=== PATIENT | female | born 1935 | race Caucasian/White ===

== ENCOUNTER 2019-01-11 16:30 | Emergency (ER) | payer MEDICARE, BC ==
[~2019-01-11] VITALS: Ht 162.6 cm; Wt 70.9 kg
[2019-01-11 16:35] VITALS: Ht 162.6 cm; Wt 70.9 kg
[2019-01-11] MEDS ORDERED: LEXAPRO10 MG (16:48)
[2019-01-11] MEDS ORDERED: FLUTICASONE PRO16 GM NASAL (16:49)
[2019-01-11] MEDS ORDERED: LYRICA50 MG (16:49)
[2019-01-11] MEDS ORDERED: MELATONIN10 M1 (16:49)
[2019-01-11] MEDS ORDERED: RISPERDAL1 MG PO (16:50)
[2019-01-11] MEDS ORDERED: TOPROL XL50 MG (16:50)
[2019-01-11] MEDS ORDERED: VITAMIN D3400 UNI1 PO (16:51)
[2019-01-11] MEDS ORDERED: ZOCOR20 MG PO (16:51)
[2019-01-11] MEDS ORDERED: TRAZODONE HCL150 MG PO (16:51)
[2019-01-11] MEDS ORDERED: TYLENOL650 MG (16:52)
[2019-01-11] MEDS ORDERED: ARTIFICIAL TEAR15 ML (16:52)
[2019-01-11 19:01] VITALS: BP 157/67
== END 2019-01-11 18:53 | disposition home or self-care (01) ==
LOC: D.ER 16:30
DX: M25.552 Pain in left hip (principal); M54.2 Cervicalgia; W07.XXXA Fall from chair, initial encounter; Y93.89 Activity, other specified; Y92.099 Unspecified place in other non-institutional residence as the place of occurrence of the external cause

== ENCOUNTER 2019-03-23 13:21 | Inpatient (IN) | payer MEDICARE, BC ==
[~2019-03-23 13:21] MED LIST: ARTIFICIAL TEAR15 ML; FLUTICASONE PRO16 GM NASAL; LEXAPRO10 MG; LYRICA50 MG; MELATONIN10 M1; RISPERDAL1 MG PO; TOPROL XL50 MG; TRAZODONE HCL150 MG PO; TYLENOL650 MG; VITAMIN D3400 UNI1 PO; ZOCOR20 MG PO
[2019-03-23] MEDS ORDERED: COLACE100 MG PO (13:31)
[2019-03-23] MEDS ORDERED: METOPROLOL TART50 MG PO (13:32)
[2019-03-23] MEDS ORDERED: RISPERDAL1 MG PO (13:33)
[2019-03-23] MEDS ORDERED: MUPIROCIN22 GM TOPICAL (13:33)
[2019-03-23] MEDS ORDERED: TRAZODONE HCL150 MG PO ×2 (13:35→23:16)
[2019-03-23 14:00] VITALS: BP 129/52
[2019-03-23 14:16] LABS: BASOPHILS 0.3 % (0-2); EOSINOPHILS 5.9 % (0-7); HEMATOCRIT 39.1 % (36.0-48.0); HEMOGLOBIN 13.1 g/dL (12-16); IMMATURE GRANULOCYTES 0.4 % (0-5); LYMPHOCYTES 23.9 % (15-50); MCHC 33.5 g/dL (31.0-37.0); MCV 89.7 fL (80.0-100.0); MEAN PLATELET VOLUME 11.6 fL (7.4-10.4); NEUTROPHILS 60.5 % (40-80); PLATELET COUNT 156 10x3/uL (130-400); RBC 4.36 10x6/uL (4.00-5.40); RDW 13.6 % (11.5-14.5); WBC 7.1 10x3/uL (4.8-10.8)
[2019-03-23 14:18] LABS: APTT 27.8 SECONDS (22.8-39.4); INR 1.07 (0.85-1.17); PROTIME 13.4 SECONDS (11.6-15.0)
[2019-03-23 14:28] LABS: ALBUMIN 3.6 g/dL (3.4-5.0); ALKALINE PHOSPHATASE 53 U/L (46-116); ALT (SGPT) 21 U/L (10-68); CALC OSMOLALITY 281 mosm/kg (275-300); CALCIUM 9.3 mg/dL (8.5-10.1); CHLORIDE - SERUM 101 mmol/L (98-107); CREATININE - SERUM 1.1 mg/dL (0.6-1.3); GLUCOSE 111 mg/dL (74-106); POTASSIUM - SERUM 4.3 mmol/L (3.5-5.1); PROTEIN - SERUM 7.8 g/dL (6.4-8.2); SODIUM 140 mmol/L (136-145); UREA NITROGEN 19 mg/dL (7-18); eGFR NON AFRICAN AMERICAN 50 mL/min (90-120)
[2019-03-23 14:40] LABS: CKMB 2.5 U/L (0.0-3.6); CREATINE KINASE 93 UL (21-215); PRO BNP 402 pg/mL (0-450)
[2019-03-23 14:41] LABS: TROPONIN-I < 0.017 ng/mL (0.000-0.060)
[2019-03-23 15:05] VITALS: BP 123/46
[2019-03-23 16:05] VITALS: BP 136/59
--- NOTE | 2019-03-23 16:20 | NUR ---
RECEIVED CALL FROM [place]. SPOKE WITH HER NURSE MYKE BAUTISTA. REPORT OF CONDITION GIVEN. INFORMED HER OF THE ADMISSION. MYKE BAUTISTA STATES THAT SHE WILL BE CALLING PT DAUGHTER TO UPDATE ON CONDITION AND WILL INFORM HER OF THE ADMISSION.
[2019-03-23 17:05] VITALS: BP 134/56
--- NOTE | 2019-03-23 17:50 | MORECARE ---
CASE MANAGEMENT DISCHARGE SUMMARY PATIENT: ANDI BRODY UNIT: [id number] ADM DATE: 03/23/19 AGE: 84 : 33 SEX: F ROOM/BED: D.2234 AUTHOR: HANSA GUAMAN PHYSICIAN: REFERRING PHYSICIAN: KAROLYN BANERJEE MD DATE OF SERVICE: 03/23/19 Discharge Plan Patient Name: ANDI BRODY [facility] [facility] 1935 Planned Disposition: Anticipated Discharge Date: Discharge Date: Expected LOS: Initial Reviewer: [email or web address] Initial Review Date: 03/23/2019 Generated: 03/23/19 6:50 pm Patient Name: ANDI BRODY Page [id number] at 1750 All edits/amendments must be made on the electronic document DICTATION DATE: 03/23/191748 AERONAUTICAL DESIGN ENGINEER: JERROD 03/23/191748 RPT#: [id number] DC DATE: STATUS: ADM IN [facility] [address] [place] [address] END OF REPORT
--- NOTE | 2019-03-23 19:15 | NUR ---
RECEIVED CARE FROM DAY NURSE. ASSISTED TO BATHROOM AND BACK TO BED. IV TO RIGHT AC AT O.
[2019-03-23 20:00] VITALS: BP 124/54
[2019-03-23] MEDS ORDERED: ZOCOR20 MG PO (23:01)
[2019-03-24] VITALS (7 sets, daily range): BP systolic 102–130; BP diastolic 41–63; BMI 27.5
[2019-03-24] MEDS ORDERED: ACETAMINOPHEN325 MG PO (00:19)
[2019-03-24] MEDS ORDERED: ARTIFICIAL TEAR15 ML EACH EYE (00:21)
[2019-03-24] MEDS ORDERED: KENALOG 0.1 % 115 GM TOPICAL (00:22)
[2019-03-24] MEDS ORDERED: LOPERAMIDE HCL2 MG PO (00:22)
--- NOTE | 2019-03-24 04:29 | NUR ---
I have reviewed this patient and I concur with the Shift Assessment completed by the Licensed Practical Nurse today this shift.
[2019-03-24 06:28] LABS: BASOPHILS 0 % (0-2); EOSINOPHILS 0 % (0-7); HEMATOCRIT 36.3 % (36.0-48.0); HEMOGLOBIN 11.8 g/dL (12-16); IMMATURE GRANULOCYTES 0.2 % (0-5); LYMPHOCYTES 11.3 % (15-50); MCH 29.1 pg (26.0-34.0); MCHC 32.5 g/dL (31.0-37.0); MCV 89.4 fL (80.0-100.0); MEAN PLATELET VOLUME 11.4 fL (7.4-10.4); MONOCYTES 3.6 % (2-11); NEUTROPHILS 84.9 % (40-80); RBC 4.06 10x6/uL (4.00-5.40); RDW 13.7 % (11.5-14.5); WBC 6.6 10x3/uL (4.8-10.8)
[2019-03-24 06:34] LABS: PLATELET COUNT 191 10x3/uL (130-400)
[2019-03-24 07:14] LABS: ALBUMIN 3.3 g/dL (3.4-5.0); ANION GAP 17.2 mmol/L (8-16); BILIRUBIN - TOTAL 0.36 mg/dL (0.2-1.3); CALCIUM 9.3 mg/dL (8.5-10.1); CARBON DIOXIDE 27.4 mmol/L (21.0-32.0); CREATININE - SERUM 1.1 mg/dL (0.6-1.3); POTASSIUM - SERUM 4.6 mmol/L (3.5-5.1); PROTEIN - SERUM 7.2 g/dL (6.4-8.2)
--- NOTE | 2019-03-24 09:00 | NUR ---
ALERT WITH WITH INTERMITTANT CONFUSION. COUGHING NOTED WITH SWALLOWING. ORDER FOR NPO AT THIS TIME UNTIL SPEECH CAN EVAL. LUNGS CTA. ABDOMEN SOFT WITH BS NTOED. MICHAEL MAT IN PLACE AT THIS TIME. O2 2L N/C. ENCOURAGED TO USE CALL LIGHT FOR ASSIST.
[2019-03-24 13:16] LABS: CKMB 11.5 U/L (0.0-3.6)
[2019-03-24 13:17] LABS: CREATINE KINASE 714 UL (21-215); TROPONIN-I < 0.017 ng/mL (0.000-0.060)
--- NOTE | 2019-03-24 19:15 | NUR ---
RECEIVED CARE FROM DAY NURSE. LYING IN BED ON BACK. COUGHING. CONTINUOUS PULSE OX INITIATED DUE TO FEAR OF FOOD ASPIRATION TODAY. PT REQUEST BED CARLISLE. CARLISLE PLACED AT THIS TIME BUT BED ALREADY SOILED. PT UNALBE TO GO ANYMORE. COMPLETE LINEN CHANGE DONE AT THIS TIME.
[2019-03-24 20:10] LABS: CKMB 9.1 U/L (0.0-3.6); CREATINE KINASE 741 UL (21-215); TROPONIN-I 0.036 ng/mL (0.000-0.060)
--- NOTE | 2019-03-24 23:40 | NUR ---
RECEIVED ORDER FOR TESSALON 200 MG TID FOR C/O COUGH.
[2019-03-25] VITALS: BP 123/57
[2019-03-25 01:27] LABS: CKMB 7.2 U/L (0.0-3.6); CREATINE KINASE 743 UL (21-215); TROPONIN-I 0.038 ng/mL (0.000-0.060)
--- NOTE | 2019-03-25 02:51 | NUR ---
PRODUCT DESIGN ENGINEER SHOWERING PT NOW
--- NOTE | 2019-03-25 03:25 | NUR ---
I have reviewed this patient and I concur with the Shift Assessment completed by the Licensed Practical Nurse today this shift.
[2019-03-25 04:00] VITALS: BP 131/61
[2019-03-25 05:33] LABS: BASOPHILS 0.2 % (0-2); HEMATOCRIT 33.8 % (36.0-48.0); HEMOGLOBIN 10.8 g/dL (12-16); IMMATURE GRANULOCYTES 0.3 % (0-5); MCH 29.3 pg (26.0-34.0); MEAN PLATELET VOLUME 11.6 fL (7.4-10.4); MONOCYTES 11.1 % (2-11); NEUTROPHILS 70.4 % (40-80); PLATELET COUNT 173 10x3/uL (130-400); RBC 3.69 10x6/uL (4.00-5.40); RDW 14.2 % (11.5-14.5)
[2019-03-25 06:05] LABS: BILIRUBIN - TOTAL 0.28 mg/dL (0.2-1.3); CALCIUM 8.7 mg/dL (8.5-10.1); CARBON DIOXIDE 30.1 mmol/L (21.0-32.0); CREATININE - SERUM 1.1 mg/dL (0.6-1.3); PROTEIN - SERUM 6.5 g/dL (6.4-8.2)
[2019-03-25 06:09] LABS: MCV 91.6 fL (80.0-100.0); WBC 8.6 10x3/uL (4.8-10.8)
[2019-03-25 06:13] LABS: ANION GAP 11.7 mmol/L (8-16); POTASSIUM - SERUM 3.8 mmol/L (3.5-5.1)
--- NOTE | 2019-03-25 07:15 | NUR ---
REC'D IN BED AWAKE AND ALERT. RESP EVEN AND UNLABORED WITH NO DISTRESS NOTED. CAN EXPRESS SOME NEEDS AND WANTS. NOC /O NOTED OR VOICED. ASSESSMENT COMPLETED. C/L IN REACH AT BEDSIDE.
[2019-03-25 08:16] VITALS: BP 145/61
--- NOTE | 2019-03-25 14:33 | NUR ---
OT NOTE: PT COMPLETED BED MOB WITH MIN A. PT COMPLETED EOB SITTING BALANCE WITH MIN A. PT COMPLETED HYGIENE TASKS WITH MIN A. THANK YOU, MALKA BARBOSA
[2019-03-25 14:37] VITALS: BMI 27.4
[2019-03-25 15:53] VITALS: BP 128/65
--- NOTE | 2019-03-25 16:19 | MORECARE ---
CASE MANAGEMENT DISCHARGE SUMMARY PATIENT: ANDI BRODY UNIT: [id number] ADM DATE: 03/23/19 AGE: 84 : 33 SEX: F ROOM/BED: D.2234 AUTHOR: HANSA GUAMAN PHYSICIAN: REFERRING PHYSICIAN: KAROLYN BANERJEE MD DATE OF SERVICE: 03/25/19 Discharge Plan Patient Name: ANDI BRODY [facility] [facility] 1935 Planned Disposition: Anticipated Discharge Date: Discharge Date: Expected LOS: Initial Reviewer: [email or web address] Initial Review Date: 03/23/2019 Generated: 03/25/19 5:19 pm Comments DCP- Discharge Planning Updated by [email or web address]: Magda Houston on 03/25/19 3:[address] Patient Name: ANDI BRODY Admission Status: ER Accout number: [id number] Admission Date: 03-23-2019 : 1935 Admission Diagnosis:ACUTE BRONCHITIS, UNSPECIFIED Attending: CHRISS, Current LOS: 2 Anticipated DC Date: Planned Disposition: Primary Insurance: MEDICARE A & B Discharge Planning Comments: PATIENT VERY CONFUSED AND UNABLE TO ANSWER QUESTIONS. PATIENT CHART STATES SHE IS FROM THE [facility]. CM TO FOLLOW AND ASSIST NEEDED. Extension Agent: Magda Houston Last DP export: 03/23/19 4:50 p Patient Name: ANDI BRODY Page 11786 at 1619 All edits/amendments must be made on the electronic document DICTATION DATE: 03/25/191618 KENNEL ATTENDANT: JERROD 03/25/191618 RPT#: [id number] DC DATE: STATUS: ADM IN [facility] [address] [place] [address] END OF REPORT
--- NOTE | 2019-03-25 17:07 | NUR ---
I have reviewed this patient and I concur with the Shift Assessment completed by the Licensed Practical Nurse today this shift.
[2019-03-25 20:00] VITALS: BP 143/72
[2019-03-26 06:33] VITALS: BP 121/67
[2019-03-26 06:46] LABS: BASOPHILS 0.4 % (0-2); EOSINOPHILS 2.9 % (0-7); HEMATOCRIT 33.9 % (36.0-48.0); IMMATURE GRANULOCYTES 0.3 % (0-5); LYMPHOCYTES 15.8 % (15-50); MCH 29.3 pg (26.0-34.0); MCHC 32.4 g/dL (31.0-37.0); MCV 90.4 fL (80.0-100.0); MEAN PLATELET VOLUME 11.5 fL (7.4-10.4); MONOCYTES 12.8 % (2-11); NEUTROPHILS 67.8 % (40-80); PLATELET COUNT 173 10x3/uL (130-400); RBC 3.75 10x6/uL (4.00-5.40); RDW 14.2 % (11.5-14.5); WBC 7.3 10x3/uL (4.8-10.8)
[2019-03-26 07:11] LABS: ALBUMIN 3.1 g/dL (3.4-5.0); ANION GAP 11.3 mmol/L (8-16); BILIRUBIN - TOTAL 0.95 mg/dL (0.2-1.3); CALCIUM 9.1 mg/dL (8.5-10.1); CARBON DIOXIDE 30.3 mmol/L (21.0-32.0); POTASSIUM - SERUM 3.6 mmol/L (3.5-5.1); PROTEIN - SERUM 6.9 g/dL (6.4-8.2)
--- NOTE | 2019-03-26 07:30 | NUR ---
PT RESTING IN BED. ALERT AND ORIENTED TO PERSON ONLY. NO ACUTE DISTRESS NOTED. O2 @ 3L NC IN PLACE. DENIES PAIN AT THIS TIME. SALINE LOC TO LEFT FOREARM INTACT. SITE WITHOUT REDNESS OR EDEMA. CL WITHIN REACH. MICHAEL MOLINA IN PLACE. CONTINUE POC
[2019-03-26 08:14] VITALS: BP 149/62
[2019-03-26 11:14] LABS: APPEARANCE CLEAR (CLEAR); BILIRUBIN NEGATIVE (NEGATIVE); COLOR YELLOW (YELLOW); GLUCOSE NEGATIVE (NEGATIVE); KETONE NEGATIVE (NEGATIVE); NITRITE NEGATIVE (NEGATIVE); PROTEIN NEGATIVE (NEGATIVE); UROBILINOGEN NORMAL (NORMAL)
[2019-03-26 11:46] VITALS: BP 148/82
--- NOTE | 2019-03-26 13:00 | MORECARE ---
CASE MANAGEMENT DISCHARGE SUMMARY PATIENT: ANDI BRODY UNIT: [id number] ADM DATE: 03/23/19 AGE: 84 : 33 SEX: F ROOM/BED: D.2234 AUTHOR: HANSA GUAMAN PHYSICIAN: REFERRING PHYSICIAN: KAROLYN BANERJEE MD DATE OF SERVICE: 03/26/19 Discharge Plan Patient Name: ANDI BRODY Facility: [facility]:[place] : 1935 Planned Disposition: Anticipated Discharge Date: Discharge Date: Expected LOS: Initial Reviewer: [email or web address] Initial Review Date: 03/23/2019 Generated: 03/26/19 2:00 pm Comments DCP- Discharge Planning Updated by [email or web address]: Sarah Hall on 03/26/19 11:[address] ISAIAH JACOBO, DIRECTOR OF HEALTH AND WELLNESS, AT [facility]. SHE WILL NEED TO BE NOTIFIED PRIOR TO DISCHARGE TO REASSESS THE PATIENT PRIOR TO RETURN. CALL [phone] MOBILE OR [phone] OFFICE. DCP- Discharge Planning Updated by [email or web address]: Magda Houston on 03/25/19 3:[address] Patient Name: ANDI BROYD Admission Status: ER Accout number: [id number] Admission Date: 03-23-2019 : 1935 Admission Diagnosis:ACUTE BRONCHITIS, UNSPECIFIED Attending: CHRISS, Current LOS: 2 Anticipated DC Date: Planned Disposition: Primary Insurance: MEDICARE A & B Discharge Planning Comments: PATIENT VERY CONFUSED AND UNABLE TO ANSWER QUESTIONS. PATIENT CHART [facility]. CM TO FOLLOW AND ASSIST NEEDED. Barrel Polisher Inside: Magda Houston Last DP export: 03/25/19 3:19 p Patient Name: ANDI BRODY Page [phone] at 1300 All edits/amendments must be made on the electronic document DICTATION DATE: 03/26/191258 CERNER ANALYST: JERROD 03/26/19 125 RPT#: [id number] DC DATE: STATUS: ADM IN [facility] [address] [place] [address] END OF REPORT
--- NOTE | 2019-03-26 13:44 | NUR ---
OT NOTE: PT UP IN BED WITH BREAKFAST TRAY IN FRONT OF HER BUT NOT EATING. SET UP TRAY AND OPENED PKGS..PROVIDED WITH THICKENED COFFEE. PT ABLE TO EAT WITH SET UP, HOWEVER, REQUIRED MOD CUEING TO STAY ON TASK. PROVIDED PT WITH WASH CLOTH AND SHE WAS ABLE TO WASH FACE AND HANDS WITH SET UP; COMBING HAIR WITH MIN ASSIST; COGNITIVE SKILLS DEV AND ORIENTATION TASKS. ROWAN LUNA, OTR/L
--- NOTE | 2019-03-26 13:51 | NUR ---
pt is from a facility
[2019-03-26 17:00] VITALS: BP 155/69
[2019-03-26 20:00] VITALS: BP 141/66
[2019-03-27 04:00] VITALS: BP 137/74
[2019-03-27 05:42] LABS: BASOPHILS 0.3 % (0-2); EOSINOPHILS 9.9 % (0-7); HEMATOCRIT 35.6 % (36.0-48.0); HEMOGLOBIN 11.4 g/dL (12-16); IMMATURE GRANULOCYTES 0.3 % (0-5); LYMPHOCYTES 18.9 % (15-50); MCH 29.6 pg (26.0-34.0); MEAN PLATELET VOLUME 11.4 fL (7.4-10.4); MONOCYTES 12.8 % (2-11); NEUTROPHILS 57.8 % (40-80); PLATELET COUNT 160 10x3/uL (130-400); RBC 3.85 10x6/uL (4.00-5.40); RDW 14.1 % (11.5-14.5); WBC 6.4 10x3/uL (4.8-10.8)
[2019-03-27 05:53] LABS: MCV 92.5 fL (80.0-100.0)
[2019-03-27 06:09] LABS: ALBUMIN 2.9 g/dL (3.4-5.0); ANION GAP 8.5 mmol/L (8-16); BILIRUBIN - TOTAL 0.58 mg/dL (0.2-1.3); CALCIUM 8.8 mg/dL (8.5-10.1); CREATININE - SERUM 1.1 mg/dL (0.6-1.3); POTASSIUM - SERUM 3.5 mmol/L (3.5-5.1); PROTEIN - SERUM 6.8 g/dL (6.4-8.2)
--- NOTE | 2019-03-27 08:22 | NUR ---
PT RESTING IN BED. CHEST RISING AND FALLING. NO S/S OF ACUTE DISTRESS. CL IN PLACE.
[2019-03-27 09:12] VITALS: BP 134/59
--- NOTE | 2019-03-27 11:19 | EC ---
PATIENT:ANDI BRODY DATE OF SERVICE: 03/23/19 SEX: F MEDICAL RECORD: [id number] DATE OF : [birth year] LOCATION:D.MS Du223 AGE OF PATIENT: 84 ADMISSION DATE: 03/23/19 REFERRING PHYSICIAN: INTERPRETING PHYSICIAN: HARIS JASSO MD ECHOCARDIOGRAM REPORT ECHO CHARGES 4 ECHO COMPLETE Date: 03/25/19 CLINICAL DIAGNOSIS: SOB ECHOCARDIOGRAPHIC MEASUREMENTS (adult normal given) AC root (d.<3.7cm) 2.8 cm LV Septum d (<1.2 cm> 1.0 cm Valve Excursion 1.0 cm LV Septum (systole) 1.7 cm Left Atria (s.<4.0cm> 3.9 cm LVPW d(<1.2cm) 1.0 cm RV (d.<2.3cm) 2.3 cm LVPW (sytole) 1.6 cm LV diastole(<5.6CM) 6.0 cm MV E-F(>70mm/sec) cm LV systole 4.3 cm LVOT Diameter 1.7 cm MV exc.(>10mm) cm Est.ejection fraction (50-75%) % DOPPLER: LVIT cm/sec A 213 cm/sec E 151 cm/sec LA cm/sec RVSP 27.2 mmHg LVOT 127 cm/sec AOP1/2T m/s Asc. Ao 366 cm/sec RVOT 95.0 cm/sec RA cm/sec PA 92.0 cm/sec AV Gradient Peak 54.0 mmHg AV Mean 30.0 mmHg AV Area 0.7 cm MV Gradient Peak 23.0 mmHg MV Mean 9.9 mmHg MV Area cm COMMENTS: Thread Cutter Tender: 1 [facility] Truck Driver: 1 Dr. Jasso TAPE# PACS Pericardial Effusion Y DATE OF SERVICE: 03/25/2019 PROCEDURE: Echocardiogram. FINDINGS: 1. Left ventricular chamber size is mildly dilated. Left ventricular systolic function is preserved at 55%. 2. Left atrium, right atrium, and right ventricular chamber sizes are within normal limits. 3. 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 There is a gradient of 54-mm across the valve. The remaining valvular structures have normal structure and motion. 4. Doppler interrogation elsewise reveals no significant valvular insufficiency or stenosis and pulmonary systolic pressure is normal estimated at 27 mmHg. 5. No evidence of pericardial effusion or left ventricular thrombus. TRANSINT:[id number] Voice Confirmation ID: [id number] DOCUMENT ID: [id number] HARIS JASSO MD at 1119 CC: [id number] DICTATION DATE: 03/25/191201 TEAM PSYCHOLOGIST: 03/25/19 120 ADM IN [place] [id number] [place] [id number]
--- NOTE | 2019-03-27 11:19 | CN ---
PATIENT NAME:ANDI BRODY MEDICAL RECORD: [id number] : 31 LOCATION:D.MS Du2234 ADMIT DATE: 03/23/19 ACCOUNT: [id number] CONSULTING PHYSICIAN: HARIS MONTEMAYOR MD REFERRING PHYSICIAN: KAROLYN BANERJEE MD DATE OF CONSULTATION: 03/25/2019 DIAGNOSES: 1. Shortness of breath, dyspnea on exertion. 2. Chest pain. 3. Pneumonia. 4. Chronic obstructive pulmonary disease. HISTORY OF PRESENT ILLNESS: Mrs. Brody has a history of dementia. She lives at the [facility] in the memory care section. She became more short of breath, came to the hospital with bronchitis/pneumonia and COPD exacerbation. She has been treated for this. She complained of chest pain yesterday. She denies any chest pain today. Her cardiac enzymes are normal. EKG, serial EKGs with no ST-T changes. She has no history of coronary artery disease that we know. She is on metoprolol for supposed hypertension and palpitations. She has had heart rates in the 120s associated with her updraft treatments and coughing since she has been in the hospital. Her systolic blood pressures in the 100 range now with heart rates in the 90s at this point. PHYSICAL EXAMINATION: GENERAL APPEARANCE: Well-nourished, well-developed, appears stated age. Level of distress, comfortable. PSYCHIATRIC: Mental status, alert, normal affect. Orientation, oriented to time, place and person. EYES: Lids and conjunctiva, noninjected. No discharge, no pallor. ENT: Lips, teeth, gums, normal dentition. Oropharynx, no cyanosis, no pallor. NECK: Carotid arteries, bilateral normal upstroke, no bruits, no thrills. JUGULAR VEINS: No jugular venous pressure or distention. CERVICAL LYMPH NODES: Nontender, nonenlarged. THYROID: Not enlarged. Nontender. No nodules. LUNGS: Respiratory effort, unlabored. CHEST: Normal curvature. No thoracic deformity. No chest wall tenderness. Percussion, resonant. Auscultation, clear. No wheezes, no rales, no rhonchi. CARDIOVASCULAR: Precordial exam, nondisplaced. No heaves or pericardial thrills. Rate and rhythm, regular. Heart sounds, normal S1, normal S2. No S3, no gallop, no rub. Systolic murmur, not heard. Diastolic murmur, not heard. EXTREMITIES: No cyanosis, no edema. Peripheral pulses, full and equal in all extremities, except as noted. No bruits appreciated. ABDOMEN: Soft, nondistended. Normal aorta. No bruit. Nontender. No masses. Liver, nontender, no hepatomegaly. Spleen, nontender, no splenomegaly. MUSCULOSKELETAL: No joint tenderness. No joint swelling. No erythema. NEUROLOGICAL: Normal gait, normal strength, normal tone. SKIN: Warm and dry. OVERALL IMPRESSION: Chest pain. No EKG changes, normal troponins in this patient with advanced memory issues, would only treat medically. Currently, her heart rates in the 90s. She is on metoprolol 50 mg b.i.d. Her systolic blood pressure has been running anywhere from 102-145. Would not up the metoprolol at this time due to her blood pressure. We will get an echocardiogram to assess her overall LV function. Otherwise, no other cardiac workup or treatment is CONSULT REPORT [id number] ANDI BRODY necessary. TRANSINT:[id number] Voice Confirmation ID: [id number] DOCUMENT ID: [id number] HARIS MONTEMAYOR MD at 1119 CC: [id number] DICTATION DATE: 03/25/19 0956 WIRE GALVANIZER: 03/25/19 1018 [place] [address]
[2019-03-27 12:09] VITALS: BP 148/59
--- NOTE | 2019-03-27 12:20 | NUR ---
Rehab Note- Acute Inpatient Rehab prescreen order received. Spoke with BHANU Monsivais. Will accept the patient to [facility] Acute Inpatient Rehab when medically stable and ready for discharge from the acute hospital. Will continue to follow at this time. THank you for this referral! Tiffani Rain RN CLinical Liaison, [facility] Rehab
--- NOTE | 2019-03-27 12:52 | MORECARE ---
CASE MANAGEMENT DISCHARGE SUMMARY PATIENT: ANDI BRODY UNIT: [id number] ADM DATE: 03/23/19 AGE: 84 : 33 SEX: F ROOM/BED: D.2234 AUTHOR: HANSA GUAMAN PHYSICIAN: REFERRING PHYSICIAN: KAROLYN BANERJEE MD DATE OF SERVICE: 03/27/19 Discharge Plan Patient Name: ANDI BRODY Facility: [facility]:[place] : 1935 Planned Disposition: Anticipated Discharge Date: Discharge Date: Expected LOS: Initial Reviewer: [email or web address] Initial Review Date: 03/23/2019 Generated: 03/27/19 1:52 pm Comments DCP- Discharge Planning Updated by [email or web address]: Yodit Rico on 03/27/19 11:[address] I spoke with PT today concerning discharge, they are recommending inpatient rehab. I called patient's daughter (Esteban) at [phone] to discuss inpatient rehab and left a message on her voicemail with my call back number. CM will continue to follow and assist with discharge planning/needs. DCP- Discharge Planning Updated by [email or web address]: Sarah Hall on 03/26/19 11:[address] ISAIAH JACOBO, DIRECTOR OF HEALTH AND WELLNESS, AT [facility]. SHE WILL NEED TO BE NOTIFIED PRIOR TO DISCHARGE TO REASSESS THE PATIENT PRIOR TO RETURN. CALL [phone] MOBILE OR [phone] OFFICE. DCP- Discharge Planning Updated by [email or web address]: Magda Houston on 03/25/19 3:[address] Patient Name: ANDI BRDOY Admission Status: ER Accout number: [id number] Admission Date: 03-23-2019 : 1935 Admission Diagnosis:ACUTE BRONCHITIS, UNSPECIFIED Attending: CHRISS, Current LOS: 2 Anticipated DC Date: Planned Disposition: Primary Insurance: MEDICARE A & B Discharge Planning Comments: PATIENT VERY CONFUSED AND UNABLE TO ANSWER QUESTIONS. PATIENT CHART STATES SHE IS FROM THE [facility]. CM TO FOLLOW AND ASSIST NEEDED. Assayer: Magda Houston Last DP export: 03/26/19 12:00 p Patient Name: ANDI BRODY Page 85229 at 1252 All edits/amendments must be made on the electronic document DICTATION DATE: 03/27/191250 BODY LINE FINISHER: JERROD 03/27/191250 RPT#: [id number] DC DATE: STATUS: ADM IN [facility] [address] [place] [address] END OF REPORT
--- NOTE | 2019-03-27 12:57 | NUR ---
OT NOTE: PT WITH DECREASED ALERTNESS TODAY. DIFFICULT TO AROUSE PT AND INCREASED DIFFICULTY TO STAY AWAKE. REQUIRED MOD ASSIST WITH BED MOB; AMB TO BATHROOM WITH WALKER AND MIN ASSIST; TOILETING WITH MOD ASSIST; ABLE TO JERMAINE GOWN WITH MOD ASSIST; ABLE TO JERMAINE PULL UP WITH MAX ASSIST; UNABLE TO GET PT TO EAT TODAY, HOWEVER, ABLE TO HOLD DRINK AND BRING TO MOUTH WITH SPV. REQ EXT TIME WITH PT DUE TO INCREASED CONFUSION AND DECREASED ALERTNESS. ORWAN LUNA, OTR/L
--- NOTE | 2019-03-27 14:22 | NUR ---
NUTRITION F/U CHART REVIEWED, PT VISIT. TOLERATING PUREED DIET WITH NECTAR LIQUIDS. > 50% INTAKE LUNCH TODAY. WILL CONTINUE TO PROVIDE DIET, MONITOR PO INTAKE. RD FOLLOWING
--- NOTE | 2019-03-27 16:13 | MORECARE ---
CASE MANAGEMENT DISCHARGE SUMMARY PATIENT: ANDI BRODY UNIT: [id number] ADM DATE: 03/23/19 AGE: 84 : 33 SEX: F ROOM/BED: D.2234 AUTHOR: ROWENA,DOC PHYSICIAN: REFERRING PHYSICIAN: KAROLYN BANERJEE MD DATE OF SERVICE: 03/27/19 Discharge Plan Patient Name: ANDI BRODY Facility: [facility]:[place] : 1935 Planned Disposition: Anticipated Discharge Date: Discharge Date: Expected LOS: Initial Reviewer: [email or web address] Initial Review Date: 03/23/2019 Generated: 03/27/19 5:13 pm Comments DCP- Discharge Planning Updated by [email or web address]: Yodit Rico on 03/27/19 3:[address] Patient's daughter (Esteban Millan) returned my call concerning discharge planning. She agrees if her mother is not safe to return to [facility] from Acute care that she can go to inpatient rehab here at [facility]. She states that because of her mental disability, she sometimes does better if she can just return to [facility]. I have informed Mary that daughter states ok for rehab or [facility]. Tiffani states they will accept patient to inpatient rehab here when medically stable. CM will continue to follow and assist with discharge planning/needs. Esteban Millan - DTR - [phone] DCP- Discharge Planning Updated by [id number]: Yodit Rico on 03/27/19 11:[address] I spoke with PT today concerning discharge, they are recommending inpatient rehab. I called patient's daughter (Esteban) at [phone] to discuss inpatient rehab and left a message on her voicemail with my call back number. CM will continue to follow and assist with discharge planning/needs. DCP- Discharge Planning Updated by [id number]: Sarah Hall on 03/26/19 11:[address] ISAIAH JACOBO, DIRECTOR OF HEALTH AND WELLNESS, AT [facility]. SHE WILL NEED TO BE NOTIFIED PRIOR TO DISCHARGE TO REASSESS THE PATIENT PRIOR TO RETURN. CALL [phone] MOBILE OR [phone] OFFICE. DCP- Discharge Planning Updated by [email or web address]: Magda Houston on 03/25/19 3:[address] Patient Name: ANDI BRODY Admission Status: ER Accout number: [id number] Admission Date: 03-23-2019 : 1935 Admission Diagnosis:ACUTE BRONCHITIS, UNSPECIFIED Attending: CHRISS, Current LOS: 2 Anticipated DC Date: Planned Disposition: Primary Insurance: MEDICARE A & B Discharge Planning Comments: PATIENT VERY CONFUSED AND UNABLE TO ANSWER QUESTIONS. PATIENT CHART STATES SHE IS FROM THE [facility]. TO FOLLOW AND ASSIST NEEDED. Sales Supervisor: Magda Houston Last DP export: 03/27/19 11:52 a Patient Name: ANDI BRODY Page 77796 at 1613 All edits/amendments must be made on the electronic document DICTATION DATE: 03/27/191611 GALVANIZER: JERROD 03/27/191611 RPT#: [id number] DC DATE: STATUS: ADM IN [facility] [address] [place] [address] END OF REPORT
[2019-03-27 16:24] VITALS: BP 131/46
--- NOTE | 2019-03-27 17:34 | NUR ---
OT NOTE: PT COMPLETED SELF FEEDING WITH SET UP AND MOD CUES . PT COMPLETED FACE WASH WITH SET UP AND MOD CUES. PT COMPLETED SITTING BALANCE WITH SBA. PT COMPLETED BED MOB WITH SBA. THANK YOU, MALKA BARBOSA
--- NOTE | 2019-03-27 18:42 | NUR ---
PT RESTING IN BED. PLESANTLY CONFUSED. BED ALARM ON. NO S/S OF ACUTE DISTRESS. CL IN PLACE.
--- NOTE | 2019-03-27 20:50 | NUR ---
AWAKE,ALERT,NO COMPLALINTS VOICED. RESP EVEN AND UNLABORED.IV TO LFA WITHOUT REDNESS OR EDEMA NOTED. CL IN REACH. BED ALARM ON.
[2019-03-27 20:56] VITALS: BP 132/62
--- NOTE | 2019-03-28 03:35 | NUR ---
I have reviewed this patient and I concur with the Shift Assessment completed by the Licensed Practical Nurse today this shift.
[2019-03-28 05:23] VITALS: BP 113/48
[2019-03-28 07:16] LABS: BASOPHILS 0.3 % (0-2); EOSINOPHILS 9.1 % (0-7); HEMATOCRIT 34.2 % (36.0-48.0); HEMOGLOBIN 10.8 g/dL (12-16); IMMATURE GRANULOCYTES 0.5 % (0-5); LYMPHOCYTES 18.6 % (15-50); MCH 29.2 pg (26.0-34.0); MCHC 31.6 g/dL (31.0-37.0); MCV 92.4 fL (80.0-100.0); MEAN PLATELET VOLUME 10.7 fL (7.4-10.4); NEUTROPHILS 62.5 % (40-80); PLATELET COUNT 159 10x3/uL (130-400); RDW 13.7 % (11.5-14.5); WBC 6.3 10x3/uL (4.8-10.8)
[2019-03-28 07:28] LABS: ALBUMIN 2.8 g/dL (3.4-5.0); ANION GAP 7.3 mmol/L (8-16); BILIRUBIN - TOTAL 0.39 mg/dL (0.2-1.3); CARBON DIOXIDE 33.3 mmol/L (21.0-32.0); CREATININE - SERUM 1.2 mg/dL (0.6-1.3); POTASSIUM - SERUM 3.6 mmol/L (3.5-5.1); PROTEIN - SERUM 6.3 g/dL (6.4-8.2)
--- NOTE | 2019-03-28 07:44 | NUR ---
PATIENT RECIEVED FROM PREVIOUS SHIFT RESTING IN BED. EASY TO AROUSE. ORIENTED TO PERSON AND PLACE. NO DISTRESS, NO NEEDS VOICED. CL IN EASY REACH
[2019-03-28 08:55] VITALS: BP 145/67
[2019-03-28 12:24] VITALS: BP 124/70
[2019-03-28] MEDS ORDERED: LEVAQUIN750 MG PO (12:26)
[2019-03-28] MEDS ORDERED: ALBUTEROL SULF8.5 GM INH (12:33)
--- NOTE | 2019-03-28 13:02 | MORECARE ---
CASE MANAGEMENT DISCHARGE SUMMARY PATIENT: ANDI BRODY UNIT: [id number] ADM DATE: 03/23/19 AGE: 84 : 33 SEX: F ROOM/BED: D.2234 AUTHOR: ROWENADOC PHYSICIAN: REFERRING PHYSICIAN: KAROLYN BANERJEE MD DATE OF SERVICE: 03/28/19 Discharge Plan Patient Name: ANDI BRODY Facility: [facility]:[place] : 1935 Planned Disposition: Anticipated Discharge Date: Discharge Date: Expected LOS: Initial Reviewer: [email or web address] Initial Review Date: 03/23/2019 Generated: 03/28/19 2:02 pm Comments DCP- Discharge Planning Updated by [email or web address]: Yodit Rico on 03/28/19 11:[address] Received order for discharge to inpatient rehab. I called and left a message with Tiffani. I called her daughter (Esteban) and she agrees with discharge to inpatient rehab today. CM will continue to follow and assist with discharge planning/needs. DCP- Discharge Planning Updated by [id number]: Yodit Rico on 03/27/19 3:[address] Patient's daughter (Esteban Millan) returned my call concerning discharge planning. She agrees if her mother is not safe to return to [facility] from Acute care that she can go to inpatient rehab here at [facility]. She states that because of her mental disability, she sometimes does better if she can just return to [facility]. I have informed Mary that daughter states ok for rehab or [facility]. Tiffani states they will accept patient to inpatient rehab here when medically stable. CM will continue to follow and assist with discharge planning/needs. Esteban Millan - DTR - [phone] DCP- Discharge Planning Updated by [email or web address]: Yodit Ottoerin on 03/27/19 11:[address] I spoke with PT today concerning discharge, they are recommending inpatient rehab. I called patient's daughter (Esteban) at [phone] to discuss inpatient rehab and left a message on her voicemail with my call back number. CM will continue to follow and assist with discharge planning/needs. DCP- Discharge Planning Updated by [email or web address]: Sarah Hall on 03/26/19 11:[address] ISAIAH JACOBO, DIRECTOR OF HEALTH AND WELLNESS, AT [facility]. SHE WILL NEED TO BE NOTIFIED PRIOR TO DISCHARGE TO REASSESS THE PATIENT PRIOR TO RETURN. CALL [phone] MOBILE OR [phone] OFFICE. DCP- Discharge Planning Updated by [email or web address]: Magda Rosemarie on 03/25/19 3:[address] Patient Name: ANDI BRODY Admission Status: ER Accout number: [id number] Admission Date: 03-23-2019 : 1935 Admission Diagnosis:ACUTE BRONCHITIS, UNSPECIFIED Attending: CHRISS, Current LOS: 2 Anticipated DC Date: Planned Disposition: Primary Insurance: MEDICARE A & B Discharge Planning Comments: PATIENT VERY CONFUSED AND UNABLE TO ANSWER QUESTIONS. PATIENT CHART STATES SHE IS FROM THE [facility]. CM TO FOLLOW AND ASSIST NEEDED. Applications Support Engineer: Magda Houston Coverage Notice Reviewer: [email or web address] Starla Rico Notice Issued Date-Time: 03/28/2019 12:59 Notice Type: IM Discharge Notice Notice Delivered To: Family Member Relationship to Patient: Daughter Security Screener Name: JaninaSeanDheeraj Monty Delivery Method: PHONE - Phone Thea Days: Prior Verbal Notification: Recipient Understood Notice: Yes Recipient Signature: Med Rec Note Co-signed by Attending: Coverage Notice Comment: IMM explained to daughter over the phone, she agrees with discharge today. Last DP export: 03/27/19 3:13 p Patient Name: ANDI BRODY Page 94786 at 1302 All edits/amendments must be made on the electronic document DICTATION DATE: 03/28/19 1301 C IRON WORKER: JERROD 03/28/19 1301 RPT#: [id number] DC DATE: STATUS: ADM IN [facility] [address] [place] [address] END OF REPORT
--- NOTE | 2019-03-28 14:55 | NUR ---
PATIENT WAS UNABLE TO EAT LUNCH. NOTIFIED DR LUNDBERG AND DISCUSSED WITH DIETITION WITH [place] DECREASED TO 20 UNTIL DINNER TO SEE IF THIS HELPS WITH INTAKE
--- NOTE | 2019-03-28 15:04 | NUR ---
OT NOTE: PT REMAINS LETHARGIC, BUT BETTER THAN YESTERDAY. BED MOB WITH MIN ASSIST; MAX ASSIST TO JERMAINE PULL UPS; MOD ASSIST WITH TOILET HYGIENE; MIN ASSIST WITH IN ROOM AMBULATION WITH WALKER; SINK HYGIENE WITH MIN ASSIST. PT STATED THAT SHE DID NOT FEEL WELL. MIN ASSIST WITH FEEDING. ROWAN LUNA, OTR/L
--- NOTE | 2019-03-28 15:07 | NUR ---
REPORT CALLED TO [facility] IN REHAB. PATIENT WILL BE TRANSPORTED BY WHEELCHAIR TO ROOM 13
--- NOTE | 2019-03-28 15:56 | NUR ---
PATIENT TAKEN BY WHEELCHAIR TO REHAB
[2019-03-28] MEDS ORDERED: TRAZODONE HCL150 MG PO (16:53)
[2019-03-28] MEDS ORDERED: LYRICA50 MG PO (16:53)
--- NOTE | 2019-03-28 17:16 | MORECARE ---
CASE MANAGEMENT DISCHARGE SUMMARY PATIENT: ANDI BRODY UNIT: [id number] ADM DATE: 03/23/19 AGE: 84 : 33 SEX: F ROOM/BED: D.2234 AUTHOR: ROWENADOC PHYSICIAN: REFERRING PHYSICIAN: KAROLYN BANERJEE MD DATE OF SERVICE: 03/28/19 Discharge Plan Patient Name: ANDI BRODY Facility: [facility]:[place] : 1935 Planned Disposition: Inpatient Rehab Anticipated Discharge Date: Discharge Date: 03/28/2019 Expected LOS: 0 Initial Reviewer: [email or web address] Initial Review Date: 03/23/2019 Generated: 03/28/19 6:16 pm Comments DCP- Discharge Planning Updated by [email or web address]: Yodit Rico on 03/28/19 11:[address] Received order for discharge to inpatient rehab. I called and left a message with Tiffani. I called her daughter (Esteban) and she agrees with discharge to inpatient rehab today. CM will continue to follow and assist with discharge planning/needs. DCP- Discharge Planning Updated by [email or web address]: Yodit Rico on 03/27/19 3:[address] Patient's daughter (Esteban Millan) returned my call concerning discharge planning. She agrees if her mother is not safe to return to [facility] from Acute care that she can go to inpatient rehab here at [facility]. She states that because of her mental disability, she sometimes does better if she can just return to [facility]. I have informed Mary that daughter states ok for rehab or [facility]. Tiffani states they will accept patient to inpatient rehab here when medically stable. CM will continue to follow and assist with discharge planning/needs. Esteban Millan - DTR - [phone] DCP- Discharge Planning Updated by [email or web address]: Yodit Rico on 03/27/19 11:[address] I spoke with PT today concerning discharge, they are recommending inpatient rehab. I called patient's daughter (Esteban) at [phone] to discuss inpatient rehab and left a message on her voicemail with my call back number. CM will continue to follow and assist with discharge planning/needs. DCP- Discharge Planning Updated by [email or web address]: Sarah Almaguers on 03/26/19 11:[address] ISAIAH JACOBO, DIRECTOR OF HEALTH AND WELLNESS, AT [facility]. SHE WILL NEED TO BE NOTIFIED PRIOR TO DISCHARGE TO REASSESS THE PATIENT PRIOR TO RETURN. CALL [phone] MOBILE OR [phone] OFFICE. DCP- Discharge Planning Updated by [email or web address]: Magda Rosemarie on 03/25/19 3:[address] Patient Name: ANDI BRODY Admission Status: ER Accout number: [id number] Admission Date: 03-23-2019 : 1935 Admission Diagnosis:ACUTE BRONCHITIS, UNSPECIFIED Attending: CHRISS, Current LOS: 2 Anticipated DC Date: Planned Disposition: Primary Insurance: MEDICARE A & B Discharge Planning Comments: PATIENT VERY CONFUSED AND UNABLE TO ANSWER QUESTIONS. PATIENT CHART STATES SHE IS FROM [facility]. CM TO FOLLOW AND ASSIST NEEDED. Ovens Supervisor: Magda Houston Coverage Notice Reviewer: [id number] Starla Rico Notice Issued Date-Time: 03/28/2019 12:59 Notice Type: IM Discharge Notice Notice Delivered To: Family Member Relationship to Patient: Daughter Reel Worker Name: JaninaSeanDheeraj Monty Delivery Method: PHONE - Phone Thea Days: Prior Verbal Notification: Recipient Understood Notice: Yes Recipient Signature: Med Rec Note Co-signed by Attending: Coverage Notice Comment: IMM explained to daughter over the phone, she agrees with discharge today. Last DP export: 03/28/19 12:02 p Patient Name: ANDI BRODY Page [id number] at 1716 All edits/amendments must be made on the electronic document DICTATION DATE: 03/28/191714 [employer] OFFICER: JERROD 03/28/191714 RPT#: [id number] DC DATE:03/28/19 STATUS: DIS IN [facility] [address] [place] [address] END OF REPORT
== END 2019-03-28 16:00 | DRG 202 ==
LOC: D.ER 13:21 → D.MS 16:39
PROVIDERS: Emergency Medicine; Family Medicine; Internal Medicine Nephrology; ADMIT Family Medicine; ATTEND Family Medicine
DX: J20.9 Acute bronchitis, unspecified (principal); G93.41 Metabolic encephalopathy; J44.1 Chronic obstructive pulmonary disease with (acute) exacerbation; I10 Essential (primary) hypertension; E86.0 Dehydration; E11.65 Type 2 diabetes mellitus with hyperglycemia

== ENCOUNTER 2019-03-28 16:19 | Inpatient (IN) | payer MEDICARE, BC ==
[~2019-03-28 16:19] MED LIST changes: +ACETAMINOPHEN325 MG PO; +ALBUTEROL SULF8.5 GM INH; +ARTIFICIAL TEAR15 ML EACH EYE; +COLACE100 MG PO; +KENALOG 0.1 % 115 GM TOPICAL; +LEVAQUIN750 MG PO; +LOPERAMIDE HCL2 MG PO; +METOPROLOL TART50 MG PO; +MUPIROCIN22 GM TOPICAL
[2019-03-28] MEDS ORDERED: TRAZODONE HCL150 MG PO (16:53)
[2019-03-28] MEDS ORDERED: LYRICA50 MG PO (16:53)
[2019-03-28 16:59] VITALS: BP 125/65; BMI 27.5
[2019-03-28 19:00] VITALS: BP 146/62
--- NOTE | 2019-03-28 20:18 | NUR ---
AWAKE AND ALERT. RESTING IN BED WITH RESPIRATIONS UNLABORED ON O2/3L PER NASAL CANNULA. NO ACUTE DISTRESS NOTED. ASSISTED TO BATHROOM AND BACK TO BED. CALL LIGHT IN REACH.
--- NOTE | 2019-03-29 04:55 | NUR ---
QUIET HOURS. RESTING IN BED WITH RESPIRATIONS UNLABORED. NO DISTRESS NOTED. CALL LIGHT IN REACH.
--- NOTE | 2019-03-29 08:00 | NUR ---
PATIENT IS ALERT/ WITH SOME CONFUSION NOTED. BED ALARM ON. CALL LIGHT WITHIN REACH. VOICES NO NEEDS AT THIS TIME. WILL CONTINUE WITH PLAN OF CARE
[2019-03-29 08:20] VITALS: BP 157/69
[2019-03-29 09:01] LABS: BASOPHILS 0.3 % (0-2); EOSINOPHILS 7.6 % (0-7); HEMATOCRIT 36.6 % (36.0-48.0); HEMOGLOBIN 11.5 g/dL (12-16); IMMATURE GRANULOCYTES 0.5 % (0-5); LYMPHOCYTES 19.7 % (15-50); MCH 29.1 pg (26.0-34.0); MCHC 31.4 g/dL (31.0-37.0); MCV 92.7 fL (80.0-100.0); MEAN PLATELET VOLUME 11.2 fL (7.4-10.4); MONOCYTES 8.1 % (2-11); NEUTROPHILS 63.8 % (40-80); PLATELET COUNT 190 10x3/uL (130-400); RBC 3.95 10x6/uL (4.00-5.40); RDW 13.5 % (11.5-14.5)
[2019-03-29 09:13] LABS: ANION GAP 8.6 mmol/L (8-16); CALCIUM 9.1 mg/dL (8.5-10.1); CARBON DIOXIDE 33.8 mmol/L (21.0-32.0); POTASSIUM - SERUM 3.4 mmol/L (3.5-5.1)
--- NOTE | 2019-03-29 10:18 | NUR ---
PATIENT IN REHAB ROOM. DENIES ANY PAIN/DISC AT THIS TIME.
[2019-03-29 12:23] VITALS: BMI 27.4
--- NOTE | 2019-03-29 14:26 | NUR ---
SPEECH THERAPIST IN PATIENTS ROOM. WORKING WITH PATIENT
--- NOTE | 2019-03-29 19:25 | NUR ---
ASSISTED TO AND FROM BATHROOM. DENIES FURTHER NEEDS AT THIS TIME. BED IN LOW. SIDE RAILS X2. BED ALARM ON. RESP EVEN AND UNLABORED. O2 ON 3L. CALL LIGHT IN REACH. WILL CONTINUE TO MONITOR.
[2019-03-29 19:59] VITALS: BP 189/73
--- NOTE | 2019-03-29 23:49 | NUR ---
ASSISTED TO AND FROM BATHROOM. DENIES FURTHER NEEDS AT THIS TIME. BED ALARM ON. CL IN REACH. CPOC
--- NOTE | 2019-03-30 00:11 | NUR ---
RESTING IN BED WITH EYES CLOSED AND RESPIRATIONS UNLABORED. NO ACUTE DISTRESS NOTED. CALL LIGHT IN REACH.
--- NOTE | 2019-03-30 03:05 | NUR ---
ASSISTED TO AND FROM BATHROOM. BACK IN BED. NO DISTESS NOTED AT THIS TIME. WCTM CL IN REACH
--- NOTE | 2019-03-30 05:37 | NUR ---
ASSISTED TO AND FROM BATHROOM. BACK IN BED. DENIES FURTHER NEEDS. WCTM CL IN REACH
[2019-03-30 08:51] VITALS: BP 125/48
--- NOTE | 2019-03-30 19:00 | NUR ---
PATIENT AWAKE BUT CONFUSED . ASSISTED TO BATHROOM WITH MIN ASSIST. NO COMPLAINTS AT THIS TIME. WILL CONTINUE TO MONITOR. CALL LIGHT WITHIN REACH.
[2019-03-30 21:46] VITALS: BP 146/56
--- NOTE | 2019-03-31 08:15 | NUR ---
PT RESTING IN BED WITH EYES OPEN CALL LIGHT IN REACH PT EATING BREAKFAST TOLERATING WELL WILL MONITER
--- NOTE | 2019-03-31 16:33 | NUR ---
PT RESTING IN BED WITH EYES OPEN CALL LIGHT IN REACH WILL MONITER
--- NOTE | 2019-03-31 18:23 | NUR ---
PT RESTING IN BED WITH EYES OPEN CALL LIGHT IN REACH WILL MONITER
--- NOTE | 2019-03-31 22:01 | NUR ---
PATIENT HAS BEEN CALLING OUT SEVERAL TIMES SO FAR THIS SHIFT. ASSISTED TO BATHROOM SEVERAL TIMES ALREADY. PATIENT COMPLAINING OF PAIN TO RECTUM. STATES THAT SHE FEELS LIKE SOMETHING IS IN HER RECTUM. CHECKED AND FOUND NOTHING IN RECTUM BUT SKIN AROUND RECTUM IS RED. CALMOSETPTINE APPLIED. PATIENT GIVEN PRN TYLENOL FOR PAIN. PATIENT RESTING IN BED AT THIS TIME TRYING TO SLEEP. WILL CONTINUE TO MONITOR. CALL LIGHT WITHIN REACH BUT SO FAR PATIENT IS NOT USING CALL LIGHT.
[2019-03-31 22:15] VITALS: BP 153/67
[2019-04-01 06:29] LABS: BASOPHILS 0.3 % (0-2); EOSINOPHILS 5.3 % (0-7); HEMATOCRIT 32.8 % (36.0-48.0); HEMOGLOBIN 10.6 g/dL (12-16); IMMATURE GRANULOCYTES 0.2 % (0-5); MCH 29.3 pg (26.0-34.0); MCHC 32.3 g/dL (31.0-37.0); MCV 90.6 fL (80.0-100.0); MEAN PLATELET VOLUME 11.2 fL (7.4-10.4); NEUTROPHILS 66.2 % (40-80); PLATELET COUNT 163 10x3/uL (130-400); RBC 3.62 10x6/uL (4.00-5.40); WBC 6.6 10x3/uL (4.8-10.8)
[2019-04-01 06:46] LABS: ANION GAP 8.4 mmol/L (8-16); POTASSIUM - SERUM 3.4 mmol/L (3.5-5.1)
[2019-04-01 08:00] VITALS: BP 139/58
--- NOTE | 2019-04-01 08:37 | NUR ---
PATIENT SITTING UP IN WHEELCHAIR AT BEDSIDE TO EAT BREAKFAST. HELPED TO BATHROOM BEFORE BREAKFAST. MIN ASST OF ONE USING WHEELED WALKER. BED/CHAIR ALARM ON. CALL LIGHT WITHIN REACH. VOICES NO NEEDS AT THIS TIME. WILL CONTINUE WITH PLAN OF CARE
--- NOTE | 2019-04-01 11:15 | NUR ---
PATIENT IN REHAB ROOM. WORKING WITH PHYSICAL THERAPIST.
--- NOTE | 2019-04-01 12:31 | NUR ---
RD follow up: Diet: regular mechanical soft; thin liquids Pt reported fair appetite. Observed pt eating lunch tray. No reported difficulty chewing or swallowing. Noted pt is diabetic and on regular diet. Glucose 117 (04/01/19) may need ADA diet. Will continue to monitor lab values, will modify diet pending elevated glucose.
--- NOTE | 2019-04-01 13:46 | NUR ---
SPEECH THERAPIST IN ROOM. WORKING WITH PATIENT
--- NOTE | 2019-04-01 17:42 | NUR ---
PATIENT SITTING UP IN WHEELCAHIR AT BEDSIDE TO EAT SUPPER. CHAIR ALARM ON
[2019-04-01 19:00] VITALS: BP 164/66
--- NOTE | 2019-04-01 19:22 | NUR ---
PT ASSISTED OUT OF THE BATHROOM WITH MOD ASSIST, AND BACK TO BED. ALERT TO SELF. CONFUSED TO TIME AND PLACE. O2 IS ON @ 3LPM PER NC. NO SOB NOTED. CALMOSEPTINE APPLIED TO BUTTOCKS PER PTS REQUEST. SR'S ARE UP X 3 IN BED. CALL LIGHT AND BEDSIDE TABLE ARE WITHIN EASY REACH. BED ALARM IS ON.
--- NOTE | 2019-04-01 21:40 | NUR ---
PT ASSISTED TO THE BATHROOM ABOUT EVERY 25 MINS. AFTER SHE SETS OFF HER BED ALARM TRYING TO TAKE HERSELF. SHE VOIDS SCANT URINE, AND IS ASSISTED BACK TO BED. URINE IS CLEAR YELLOW IN COLOR. NO ODOR DETECTED.
--- NOTE | 2019-04-02 00:01 | NUR ---
RESTING IN BED WITH EYES CLOSED. ASSISTED TO THE BATHROOM PRN.
--- NOTE | 2019-04-02 02:25 | NUR ---
RESTING IN BED WITH RESPIRATIONS UNLABORED. NO DISTRESS NOTED. CALL LIGHT IN REACH.
--- NOTE | 2019-04-02 05:57 | NUR ---
PT ASSISTED TO THE BATHROOM WITH MOD ASSIST AND MAX CUEING. PT KEPT SAYING, I CANT DO IT, TO ALL TASKS, UNTIL TOLD SHE COULD, AND THEN SHE WOULD.
--- NOTE | 2019-04-02 08:55 | NUR ---
PT AM MEDS ADMINISTERED. PT DENIES NEEDS. WCTM.
--- NOTE | 2019-04-02 17:46 | NUR ---
PT EATING DINNER, DENIES NEEDS. WCTM.
[2019-04-02 19:00] VITALS: BP 148/59
--- NOTE | 2019-04-02 19:23 | NUR ---
GREETED PATIENT AND ASSISTED TO BATHROOM USING WALKER. PATIENT BACK TO BED AND REPOSITIONED FOR COMFORT. CALL LIGHT IN REACH.
--- NOTE | 2019-04-02 19:49 | NUR ---
ASSISTED PATIENT TO BATHROOM USING WALKER. BACK TO BED AND REPOSITIONED FOR COMFORT. CALL LIGHT IN REACH.
--- NOTE | 2019-04-02 22:30 | NUR ---
PERFORMED BLADDER SCAN ON PATIENT DUE TO THE FACT THAT SHE STATES SHE STILL FEELS LIKE SHE NEEDS TO URINATE. BLADDER SCAN SHOWED 00 ML OF URINE IN SEVERAL SPOTS. PATIENT BACK TO BED AND RESPOSITIONED FOR COMFORT. CALL LIGHT IN REACH
--- NOTE | 2019-04-03 01:53 | NUR ---
PATIENT RESTING QUIETLY WITH EYES CLOSED. RESPIRATIONS EVEN. NO S/S OF DISTRESS. SR UP X 2. BED IN LOWEST POSITION. ALARM ON AND WORKING PROPERLY. CALL LIGHT IN REACH.
--- NOTE | 2019-04-03 03:22 | NUR ---
PATIENT BACK UP TO BATHROOM TO URINATE. PATIENT STATES THAT SHE FEELS LIKE SHE STILL NEEDS TO VOID. REPEATED BLADDER SCAN. RESULTS SHOWED 24 ML. WCTM.
[2019-04-03 07:20] LABS: BASOPHILS 0.1 % (0-2); EOSINOPHILS 4.1 % (0-7); HEMATOCRIT 33.7 % (36.0-48.0); HEMOGLOBIN 10.9 g/dL (12-16); IMMATURE GRANULOCYTES 0.5 % (0-5); LYMPHOCYTES 23.2 % (15-50); MCH 29.1 pg (26.0-34.0); MCHC 32.3 g/dL (31.0-37.0); MCV 90.1 fL (80.0-100.0); MEAN PLATELET VOLUME 10.7 fL (7.4-10.4); MONOCYTES 11.8 % (2-11); NEUTROPHILS 60.3 % (40-80); PLATELET COUNT 165 10x3/uL (130-400); RBC 3.74 10x6/uL (4.00-5.40); RDW 13.2 % (11.5-14.5); WBC 7.4 10x3/uL (4.8-10.8)
[2019-04-03 07:43] LABS: ANION GAP 7.4 mmol/L (8-16); CALCIUM 9.2 mg/dL (8.5-10.1); CARBON DIOXIDE 34.3 mmol/L (21.0-32.0); CREATININE - SERUM 1.2 mg/dL (0.6-1.3); POTASSIUM - SERUM 3.7 mmol/L (3.5-5.1)
--- NOTE | 2019-04-03 08:00 | NUR ---
PATIENT IN SITTING UP IN BED TO EAT BREAKFAST. CONFUSED AT TIMES. CALL LIGHT WITHIN REACH. BED ALARM ON. VOICES NO NEEDS. WILL CONTINUE WITH PLAN OF CARE
[2019-04-03 08:46] VITALS: BP 132/49
--- NOTE | 2019-04-03 10:06 | NUR ---
PATIENTS DAUGHTER IN ROOM. PATIENT SITTING IN A UP IN A CHAIR. CHAIR ALARM ON
--- NOTE | 2019-04-03 12:00 | NUR ---
SITTING UP IN CHAIR EATING LUNCH.
--- NOTE | 2019-04-03 12:18 | RHP ---
PATIENT: ANDI BRODY MEDICAL RECORD: [id number] ACCOUNT: [id number] [facility] [birth year] ADMISSION DATE: 03/28/19 REHABILITATION HISTORY AND PHYSICAL EXAMINATION POST ADMISSION PHYSICIAN EXAMINATION DATE OF ADMISSION: 03/28/2019. ADMITTING DIAGNOSES: Metabolic encephalopathy. HISTORY OF PRESENT ILLNESS: The patient is an 84-year-old female patient who is a resident of the memory care unit at the [facility], brought to the ED on 03/23/2019 with reports of a productive cough and lethargy, unable to complete any type or review of systems with the patient due to acute mental status changes. The patient was noted on exam to be able to answer simple questions. She was afebrile. She did complain of some chest pain and Cardiology was consulted. She is on metoprolol for hypertension and palpitations. Medications were adjusted. She had no further cardiac workup that was indicated. She was having some difficulty swallowing. A bedside swallow eval showed oropharyngeal dysphagia and recommended a mechanical soft pureed diet with thickened liquids and with speech therapy to follow and do dietary upgrades. Previously, she was living in a memory unit. She is moderately independent for ADLs and mobility with a rolling walker. Currently, she is mod to max assist for ADLs and mobility. She has increased O2 demands at 3 liters. She has sinus tachycardia. She has fair balance and impaired fine motor coordination. She would like to return back to [facility] at her prior level of functioning. COMORBIDITIES: In this patient include bronchitis, COPD, calcific aortic valve stenosis, metabolic encephalopathy, dehydration, dementia, type 2 diabetes, hypertension, shortness of breath, chest pain, pneumonia, COPD, confusion, lethargy, dementia, and anxiety. PAST MEDICAL HISTORY: Significant for diabetes, hypertension, COPD, dementia, and anxiety and confusion. PAST SURGICAL HISTORY: Please see previous charts. ALLERGIES: SULFASALAZINE AND ARAVA. CURRENT MEDICATIONS: Include Floranex 460 mg daily. She is on Levaquin 750 for a total of 5 doses. She is on Flonase nasal spray, Lexapro 10 mg daily, Colace 100 mg daily, vitamin D 2000 units daily, Calmoseptine to apply b.i.d., nystatin powder t.i.d., trazodone 50 mg q.h.s., Zocor 20 mg q.h.s., Risperdal 1.5 mg b.i.d., Lyrica 50 mg b.i.d., metoprolol 50 mg b.i.d., melatonin 9 mg q.h.s., loperamide 2 mg as needed for diarrhea. She is on Ventolin p.r.n. shortness of breath and Tylenol as needed. HABITS: No alcohol or tobacco use. FAMILY HISTORY: Noncontributory. SOCIAL HISTORY: The patient once again hopes to be able to return back to the [facility]. REVIEW OF SYSTEMS: Difficult to obtain secondary to her confusion. HISTORY AND PHYSICAL [id number] ANDI BRODY PHYSICAL EXAMINATION: GENERAL: A well-developed female, in no acute distress, alert upon exam. HEENT: Normocephalic and atraumatic. Mucosa moist. NECK: Supple, with no lymphadenopathy. LUNGS: Clear in upper toth. HEART: Regular rate and rhythm. No murmurs, rubs or gallops. ABDOMEN: Soft, nontender, nondistended. Positive bowel sounds times 4. EXTREMITIES: No clubbing, cyanosis or edema. NEUROLOGIC: She is slow to mentate and does have some noted weakness. 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 The patient has potential to make improvement. We instituted the following multidisciplinary therapies including, but not limited to physical, occupational, respiratory, speech, nutritional services, prosthetics and orthotics. Given her complex medical condition and risk for more complications, rehabilitation services cannot be provided at a low level of care such as skilled nurse facility. PLAN: 1. Admit to [facility] for an intensive inpatient therapy to include the following disciplines: A. Physical therapy to improve gait, all transfer skills and bed mobility to a modified independent level. B. Occupational therapy to improve activities of daily living to a modified independent level. C. Case management to assist with discharge planning and placement options. D. Nutrition to assist with nutritional needs. E. Rehabilitation nursing to assist in monitoring the patient's underlying medical conditions and to assist with any type of bowel and bladder management. 2. The patient's current medication and medical care will be continued. 3. The patient will be placed on standard fall precautions. 4. The patient's estimated length of stay is approximately 7-10 days. 5. We will discuss this patient during care team staff meeting this week. TRANSINT:[id number] Voice Confirmation ID: [id number] DOCUMENT ID: [id number] SHRUTI notes whether there has been none or any medical/functional change since admission: - No change since pre-admission screen. SHRUTI attests patient continues to be appropriate for IRF: - Continues to be appropriate. HISTORY AND PHYSICAL [id number] ANDI BRODY,ALLI HOPE MD at 1218 CC: [id number] DICTATION DATE: 03/29/19820 MANDREL PRESS HAND: 03/29/19 0839 ADM IN [facility] [address] [id number]
--- NOTE | 2019-04-03 13:05 | NUR ---
PATIENTS DAUGHTER IN ROOM WITH PATIENT. HELPING PATIENT TO BATHROOM. PATIENT IS A STAND BY ASST OF ONE
--- NOTE | 2019-04-03 16:35 | NUR ---
PATIENT DISCHARGING BACK TO THE MEMORY CARE AT THE [facility] VIA PRIVATE CAR WITH DAUGHTER. [facility] WILL SEE PATIENT IN 7-10 DAYS AND [facility] HOME WILL PROVIDE THERAPY. PATIENT CHOICE FORM AND IMFM FORMS SIGNED, COPY GIVEN TO DAUGHTER AND FILED IN CHART. DISCHARGE INSTRUCTIONS WITH [facility] FAXED TO THE [facility], PCP AND TO HOME HEALTH AND REVIEWED WITH DAUGHTER, AND FAXED TO [facility].
--- NOTE | 2019-04-03 17:01 | NUR ---
PATIENT HAS BEEN ACCEPTED TO THE [facility]. DISCHARGE ORDERS GIVEN TO DAUGHTER TO TAKE TO THE [facility]. PATIENT HELPED OUT TO CAR BY STAFF
== END 2019-04-03 17:04 | disposition home health service (06) | DRG 70 ==
LOC: D.REHAB 16:19
PROVIDERS: ADMIT Emergency Medicine; ATTEND Emergency Medicine
DX: G93.41 Metabolic encephalopathy (principal); J18.9 Pneumonia, unspecified organism; J44.1 Chronic obstructive pulmonary disease with (acute) exacerbation; F03.90 Unspecified dementia, unspecified severity, without behavioral disturbance, psychotic disturbance, mood disturbance, and anxiety; R07.9 Chest pain, unspecified; I10 Essential (primary) hypertension; R06.02 Shortness of breath; R53.83 Other fatigue; E86.0 Dehydration; I35.0 Nonrheumatic aortic (valve) stenosis; R13.12 Dysphagia, oropharyngeal phase; E11.65 Type 2 diabetes mellitus with hyperglycemia

== ENCOUNTER 2019-05-12 17:13 | Inpatient (IN) | payer MEDICARE, BC ==
[~2019-05-12] VITALS: Ht 162.6 cm; Wt 66.1 kg
--- NOTE | ~2019-05-12 | HEMODYNAMI ---
PATIENT:ANDI BRODY MEDICAL RECORD: [id number] : 31 LOCATION:[facility] D.2119 ADMISSION DATE: 05/12/19 Generatedon:05/13/20199:33 Patient name: ANDI BRODY Patient #: [id number] SSN: [id number] : 1935 Date of study: 05/13/2019 Page: Of Hemodynamic Procedure Report Patient Data Patient Demographics Procedure consent was obtained First Name: ANDI Gender: Female Last Name: MARY GRACE : 1935 Patient #: [id number] Age: 84 year(s) Race: SSN: [id number] Additional ID: [id number] Contact details [address]: [address] [place] [address] State: [place] City: [facility] Zip code: [address] Past Medical History Allergies Allergen Reaction Date Comments Reported Other allergy 05/13/2019 sulfa, leflunomide Admission Admission Data Admission Date: 05/12/2019 Admission Time: 19:13 Arrival Date: 05/13/2019 Arrival Time: 0:00 Admit Source: Emergency Insurance Payor: Medicare, department Private health insurance Room #: D.2119 [facility] #: [id number] Height (in.): 64 BSA: 1.72 (m2) Height (cm.): 162.56 BMI: 25.35 (kg/m2) Weight (lbs.): 147.71 Weight (kg.): 67 Lab Results Lab Result Date: 05/13/2019 Lab Result Time: 5:27 Biochemistry Name Units Result Min Max BUN mg/dl 16 --(---*)-- 7 18 Creatinine mg/dl 1.4 --(----)*- 0.6 1.3 CBC Name Units Result Min Max Hematocrit % 37 *-(----)-- 42 54 Hemoglobin g/dl 12.4 *-(----)-- 13.5 17.5 Procedure Procedure Types Cath Procedure Diagnostic Procedure [facility] w/Coronaries Procedure Description Procedure Date Procedure Date: 05/13/2019 Procedure Start Time: 9:18 Procedure Staff Name Function Alistair Jasso MD Performing Physician Jos Lockhart RT Monitor Perry Oliveros RT Scrub Jessica Boogie RT Scrub Sandeep Wallace RN Nurse Dario Plata RT Traditional Chinese Herbalist Indication Non-Q wave SD CAD Abnormal ECG Paroxysmal atrial fibrillation COPD Procedure Data Cath Procedure Fluoroscopy Diagnostic fluoroscopy Total fluoroscopy Time: 3.5 time: 3.5 min min Diagnostic fluoroscopy Total fluoroscopy dose: 360 dose: 360 mGy mGy Contrast Material Contrast Material Type Amount (ml) Isovue 300 56 Entry Location Entry Primary Successful Side Size Upsize Upsize Entry Closure Quiroga ccessful Closure Location (Fr) 1 (Fr) 2 (Fr) Remarks Device Remarks Radial Right 6 Fr Mechanical artery Short Compression Estimated blood loss: 5 ml Diagnostic catheters Device Type Used For End Catheter Placement DIAGNOSTIC [place] 110cm 5 Procedure Fr catheter ([id number]) DIAGNOSTIC AR2 MOD 5 Fr Procedure catheter ([id number]) Procedure Complications No complications Procedure Medications Medication Administration Route Dosage 0.9% NaCl I.V. 100 ml/hr Oxygen NC 2 l/min Heparin Flush Bag added to field 2 bags (1000units/500ml NS) Lidocaine 2% added to field 20 Radial Cocktail added to field 1 syringe (Verapamil 2mg/Nitro 400mcg/Heparin 1500units) Hemodynamics Rest BSA: 1.72 (m2) O2 Consumption: Estimated: 138.92 (ml/min) O2 Consumption indexed : Estimated:80.77 (ml/min/m) Heart Rate: 49 (bpm) Pressure Samples Time Site Value (mmHg) Purpose Heart Use Rate(bpm) 9:24 LV 94/6,12 Snapshot 51 Snapshots Pre Cath Intra NCS Post Cath Vital Signs Time Heart Resp SPO2 etCO2 NIBP Rhythm Pain Sedation Rate (ipm) (%) (mmHg) (mmHg) Status Level (bpm) 9:09:23 50 20 97 0 104/55(81) NSR 0 (11) 9(A) , No pain 9:13:35 49 20 97 0 100/51(76) NSR 0 (11) 9(A) , No pain 9:17:43 49 21 96 0 99/54(78) NSR 0 (11) 9(A) , No pain 9:21:55 51 20 97 0 86/41(71) NSR 0 (11) 9(A) , No pain 9:26:01 50 21 93 0 84/46(64) NSR 0 (11) 9(A) , No pain 9:30:09 50 20 94 0 90/42(71) NSR 0 (11) 9(A) , No pain Medications Time Medication Route Dose Verified Delivered Reason Notes E ffectiveness by by 9:07:36 0.9% NaCl I.V. 100 Sandeep Sandeep Per ml/hr Madison Wallace physician RN RN 9:07:47 Oxygen NC 2 l/min Sandeep Sandeep for low 02 Madison Wallace sats RN RN 9:07:58 Heparin Flush added 2 bags Sandeep Sandeep used for Bag to Madison Wallace procedure (1000units/500ml field RN RN NS) 9:08:09 Lidocaine 2% added 20ml Sandeep Sandeep for local to vial Lorigan Lorigan anesthetic field RN RN 9:20:38 Radial Cocktail added 1 Sandeep Sandeep for (Verapamil to syringe Lorigan Lorigan vasodilation 2mg/Nitro field RN RN 400mcg/Heparin 1500units) Procedure Log Time Note 8:45:59 Dario Plata RT(R) (CV) sent for patient. Start room use. 8:50:15 Informed consent obtained and on chart 8:51:10 Admit Source: Emergency department 8:51:12 Arrival Date: 05/13/2019 12:00:00 AM 8:51:20 Insurance Payor : Private health insurance, Medicare 8:52:20 Patient Weight : 147.71 lbs 8:52:25 Patient Height : 64 inches 8:53:00 Lab Result : Hematocrit 37 % 8:53:00 Lab Result : Creatinine 1.4 mg/dl 8:53:00 Lab Result : BUN 16 mg/dl 8:53:00 Lab Result : Hemoglobin 12.4 g/dl 8:53:26 Diagnostic Cath Status : Urgent 8:53:35 Indication : Non-Q wave SD 8:53:40 Indication : CAD 8:53:46 Indication : Abnormal ECG 8:53:50 Indication : Paroxysmal atrial fibrillation 8:53:55 Indication : COPD 8:54:46 Patient allergic to Other allergysulfa, leflunomide 8:54:54 ACC Patient presents with Non-STEMI CCS Anginal Class 4--Inability to carry out any physical activity w/o angina. Angina may occur at rest. 8:54:57 Procedure Status Urgent Heart Cath (IP). 8:55:04 Time tracking: Regular hours (M-F 7:00 - 5:00) 8:55:08 Plan of Care:Hemodynamics will remain stable., Cardiac rhythm will remain stable., Comfort level will be maintained., Respiratory function will remain adequate., Patient/ family verbilizes understanding of procedure., Procedure tolerated without complication., Recovers from procedure without complications.. 8:55:13 Patient received from Med II to CCL 1 Alert and oriented. Tansferred to table in Supine position. 8:55:13 Warm blankets applied, and abby hugger turned on for patient comfort. 8:55:14 Correct patient and procedure confirmed by team. 8:55:14 ECG and BP/O2 sat monitors applied to patient. 8:55:23 H&P Date Dictated: 05/12/2019 Within 30 days and on chart.. 8:55:25 Pre-procedure instructions explained to patient. 8:55:25 Pre-op teaching completed and patient verbalized understanding. 8:55:27 Family in patients room. 8:55:28 Patient NPO since Midnight. 8:55:29 Is the patient allergic to Iodine/contrast media? No. 9:07:36 0.9% NaCl 100 ml/hr I.V. was administered by Sandeep Wallace RN; Per physician; 9:07:47 Oxygen 2 l/min NC was administered by Sandeep Wallace RN; for low 02 sats; 9:07:58 Heparin Flush Bag (1000units/500ml NS) 2 bags added to field was administered by Sandeep Wallace RN; used for procedure; 9:08:09 Lidocaine 2% 20ml vial added to field was administered by Sandeep Wallace RN; for local anesthetic; 9:08:11 Vital chart was started 9:10:05 Baseline sample Acquired. 9:10:13 Rhythm: sinus bradycardia 9:10:16 Full Disclosure recording started 9:11:51 Is patient on blood thinner?No 9:11:53 Patient diabetic? Yes. 9:11:55 Previous problem with sedation/anesthesia? No ? 9:11:59 Snore? Unknown 9:12:00 Sleep apnea? Unknown 9:12:02 Deviated septum? No 9:12:03 Opens mouth fully? Yes 9:12:04 Sticks out tongue? Yes 9:12:07 Airway obstruction? Yes COPD 9:12:11 Dentures? Yes IN TIGHT 9:12:13 Pre procedure: right dorsailis pedis pulse 1+ Palpable, but thready & weak; easily obliterated 9:12:15 Modified Jax's test Ulnar < 7 seconds 9:12:17 Patient pain scale 0/10 ?. 9:12:26 IV left antecubital D/C'd due to infiltration. 9:12:50 IV started by Alistair Jasso MD inright forearm with a 20 gauge IV catheter with 0.9% NaCl at KVO. 9:12:52 Lab results completed and on chart. 9:12:54 Right Radial & Right Groin area was prepped with chlora-prep and draped in sterile fashion 9:12:55 Alarms reviewed by R. N. 9:12:55 Sharps counted by scrub and verified by R.N. 9:12:57 Use device set Radial Dx or PCI 9:12:58 ACIST Syringe (10012) opened to sterile field. 9:12:58 Medline Cath Pack ([id number]) opened to sterile field. 9:12:59 ACIST Hand Control (84182) opened to sterile field. 9:12:59 ACIST Manifold (42770) opened to sterile field. 9:13:00 Tegaderm 4 x 4 (1626W) opened to sterile field. 9:13:00 Bag Decanter (2001S) opened to sterile field. 9:13:01 MBrace Wrist Support ([id number]) opened to sterile field. 9:13:02 SHEATH 6FR RAIN (7045410) opened to sterile field. 9:13:03 EMERALD Guide Wire (681-315) opened to sterile field. 9:13:09 Physician arrived 9:13:10 --------ALL STOP TIME OUT------ 9:13:10 Final Timeout: patient, procedure, and site verified with staff and physician. All members of the team are in agreement. 9:13:12 Right Radial & Right Groin site verified by team. 9:13:14 Fire Safety Assessment: A--An alcohol-based skin anteseptic being used preoperatively., C--Open oxygen or nitrous oxide is being used., D--An ESU, laser, or fiber-optic light is being used. 9:13:17 Physical assessment completed. ASA score P 3 - A patient with severe systemic disease as per Alistair Jasso MD. 9:13:32 3b) 30-44 Moderately reduced kidney function. 9:13:35 Maximum allowable contrast dose (3.7 X eGFR X 0.75)105 ml. 9:13:54 Sedation plan: Local Anesthetic Medication:Lidocaine 9:18:07 Procedure started. 9:18:42 Local anesthetic to right radial artery with Lidocaine 2% by Alistair Jasso MD.INITIAL ACCESS ONLY 9:18:45 Zero performed for pressure channel P1 9:18:59 A 6 Fr Short sheath was inserted into the Right Radial artery 9:20:21 Zero performed for pressure channel P1 9:20:25 Zero performed for pressure channel P1 9:20:35 A DIAGNOSTIC [place] 110cm 5 Fr catheter ([id number]) was advanced over the wire and used for Procedure. 9:20:38 Radial Cocktail (Verapamil 2mg/Nitro 400mcg/Heparin 1500units) 1 syringe added to field was administered by Sandeep Wallace RN; for vasodilation; 9:21:31 GLIDE WIRE ANGLE 260cm (PP9991) opened to sterile field. 9:21:40 GLIDE wire advanced. 9:23:47 Wire removed. 9:23:49 LV gram done using FOY 9:23:52 Injector settings: Ml/sec: 5, Volume: 15, 9:23:53 LV hemodynamics recorded. 9:24:12 EF : 60 % 9:24:18 LCA angiography performed. 9:27:18 Catheter exchanged over wire. 9:27:24 A DIAGNOSTIC AR2 MOD 5 Fr catheter ([id number]) was advanced over the wire and used for Procedure. 9:27:40 RCA angiography performed. 9:28:51 ACCDominant side:Left 9:28:54 Catheter removed. 9:28:58 TR BAND Standard ([id number]) opened to sterile field. 9:29:06 Sheath removed intact; hemostasis achieved with Mechanical Compression to the Right Radial artery. 9:29:08 Procedure ended.(Physican Out) 9:30:33 Fluoroscopy time 03.50 minutes. 9:30:54 Fluoroscopy dose: 360 mGy 9:30:54 Flurop Dose total: 360 9:31:01 Dose Area Product 84421 mGy/cm. 9:31:05 Contrast amount:Isovue 300 56ml. 9:31:07 Maximum allowable dose exceeded? No. 9:31:07 Sharps counted by scrub and verified by R.N. 9:31:09 TR band inflated with 12cc of air. 9:31:10 Insertion/operative site no bleeding no hematoma. 9:31:15 Post right radial artery:stable, soft, clean and dry 9:31:17 Post Procedure Pulses reassessed and unchanged 9:31:19 Post-procedure physical assessment completed. ASA score P 3 - A patient with severe systemic disease as per Alistair Jasso MD. 9:31:21 Post procedure rhythm: unchanged. 9:31:23 Estimated blood loss: 5 ml 9:31:25 Post procedure instruction explained to patient.Patient verbalizes understanding. 9:31:25 Patient needs reinforcement of post procedure teaching. 9:31:43 Procedure and supply charges have been captured, reviewed, submitted and are correct. 9:31:46 Procedure Complication : No complications 9:31:48 Vital chart was stopped 9:31:49 See physician's report for complete and final results. 9:31:50 Report given to Med II. 9:32:00 Patient transfered to Med II with Stretcher. 9:32:04 End room use (Document Last) Device Usage Item Name Manufacture Quantity Catalog Hospital Part Current Minima l Lot# / Number Charge Number Stock Stock Serial# Code ACIST Acist 1 35209 346468 590603 662359 20 Syringe Medical (58084) Systems Inc Medline Medline 1 [id number] 472551 72711 862133 5 Cath Pack ([id number]) ACIST Hand Acist 1 97059 854005 388454 294984 5 Control Medical (70352) Systems Inc ACIST Acist 1 18568 044451 495378 582380 5 Manifold Medical (49927) Systems Inc Tegaderm 4 3M 1 1626W 675040 656437 681578 5 x 4 (1626W) Bag Microtek 1 796512 74473 210450 5 Decanter Medical Inc. () MBrace Advanced 1 140-0250-00 150076 09898 310163 5 Wrist Vascular Support Dynamics ([id number]) SHEATH 6FR Cardinal 1 4462360 820596 5611911 449185 5 RAIN Health (8828626) EMERALD Cardinal 1 732-110 834267 006993 787292 5 Guide Wire Health (244-408) DIAGNOSTIC Terumo 1 40-5013 831918 836390 856014 5 [place] 110cm 5 Fr catheter (881938) GLIDE WIRE Terumo 1 RL3614 852953 056839 915833 5 ANGLE 260cm (PJ0569) DIAGNOSTIC Cardinal 1 189216V 796272 980118 762425 20 AR2 MOD 5 Health Fr catheter (483168N) TR BAND Terumo 1 OLO97-PTY 190206 610764 601912 40 Standard ([id number]) Signature Audit [place] Stage Time Signature Unsigned Intra-Procedure 05/13/2019 Jos Lockhart 9:33:30 AM RT(R) Signatures Performing Physician : Signature : Alistair Jasso MD Date : Time : Monitor : Jos Lockhart RT Signature : Date : Time : Nurse : Sandeep Wallace Signature : RN Date : Time : [facility] [address] [place] [address]
[~2019-05-12 17:13] MED LIST changes: +LYRICA50 MG PO
[2019-05-12 17:24] LABS: BASOPHILS 0.3 % (0-2); EOSINOPHILS 2.9 % (0-7); HEMOGLOBIN 12.4 g/dL (12-16); IMMATURE GRANULOCYTES 0.2 % (0-5); LYMPHOCYTES 15.5 % (15-50); MCH 29.5 pg (26.0-34.0); MCHC 33.5 g/dL (31.0-37.0); MCV 87.9 fL (80.0-100.0); MEAN PLATELET VOLUME 11.3 fL (7.4-10.4); MONOCYTES 5.9 % (2-11); NEUTROPHILS 75.2 % (40-80); RBC 4.21 10x6/uL (4.00-5.40); RDW 13.5 % (11.5-14.5); WBC 8.9 10x3/uL (4.8-10.8)
--- NOTE | 2019-05-12 17:27 | NUR ---
PATIENT PLACED ON QUIK COMBO PADS, EDP PAVEL AT BEDSIDE.
[2019-05-12 17:33] LABS: PLATELET COUNT 211 10x3/uL (130-400)
[2019-05-12 17:35] LABS: APTT 26.6 SECONDS (22.8-39.4); INR 1.1 (0.85-1.17); PROTIME 13.7 SECONDS (11.6-15.0)
[2019-05-12 17:37] VITALS: BP 119/50
[2019-05-12 17:45] LABS: ALBUMIN 3.5 g/dL (3.4-5.0); ALKALINE PHOSPHATASE 66 U/L (46-116); ALT (SGPT) 33 U/L (10-68); BILIRUBIN - TOTAL 0.51 mg/dL (0.2-1.3); CALC OSMOLALITY 275 mosm/kg (275-300); CALCIUM 9.3 mg/dL (8.5-10.1); CHLORIDE - SERUM 99 mmol/L (98-107); CREATININE - SERUM 1.4 mg/dL (0.6-1.3); POTASSIUM - SERUM 4.4 mmol/L (3.5-5.1); PROTEIN - SERUM 7.6 g/dL (6.4-8.2); SODIUM 135 mmol/L (136-145); UREA NITROGEN 15 mg/dL (7-18); eGFR NON AFRICAN AMERICAN 38 mL/min (90-120)
[2019-05-12 17:47] LABS: GLUCOSE 196 mg/dL (74-106)
[2019-05-12 17:59] LABS: CKMB 6.1 U/L (0.0-3.6); CREATINE KINASE 179 UL (21-215); MAGNESIUM - SERUM 1.3 mg/dL (1.8-2.4)
--- NOTE | 2019-05-12 18:09 | NUR ---
PT REPORTS BOWEL MOVEMENT. PT APPEARS TO BE IN NORMAL SINUS RHYTHM AT THIS TIME. ADVISED EDP. HR 79
--- NOTE | 2019-05-12 18:10 | NUR ---
PROVIDED PT WITH WARM BLANKET AND REPOSITIONED PATIENT IN BED FOR COMFORT.
[2019-05-12 18:17] VITALS: BP 119/50
[2019-05-12 18:17] LABS: TROPONIN-I 0.647 ng/mL (0.000-0.060)
--- NOTE | 2019-05-12 18:17 | NUR ---
PER EDP PAVEL GIVE PATIENT 80 MG SOTOLOL PO NOW AND RUN CARDIZEM FOR 1 HOUR AND D/C.
--- NOTE | 2019-05-12 18:40 | NUR ---
PT HAD ANOTHER BM. CLEANED PATIENT, PLACED PT IN NEW BRIEF, AND PLACED CLEAN BLUE PAD UNDER PATIENT
[2019-05-12 19:01] VITALS: BP 131/65
--- NOTE | 2019-05-12 20:11 | NUR ---
PT ARRIVED VIA STRETCHER FROM ER. PT CONFUSED, ORIENTED TO PERSON ONLY. INCONTINENT OF STOOL UPON ARRIVAL. PT CELANED. IV TO LAC SL. SB PER CM HR 55.VSS. SR UP X2, CALL LIGHT WITHIN REACH AND BED ALARM ON.
--- NOTE | 2019-05-12 22:05 | NUR ---
PT RESTING WITH EYES CLOSED. RESP EVEN AND REGULAR. SR UP X2,CALL LIGHT WITHIN REACH AND BED ALARM ON.
[2019-05-12 22:32] VITALS: BP 105/58; BMI 25.5
--- NOTE | 2019-05-12 23:29 | NUR ---
DR MONTEMAYOR ON FLOOR. INFORMED OF PT'S HR FROM 34 SB TO UCAF IN 180'S WITH RUNS OF VT INBETWEEN. DR MONTEMAYOR STATES WILL SEE PT.
--- NOTE | 2019-05-12 23:52 | NUR ---
DR MONTEMAYOR NOTIFIED OF PT'S HR 78 SR. STATES TO STILL GIVEN CARDIZEM BOLUS AND DRIP.
[2019-05-13] VITALS: BP 103/51
--- NOTE | 2019-05-13 00:29 | NUR ---
CARDIZEM 1OMG BOLUS SIVP GIVEN. CARDIZEM DRIP INITIATED AT 5MG/HR. PT DENIES ANY CP. O2 SAT 97% ON 2LNC. SR UP X3, CALL LIGHT WITHIN REACH AND BED ALARM ON.
[2019-05-13 01:18] VITALS: BP 120/61
--- NOTE | 2019-05-13 01:27 | NUR ---
HR LOW 70'S SR. BP 120/61. ASSISTED TO BR. VOIDED MODERATE AMOUNT OF URINE. ASSISTED BACK TO BED. GAIT UNSTEADY. REPOSITIONED IN BED FOR COMFORT. SR UP X2,CALL LIGHT WITHIN REACH AND BED ALARM ON.
--- NOTE | 2019-05-13 01:40 | NUR ---
UCAF PER CM HR 132. PT RESTING WITH EYES CLOSED. RESP EVEN AND REGULAR. CARDIZEM DRIP INFUSING AT 5MG/HR. SR UP X2,CALL LIGHT WITHIN REACH AND BED ALARM ON.
[2019-05-13 04:00] VITALS: BP 160/58
--- NOTE | 2019-05-13 04:34 | NUR ---
GUS CRACKERS GIVEN PER REQUEST. UCAF PER CM HR 120'S TO 140'S. PT DENIES ANY SOB OR DISCOMFORT. SR UP X3, CALL LIGHT WITHIN REACH AND BED ALARM ON.
--- NOTE | 2019-05-13 05:49 | NUR ---
EKG DONE. UCAF PER CM HR 136. TYLENOL 650 MG PO GIVEN FOR C/O BALDWIN. WILL CONTINUE TO MONITOR. SR UP X2, CALL LIGHT WITHIN REACH.
--- NOTE | 2019-05-13 06:03 | NUR ---
SR HR 61 PER CM. PT RESTING WITH EYES CLOSED. RESP EVEN AND REGULAR. SR UP X3, CALL LIGHT WITHIN REACH AND BED ALARM ON.
--- NOTE | 2019-05-13 06:41 | NUR ---
ASSISTED PT TO BR. VOIDED 300CC OF YELLOW URINE. ASSISTED BACK TO BED. PT THEN STATES SHE NEEDS TO GO TO THE BR. INFORMED PT THAT SHE JUST CAME OUT OF THE BR. PT THEN STATES NO SHE DID NOT JUST GO TO THE BR. SR UP X3, CALL LIGHT WITHIN REACH AND BED ALARM ON.
[2019-05-13 07:41] LABS: CREATINE KINASE 892 UL (21-215)
[2019-05-13 07:43] LABS: TROPONIN-I 44.653 ng/mL (0.000-0.060)
[2019-05-13 07:44] LABS: CKMB 140.8 U/L (0.0-3.6)
--- NOTE | 2019-05-13 08:09 | NUR ---
ALERT AND ORIENTED TO PERSON AND PLACE. TELEMERTY SHOWS SR 70. LEFT AC WITH CARDIZEM AT 5. UP WITH ASSIST. SR UP TIMES 3 WITH CALL LIGHT IN REACH. DENIES ANY NEEDS. TROPIN UP. DR MONTEMAYOR NOTIFED. VERBAL CONSENT GIVEN TO HENRIETTA Patel RN AND MYSELF
[2019-05-13 08:16] LABS: ANION GAP 14.4 mmol/L (8-16); CALCIUM 9.2 mg/dL (8.5-10.1); CARBON DIOXIDE 25.7 mmol/L (21.0-32.0); CREATININE - SERUM 1.4 mg/dL (0.6-1.3); POTASSIUM - SERUM 4.1 mmol/L (3.5-5.1)
[2019-05-13 09:01] LABS: BASOPHILS 0.2 % (0-2); EOSINOPHILS 2.2 % (0-7); HEMATOCRIT 36.2 % (36.0-48.0); HEMOGLOBIN 11.8 g/dL (12-16); IMMATURE GRANULOCYTES 0.2 % (0-5); LYMPHOCYTES 20.4 % (15-50); MCH 29.1 pg (26.0-34.0); MCHC 32.6 g/dL (31.0-37.0); MCV 89.4 fL (80.0-100.0); MEAN PLATELET VOLUME 11.7 fL (7.4-10.4); MONOCYTES 7.3 % (2-11); NEUTROPHILS 69.7 % (40-80); PLATELET COUNT 227 10x3/uL (130-400); RBC 4.05 10x6/uL (4.00-5.40); RDW 13.7 % (11.5-14.5); WBC 9.1 10x3/uL (4.8-10.8)
[2019-05-13 09:42] VITALS: BP 107/54
--- NOTE | 2019-05-13 09:57 | NUR ---
BACK FROM MAJOR GIFTS DIRECTOR. TR BAND TO RIGHT WRIST. NO BLEEDING, FINGERS WARM. V/S B/P 95/46, HR 48, RESP 18 AND 02 SAT 95. WILL MONITOR. SR UP WITH CALL LIGHT IN REACH
--- NOTE | 2019-05-13 12:37 | NUR ---
HR DROPPING TO 32-37. AROUSES WHEN AWAKEN. PAGE INTO DR MONTEMAYOR, HE CALLED BACK AND SAID TO OBSERVE. MYKE ORDONEZ PRIMARY NURSE IN ROOM WITH PATIENT.
[2019-05-13 12:40] LABS: % SATURATION 25 % (15-55); IRON 78 ug/dl (35-150); TOTAL IRON BIND CAPACITY 311 ug/dl (260-445); UNSAT IRON BIND CAPACITY 233 ug/dl (150-375)
--- NOTE | 2019-05-13 14:11 | MORECARE ---
CASE MANAGEMENT DISCHARGE SUMMARY PATIENT: ANDI BRODY UNIT: [id number] ADM DATE: 05/12/19 AGE: 84 : 33 SEX: F ROOM/BED: D.2119 AUTHOR: HANSA GUAMAN PHYSICIAN: REFERRING PHYSICIAN: KITA SKINNER MD DATE OF SERVICE: 05/13/19 Discharge Plan Patient Name: ANDI BRODY [facility] [facility] 1935 Planned Disposition: Assisted Living Anticipated Discharge Date: Discharge Date: Expected LOS: Initial Reviewer: [email or web address] Initial Review Date: 05/13/2019 Generated: 05/13/19 3:11 pm Patient Name: ANDI BRODY Page 22630 at 1411 All edits/amendments must be made on the electronic document DICTATION DATE: 05/13/19 1410 LEGAL ARCHIVIST: JERROD 05/13/19 1410 RPT#: [id number] DC DATE: STATUS: ADM IN [facility] [address] [place] [address] END OF REPORT
--- NOTE | 2019-05-13 14:15 | NUR ---
Rehab Prescreening Consult recieved and the chart has been reviewed. She has a qualifying ARU diagnosis, but is not medically stable at this time for 3 hrs of therapy a day 5-6 days a week. She also has been to the optical laboratory technician today and has orders for PT/OT pending. Rehab will follow her progress. Lizzy Martines RN Clinical Liaison, Rehab
--- NOTE | 2019-05-13 14:19 | MORECARE ---
CASE MANAGEMENT DISCHARGE SUMMARY PATIENT: ANDI BRODY UNIT: [id number] ADM DATE: 05/12/19 AGE: 84 : 33 SEX: F ROOM/BED: D.211 AUTHOR: HANSA GUAMAN PHYSICIAN: REFERRING PHYSICIAN: KITA SKINNER MD DATE OF SERVICE: 05/13/19 Discharge Plan Patient Name: ANDI BRODY Facility: [facility]:[place] : 1935 Planned Disposition: Assisted Living Anticipated Discharge Date: Discharge Date: Expected LOS: Initial Reviewer: [email or web address] Initial Review Date: 05/13/2019 Generated: 05/13/19 3:18 pm DCPIA - Discharge Planning Initial Assessment Updated by [email or web address]: Raul Gonzalez on 05/13/19 2:12 pm * Is the patient Alert and Oriented? Yes * How many steps to enter\exit or inside your home? NONE * PCP DR. BANERJEE * Pharmacy [facility] * Preadmission Environment Memory Care * Other Environment [facility] * Facility Name [facility] * ADLs Partial Dependent * Partial ADLs (Assistance needed) Bathing Medication Management * Equipment Walker * Other Equipment NO MEDICAL EQUIPMENT PROVIDER PREFERENCE * List name and contact numbers for known caregivers / representatives who currently or will assist patient after discharge: Esteban WILDER, DTR/POA, * Verbal permission to speak to the caregivers and representatives has been obtained from the patient. N/A * Community resources currently utilized Home Health * Please name any agencies selected above. [facility] * Additional services required to return to the preadmission environment? No * Can the patient safely return to the preadmission environment? Yes * Has this patient been hospitalized within the prior 30 days at any hospital? No Last DP export: 05/13/19 1:11 pm Patient Name: ANDI BRODY Page 43284 at 1419 All edits/amendments must be made on the electronic document DICTATION DATE: 05/13/19 1418 SEWING MACHINE REPAIRER HELPER: JERROD 05/13/19 1418 RPT#: [id number] [place] DATE: STATUS: ADM IN [facility] [address] [place] [address] END OF REPORT
--- NOTE | 2019-05-13 14:27 | MORECARE ---
CASE MANAGEMENT DISCHARGE SUMMARY PATIENT: ANDI BRODY UNIT: [id number] ADM DATE: 05/12/19 AGE: 84 : 33 SEX: F ROOM/BED: D.9951 AUTHOR: HANSA GUAMAN PHYSICIAN: REFERRING PHYSICIAN: KITA SKINNER MD DATE OF SERVICE: 05/13/19 Discharge Plan Patient Name: ANDI BRODY Facility: [facility]:[place] : 1935 Planned Disposition: Assisted Living Anticipated Discharge Date: Discharge Date: Expected LOS: Initial Reviewer: [email or web address] Initial Review Date: 05/13/2019 Generated: 05/13/19 3:26 pm Comments DCP- Discharge Planning Updated by [email or web address]: Raul Gonzalez on 05/13/19 1:[address] Patient Name: ANDI BRODY Admission Status: ER Accout number: [id number] Admission Date: 05-12-2019 : 1935 Admission Diagnosis: Attending: KITA SKINNER Current LOS: 1 Anticipated DC Date: Planned Disposition: Assisted Living - [facility] Primary Insurance: MEDICARE A & B PLANNED EXTERNAL PROVIDER: [facility] Discharge Planning Comments: CM RECEIVED ORDER FOR INPATIENT REHAB PRESCREENING. CM ATTEMPTED TO MEET WITH PT IN ROOM TO DISCUSS DISCHARGE PLANNING AND NEEDS, PT WAS NOT ABLE TO PROVIDE INFORMATION NEEDED; CM CALLED PT'S LISTED EMERGENCY CONTACT, POWER OF BEAD WRAPPER, PEPE MEÑO, . PT LIVES AT [facility] IN [facility]. PT USES A STANDARD WALKER. PT HAS NOT MEDICAL EQUIPMENT PROVIDER PREFERENCE. PT HAS [facility] FOR TH[facility]AP[facility]. PT HAS [facility] CALLS MISHA PT'S PRIMARY CARE PHYSICIAN. [facility] DECLINED INPATIENT REHAB OR [facility] FACILITY FOR REHAB. [facility]J REPORTS PT WILL RETURN TO THE [facility] SOON POSSIBLE TO FAMILIAR SURROUNDINGS AND ROUTINE. [facility] REPORTS PT IS MENTALLY ILL AND THE LONGER SHE IS AWAY FROM WHAT IS FAMILIAR IS BAD FOR HER MOTHER. [facility] WOULD LIKE [facility] AND ALSO WANTS PT TESTED FOR HOME AND PORTABLE OXYGEN. IF PT QUALIFIES, [facility] HAS NO PREFERENCE ON MEDICAL EQUIPMENT PROVIDER. CHOICE COMPLETED FOR [facility] AND NO PROVIDER PREFERENCE FOR MEDICAL EQUIPMENT PROVIDER. CM NOTIFIED GERRY CAST. CM CALLED [facility], , [facility]KE TO [facility], NOTIFIED OF ABOVE INFORMATION. FOR DISCHARGE, NURSE REPORT TO BE CALLED TO THE [facility] AT [phone], REQUEST TRANSPORT WHEN NURSE REPORT IS CALLED; FAX DISCHARGE MEDICATION LIST AND INSTRUTIONS TO THE [facility] AT [phone]. NOTIFY [facility] AT [phone], FAX DISCHARGE INFORMATION TO [facility] AT [phone]. Wet Pan Operator: Raul Gonzalez DCPIA - Discharge Planning Initial Assessment Updated by STACEY: Raul Gonzalez on 05/13/19 2:12 pm * Is the patient Alert and Oriented? Yes * How many steps to enter\exit or inside your home? NONE * PCP DR. BANERJEE * Pharmacy [facility] * Preadmission Environment Memory Care * Other Environment [facility] * Facility Name [facility] * ADLs Partial Dependent * Partial ADLs (Assistance needed) Bathing Medication Management * Equipment Walker * Other Equipment NO MEDICAL EQUIPMENT PROVIDER PREFERENCE * List name and contact numbers for known caregivers / representatives who currently or will assist patient after discharge: Esteban WILDER, DTR/POA, * Verbal permission to speak to the caregivers and representatives has been obtained from the patient. N/A * Community resources currently utilized Home Health * Please name any agencies selected above. [facility] * Additional services required to return to the preadmission environment? No * Can the patient safely return to the preadmission environment? Yes * Has this patient been hospitalized within the prior 30 days at any hospital? No Coverage Notice Reviewer: [email or web address] - Raul Gonzalez Notice Issued Date-Time: 05/13/2019 12:40 Notice Type: Patient Choice Letter Notice Delivered To: Family Member Relationship to Patient: Daughter Bander And Cellophaner Machine Name: PEPE WILDER Delivery Method: PHONE - Phone Thea Days: Prior Verbal Notification: Recipient Understood Notice: Yes Recipient Signature: Yes Med Rec Note Co-signed by Attending: Coverage Notice Comment: [facility], NO MEDICAL EQUIPMENT PROVIDER PREFERENCE. Last DP export: 05/13/19 1:19 pm Patient Name: ANDI BRODY Page 15971 at 8017 All edits/amendments must be made on the electronic document DICTATION DATE: 05/13/191425 COLOR CORRECTOR: JERROD 05/13/191425 RPT#: [id number] DC DATE: STATUS: ADM IN [facility] [address] [place] [address] END OF REPORT
[2019-05-13 14:39] VITALS: Ht 162.6 cm; Wt 66.1 kg
--- NOTE | 2019-05-13 14:49 | NUR ---
PRE OP MEDS GIVEN. READY FOR CATH
--- NOTE | 2019-05-13 17:14 | NUR ---
UP TO BATH ROOM WITH HELP. RIGHT WRIST CATH SITE WITH DRSG DRY AND INTACT. CALL LIGHT IN REACH WITH SR UP
--- NOTE | 2019-05-13 19:52 | NUR ---
RECIEVED LAYING IN BED WITH EYES CLOSED. EASILY AROUSES TO VERBAL STIMULI. DSG TO RIGHT RADIAL CDI. NO BRUISING OR SWELLING OBSERVED. TELEMETRY IN PLACE. BED ALARM IN PLACE. NO S/S OF DISTRESS OBSERVED. DOES STATE " I'M TIRED". WILL CONT POC.
[2019-05-13 20:00] VITALS: BP 116/55
[2019-05-14] VITALS: BP 141/64
[2019-05-14 04:00] VITALS: BP 118/50
--- NOTE | 2019-05-14 05:10 | NUR ---
HR 130-[address] JO WITH NEW ORDER FOR CARDIEM 60MG TID.
[2019-05-14 05:57] LABS: ALBUMIN 2.9 g/dL (3.4-5.0); ANION GAP 10.1 mmol/L (8-16); BILIRUBIN - TOTAL 0.4 mg/dL (0.2-1.3); CALCIUM 8.6 mg/dL (8.5-10.1); CARBON DIOXIDE 30.1 mmol/L (21.0-32.0); CREATININE - SERUM 1.1 mg/dL (0.6-1.3); MAGNESIUM - SERUM 1.3 mg/dL (1.8-2.4); POTASSIUM - SERUM 4.2 mmol/L (3.5-5.1); PROTEIN - SERUM 6.5 g/dL (6.4-8.2)
[2019-05-14 06:45] LABS: BASOPHILS 0.3 % (0-2); EOSINOPHILS 8.8 % (0-7); HEMATOCRIT 34.7 % (36.0-48.0); HEMOGLOBIN 11.1 g/dL (12-16); IMMATURE GRANULOCYTES 0.3 % (0-5); LYMPHOCYTES 25.5 % (15-50); MCH 29.2 pg (26.0-34.0); MCV 91.3 fL (80.0-100.0); MEAN PLATELET VOLUME 11.4 fL (7.4-10.4); NEUTROPHILS 53.1 % (40-80); PLATELET COUNT 204 10x3/uL (130-400); RDW 13.9 % (11.5-14.5)
[2019-05-14 07:01] LABS: WBC 6.8 10x3/uL (4.8-10.8)
--- NOTE | 2019-05-14 07:36 | NUR ---
ASSESSMENT COMPLETED. ALERT BUT CONFUSED AT TIMES. BEDALARM ON. LEFT AC SL.RIGHT RADIAL WRIST CATH SIDE WITH DRSG DRY AND INTACT.TELEMETRY SHOWS SR 74. DENIES ANY NEEDS
[2019-05-14 09:02] VITALS: BP 115/67
--- NOTE | 2019-05-14 09:53 | EC ---
PATIENT:ANDI BRODY DATE OF SERVICE: 05/13/19 SEX: F MEDICAL RECORD: [id number] DATE OF : 31 LOCATION:D.M2 D.211 AGE OF PATIENT: 84 ADMISSION DATE: 05/13/19 REFERRING PHYSICIAN: INTERPRETING PHYSICIAN: HARIS JASSO MD ECHOCARDIOGRAM REPORT ECHO CHARGES 5 ECHO LIMITED Date: 05/13/19 CLINICAL DIAGNOSIS: DYSPNEA ECHOCARDIOGRAPHIC MEASUREMENTS (adult normal given) AC root (d.<3.7cm) 0 cm LV Septum d (<1.2 cm> 0 cm Valve Excursion 0 cm LV Septum (systole) 0 cm Left Atria (s.<4.0cm> 0 cm LVPW d(<1.2cm) 0 cm RV (d.<2.3cm) 0 cm LVPW (sytole) 0 cm LV diastole(<5.6CM) 0 cm MV E-F(>70mm/sec) 0 cm LV systole 0 cm LVOT Diameter 0 cm MV exc.(>10mm) 0 cm Est.ejection fraction (50-75%) 0 % DOPPLER: LVIT cm/sec A 0 cm/sec E 0 cm/sec LA 0 cm/sec RVSP 34.2 mmHg LVOT 0 cm/sec AOP1/2T m/s Asc. Ao 0 cm/sec RVOT 0 cm/sec RA 0 cm/sec PA 0 cm/sec AV Gradient Peak 0 mmHg AV Mean 0 mmHg AV Area 0 cm MV Gradient Peak 0 mmHg MV Mean 0 mmHg MV Area 0 cm COMMENTS: 0 0 0 Registered Representative: April BRODY Hooker Off: 1 Dr. Jasso TAPE# PACS Pericardial Effusion N DATE OF SERVICE: 05/13/2019 FINDINGS: 1. Left ventricular chamber size is within normal limits. Left ventricular systolic function is normal. Overall ejection fraction estimated at 55%. 2. Left atrium, right atrium, and right ventricular chamber sizes are within normal limits. 3. Valvular structures have normal structure and motion. 4. Doppler interrogation reveals only mild mitral regurgitation, no other ECHOCARDIOGRAM REPORT [id number] ANDI BROYD valvular insufficiency or stenosis. Pulmonary systolic pressure is estimated at 34 mmHg. 5. No evidence of pericardial effusion or left ventricular thrombus. TRANSINT:[id number] Voice Confirmation ID: [id number] DOCUMENT ID: [id number] HARIS JASSO MD at 0953 CC: [id number] DICTATION DATE: 05/13/19 1706 ASSISTANT PROFESSOR OF LIFE SCIENCES: 05/13/19 1845 ADM IN [facility] [address] [id number]
--- NOTE | 2019-05-14 09:53 | CN ---
PATIENT NAME:ANDI BRODY MEDICAL RECORD: [id number] : 31 LOCATION:D. D.2119 ADMIT DATE: 05/13/19 ACCOUNT: [id number] CONSULTING PHYSICIAN: HARIS MONTEMAYOR MD REFERRING PHYSICIAN: KITA SKINNER MD DATE OF CONSULTATION: 05/12/2019 DIAGNOSES: 1. Non-Q-wave myocardial infarction. 2. Coronary artery disease. 3. Abnormal ECG, lateral ischemia. 4. Paroxysmal atrial fibrillation. 5. Chronic obstructive pulmonary disease. 6. Smoking history. 7. Hyperlipidemia. 8. Hypertension. HISTORY OF PRESENT ILLNESS: Ms. Brody has no history of ischemic heart disease that we know of and that she knows of presents with chest pain radiating to her back, found to be in atrial fibrillation with rapid ventricular response. She was given a dose of Cardizem 20 mg bolus, with this she converted to sinus rhythm. Her chest pain resolved. She had hypotension. The Cardizem drip was stopped going to the floor. She had recurrent episodes of atrial fibrillation, recurrent episode of chest pain radiating to the back. Heart rates in the 130s-140s range. She has a history of hypertension, for which she is on metoprolol 50 mg b.i.d. Hyperlipidemia and COPD, smoking as well but no history of ischemic heart disease. PHYSICAL EXAMINATION: GENERAL APPEARANCE: Well nourished, well developed, appears stated age. Level of distress, comfortable. PSYCHIATRIC: Mental status, alert, normal affect. Orientation, oriented to time, place and person. EYES: Lids and conjunctiva, noninjected. No discharge, no pallor. ENT: Lips, teeth, gums, normal dentition. Oropharynx, no cyanosis, no pallor. NECK: Carotid arteries, bilateral normal upstroke, no bruits, no thrills. JUGULAR VEINS: No jugular venous pressure or distention. CERVICAL LYMPH NODES: Nontender, nonenlarged. THYROID: Not enlarged. Nontender. No nodules. LUNGS: Respiratory effort, unlabored. CHEST: Normal curvature. No thoracic deformity. No chest wall tenderness. Percussion, resonant. Auscultation, clear. No wheezes, no rales, no rhonchi. CARDIOVASCULAR: Precordial exam, nondisplaced. No heaves or pericardial thrills. Rate and rhythm, regular. Heart sounds, normal S1, normal S2. No S3, no gallop, no rub. Systolic murmur, not heard. Diastolic murmur, not heard. EXTREMITIES: No cyanosis, no edema. Peripheral pulses, full and equal in all extremities, except as noted. No bruits appreciated. ABDOMEN: Soft, nondistended. Normal aorta. No bruit. Nontender. No masses. Liver, nontender, no hepatomegaly. Spleen, nontender, no splenomegaly. MUSCULOSKELETAL: No joint tenderness. No joint swelling. No erythema. NEUROLOGICAL: Normal gait, normal strength, normal tone. SKIN: Warm and dry. IMPRESSION: Atrial fibrillation with rapid ventricular response with ischemic EKG changes. Positive troponin with a non-Q-wave myocardial infarction. At CONSULT REPORT [id number] ANDI BRODY this time, we will try to limit the episodes of atrial fibrillation. We will start her on sotalol 80 mg b.i.d. With the Cardizem, she had hypotension, hence we will try half dose of the Cardizem. We will give 10 mg bolus of drip at 5 mg an hour. Hopefully, this will convert her to sinus rhythm as Cardizem did earlier but not give hypotension, especially in conjunction with the sotalol. Martin will be to keep her heart rate under control, consider coronary angiography depending upon ongoing symptomatology and ongoing rhythm problems. TRANSINT:[id number] Voice Confirmation ID: [id number] DOCUMENT ID: [id number] HARIS MONTEMAYOR MD at 0953 CC: [id number] DICTATION DATE: 05/12/19 2344 TICKET SPECULATOR: 05/13/19 0050 ADM IN [place] [address] [place] [address]
[2019-05-14 13:07] VITALS: BP 108/51
--- NOTE | 2019-05-14 15:54 | NUR ---
OT NOTE: PT COMPLETED BED MOB TASKS SUPINE TO SIT WITH MIN A. PT COMPLETED ADL MOB WITH CGA. PT COMPLETED TOILETING TASKS WITH MIN/MOD A FOR HYGIENE. PT COMPLETED FACE WASH WITH SET UP. THANK YOU, MALKA BARBOSA
--- NOTE | 2019-05-14 17:12 | NUR ---
20 G X 1 STICK TO LEFT FA PER THIS NURSE.
--- NOTE | 2019-05-14 17:40 | NUR ---
UP TO BATH ROOM WITH HELP. IV STARTED IN LEFT FA. READY FOR CTA. WILL MONITOR
--- NOTE | 2019-05-14 17:52 | NUR ---
PATIENT TO REFUSE WEARING BILATERAL SCD'S.
[2019-05-14 20:00] VITALS: BP 123/54
--- NOTE | 2019-05-14 20:01 | NUR ---
RECIEVED LAYING IN BED WITH HOB ELEVATED. ALERT AND CONFUSED. IV TO LEFT AC SL AND IV TO RIGHT FA SL. WENT FOR CT SCAN AND BACK IN ROOM AT THIS TIME AMBULATES WITH ASSIST. TELEMETRY IN PLACE. DENIES ANY NEEDS AT THIS TIME.
--- NOTE | 2019-05-14 22:27 | NUR ---
RESTING IN BED WITH EYES CLOSED. NO S/S OF DISTRESS OBSERVED. XALL LIGHT IN REACH.
--- NOTE | 2019-05-14 22:28 | NUR ---
BED ALAM IN PLACE AND FUNCTIONING PROPERLY.
[2019-05-15 01:05] VITALS: BP 105/47
--- NOTE | 2019-05-15 05:33 | NUR ---
EASILY AROUSES THIS AM. PLEASANT AND COOPERATIVE. TAKES MEDICATION WITHOUT DIFFICULTY. HAD A GOOD NIGHT AND SLEPT ALL NIGHT.
[2019-05-15 05:36] VITALS: BP 121/57
[2019-05-15 06:35] LABS: BASOPHILS 0.3 % (0-2); EOSINOPHILS 9.7 % (0-7); HEMATOCRIT 35.3 % (36.0-48.0); HEMOGLOBIN 11.4 g/dL (12-16); IMMATURE GRANULOCYTES 0.3 % (0-5); LYMPHOCYTES 24.1 % (15-50); MCH 29.1 pg (26.0-34.0); MCHC 32.3 g/dL (31.0-37.0); MCV 90.1 fL (80.0-100.0); MEAN PLATELET VOLUME 11.2 fL (7.4-10.4); MONOCYTES 9.5 % (2-11); NEUTROPHILS 56.1 % (40-80); PLATELET COUNT 196 10x3/uL (130-400); RBC 3.92 10x6/uL (4.00-5.40); RDW 13.6 % (11.5-14.5); WBC 7.4 10x3/uL (4.8-10.8)
[2019-05-15 07:06] LABS: ANION GAP 12.6 mmol/L (8-16); BILIRUBIN - TOTAL 0.55 mg/dL (0.2-1.3); CALCIUM 8.8 mg/dL (8.5-10.1); CARBON DIOXIDE 28.5 mmol/L (21.0-32.0); CREATININE - SERUM 1.2 mg/dL (0.6-1.3); MAGNESIUM - SERUM 1.1 mg/dL (1.8-2.4); POTASSIUM - SERUM 4.1 mmol/L (3.5-5.1); PROTEIN - SERUM 6.8 g/dL (6.4-8.2)
--- NOTE | 2019-05-15 07:08 | MORECARE ---
CASE MANAGEMENT DISCHARGE SUMMARY PATIENT: ANDI BRODY UNIT: [id number] ADM DATE: 05/13/19 AGE: 84 : 33 SEX: F ROOM/BED: D.1581 AUTHOR: HANSA GUAMAN PHYSICIAN: REFERRING PHYSICIAN: KITA SKINNER MD DATE OF SERVICE: 05/15/19 Discharge Plan Patient Name: ANDI BRODY Facility: [facility]:[place] : 1935 Planned Disposition: Assisted Living Anticipated Discharge Date: 05/15/19 Discharge Date: Expected LOS: 2 Initial Reviewer: [email or web address] Initial Review Date: 05/13/2019 Generated: 05/15/19 8:08 am DCP- Discharge Planning Updated by [email or web address]: Raul Gonzalez on 05/13/19 1:[address] Patient Name: ANDI BRODY Admission Status: ER Accout number: [id number] Admission Date: 05-12-2019 : 1935 Admission Diagnosis: Attending: KITA SKINNER Current LOS: 1 Anticipated DC Date: Planned Disposition: [facility] Primary Insurance: MEDICARE A & B PLANNED EXTERNAL PROVIDER: [facility] Discharge Planning Comments: CM RECEIVED ORDER FOR INPATIENT REHAB PRESCREENING. CM ATTEMPTED TO MEET WITH PT IN ROOM TO DISCUSS DISCHARGE PLANNING AND NEEDS, PT WAS NOT ABLE TO PROVIDE INFORMATION NEEDED; CM CALLED PT'S LISTED EMERGENCY CONTACT, POWER OF ATTACHER, PEPE MEÑO, . PT LIVES AT [facility] IN [facility]. PT USES A STANDARD WALKER. PT HAS NOT MEDICAL EQUIPMENT PROVIDER PREFERENCE. PT HAS [facility] FOR THERAPY SERVICES. PT HAS [facility] CALLS MISHA PT'S PRIMARY CARE PHYSICIAN. [facility] DECLINED INPATIENT REHAB OR SENIOR LIVING FACILITY FOR REHAB. PJ REPORTS PT WILL RETURN TO THE [facility] SOON POSSIBLE TO FAMILIAR SURROUNDINGS AND ROUTINE. PJ REPORTS PT IS MENTALLY ILL AND THE LONGER SHE IS AWAY FROM WHAT IS FAMILIAR IS BAD FOR HER MOTHER. [facility] WOULD LIKE [facility] AND ALSO WANTS PT TESTED FOR HOME AND PORTABLE OXYGEN. IF PT QUALIFIES, PJ HAS NO PREFERENCE ON MEDICAL EQUIPMENT PROVIDER. CHOICE COMPLETED FOR [facility] AND NO PROVIDER PREFERENCE FOR MEDICAL EQUIPMENT PROVIDER. CM NOTIFIED GERRY CAST. CM CALLED [facility], , SPOKE TO [facility], NOTIFIED OF ABOVE INFORMATION. FOR DISCHARGE, NURSE REPORT TO BE CALLED TO THE [facility] AT [phone], REQUEST TRANSPORT WHEN NURSE REPORT IS CALLED; FAX DISCHARGE MEDICATION LIST AND INSTRUTIONS TO THE [facility] AT [phone]. NOTIFY [facility] AT [phone], FAX DISCHARGE INFORMATION TO [facility] AT [phone]. Sweeper Operator Highways: Raul Gonzalez DCPIA - Discharge Planning Initial Assessment Updated by [id number]: Raul Gonzalez on 05/13/19 2:12 pm * Is the patient Alert and Oriented? Yes * How many steps to enter\exit or inside your home? NONE * PCP DR. BANERJEE * Pharmacy [facility] * Preadmission Environment [facility] * Other Environment [facility] * Facility Name [facility] * ADLs Partial Dependent * Partial ADLs (Assistance needed) Bathing Medication Management * Equipment Walker * Other Equipment NO MEDICAL EQUIPMENT PROVIDER PREFERENCE * List name and contact numbers for known caregivers / representatives who currently or will assist patient after discharge: Esteban WILDER, DTR/POA, * Verbal permission to speak to the caregivers and representatives has been obtained from the patient. N/A * Community resources currently utilized Home Health * Please name any agencies selected above. [facility] * Additional services required to return to the preadmission environment? No * Can the patient safely return to the preadmission environment? Yes * Has this patient been hospitalized within the prior 30 days at any hospital? No External Providers [facility] Next Contact Date: 05/15/2019 Service Request Date: Service Type: Resolution: Reviewer: Comments: Coverage Notice Reviewer: [id number] - Raul Gonzalez Notice Issued Date-Time: 05/13/2019 12:40 Notice Type: Patient Choice Letter Notice Delivered To: Family Member Relationship to Patient: Daughter Senior Energy Market Coordinator Name: PEPE WILDER Delivery Method: PHONE - Phone Thea Days: Prior Verbal Notification: Recipient Understood Notice: Yes Recipient Signature: Yes Med Rec Note Co-signed by Attending: Coverage Notice Comment: [facility], NO MEDICAL EQUIPMENT PROVIDER PREFERENCE. Last DP export: 05/13/19 1:27 pm Patient Name: ANDI BRODY Page [id number] at 0708 All edits/amendments must be made on the electronic document DICTATION DATE: 05/15/19706 PUBLIC MESSAGE SERVICE SUPERVISOR: JERROD 05/15/19706 RPT#: [id number] DC DATE: STATUS: ADM IN [facility] [address] [place] [address] END OF REPORT
--- NOTE | 2019-05-15 07:14 | MORECARE ---
CASE MANAGEMENT DISCHARGE SUMMARY PATIENT: ANDI BRODY UNIT: [id number] ADM DATE: 05/13/19 AGE: 84 : 33 SEX: F ROOM/BED: D.4987 AUTHOR: HANSA GUAMAN PHYSICIAN: REFERRING PHYSICIAN: KITA SKINNER MD DATE OF SERVICE: 05/15/19 Discharge Plan Patient Name: ANDI BRODY Facility: [facility]:[place] : 1935 Planned Disposition: Assisted Living Anticipated Discharge Date: 05/15/19 Discharge Date: Expected LOS: 2 Initial Reviewer: [email or web address] Initial Review Date: 05/13/2019 Generated: 05/15/19 8:14 am DCP- Discharge Planning Updated by [id number]: Raul Gonzalez on 05/13/19 1:[address] Patient Name: ANDI BRODY Admission Status: ER Accout number: [id number] Admission Date: 05-12-2019 : 1935 Admission Diagnosis: Attending: KITA SKINNER Current LOS: 1 Anticipated DC Date: Planned Disposition: [facility] Living [facility] Primary Insurance: MEDICARE A & B PLANNED EXTERNAL PROVIDER: [facility] Discharge Planning Comments: CM RECEIVED ORDER FOR INPATIENT REHAB PRESCREENING. CM ATTEMPTED TO MEET WITH PT IN ROOM TO DISCUSS DISCHARGE PLANNING AND NEEDS, PT WAS NOT ABLE TO PROVIDE INFORMATION NEEDED; CM CALLED PT'S LISTED EMERGENCY CONTACT, POWER OF BOXER OPERATOR, PEPE MEÑO, . PT LIVES AT [facility] IN [facility]. PT USES A STANDARD WALKER. PT HAS NOT MEDICAL EQUIPMENT PROVIDER PREFERENCE. PT HAS [facility] FOR THERAPY SERVICES. PT HAS [facility] CALLS MISHA PT'S PRIMARY CARE PHYSICIAN. PJ DECLINED INPATIENT REHAB OR [facility] FACILITY FOR REHAB. PJ REPORTS PT WILL RETURN TO THE [facility] SOON POSSIBLE TO FAMILIAR SURROUNDINGS AND ROUTINE. PJ REPORTS PT IS MENTALLY ILL AND THE LONGER SHE IS AWAY FROM WHAT IS FAMILIAR IS BAD FOR HER MOTHER. [facility] WOULD LIKE [facility] AND ALSO WANTS PT TESTED FOR HOME AND PORTABLE OXYGEN. IF PT QUALIFIES, PJ HAS NO PREFERENCE ON MEDICAL EQUIPMENT PROVIDER. CHOICE COMPLETED FOR [facility] AND NO PROVIDER PREFERENCE FOR MEDICAL EQUIPMENT PROVIDER. CM NOTIFIED GERRY CAST. CM CALLED [facility], , SPOKE TO [facility], NOTIFIED OF ABOVE INFORMATION. FOR DISCHARGE, NURSE REPORT TO BE CALLED TO THE [facility] AT [phone], REQUEST TRANSPORT WHEN NURSE REPORT IS CALLED; FAX DISCHARGE MEDICATION LIST AND INSTRUTIONS TO THE [facility] AT [phone]. NOTIFY [facility] AT [phone], FAX DISCHARGE INFORMATION TO [facility] AT [phone]. Claim Taker: Raul Gonzalez DCPIA - Discharge Planning Initial Assessment Updated by [email or web address]: Raul Gonzalez on 05/13/19 2:12 pm * Is the patient Alert and Oriented? Yes * How many steps to enter\exit or inside your home? NONE * PCP DR. BANERJEE * Pharmacy [facility] * Preadmission Environment [facility] * Other Environment [facility] * Facility Name [facility] * ADLs Partial Dependent * Partial ADLs (Assistance needed) Bathing Medication Management * Equipment Walker * Other Equipment NO MEDICAL EQUIPMENT PROVIDER PREFERENCE * List name and contact numbers for known caregivers / representatives who currently or will assist patient after discharge: Esteban WILDER, DTR/POA, * Verbal permission to speak to the caregivers and representatives has been obtained from the patient. N/A * Community resources currently utilized Home Health * Please name any agencies selected above. [facility] * Additional services required to return to the preadmission environment? No * Can the patient safely return to the preadmission environment? Yes * Has this patient been hospitalized within the prior 30 days at any hospital? No External Providers External Provider: [facility] Next Contact Date: 05/15/2019 Service Request Date: Service Type: Resolution: Reviewer: Comments: Coverage Notice Reviewer: [id number] - Raul Gonzalez Notice Issued Date-Time: 05/13/2019 12:40 Notice Type: Patient Choice Letter Notice Delivered To: Family Member Relationship to Patient: Daughter Master Ship Name: PEPE WILDER Delivery Method: PHONE - Phone Thea Days: Prior Verbal Notification: Recipient Understood Notice: Yes Recipient Signature: Yes Med Rec Note Co-signed by Attending: Coverage Notice Comment: [facility], NO MEDICAL EQUIPMENT PROVIDER PREFERENCE. Last DP export: 05/15/19 6:08 am Patient Name: ANDI RBODY Page [id number] at 0714 All edits/amendments must be made on the electronic document DICTATION DATE: 05/15/19713 SALES SUPPORT CONSULTANT: JERROD 05/15/19713 RPT#: [id number] DC DATE: STATUS: ADM IN [facility] [address] [place] [address] END OF REPORT
--- NOTE | 2019-05-15 07:22 | MORECARE ---
CASE MANAGEMENT DISCHARGE SUMMARY PATIENT: ANDI BRODY UNIT: [id number] ADM DATE: 05/13/19 AGE: 84 : 33 SEX: F ROOM/BED: D.2719 AUTHOR: HANSA GUAMAN PHYSICIAN: REFERRING PHYSICIAN: KITA SKINNER MD DATE OF SERVICE: 05/15/19 Discharge Plan Patient Name: ANDI BRODY Facility: [facility]:[place] : 1935 Planned Disposition: Assisted Living Anticipated Discharge Date: 05/15/19 Discharge Date: Expected LOS: 2 Initial Reviewer: [email or web address] Initial Review Date: 05/13/2019 Generated: 05/15/19 8:21 am Comments DCP- Discharge Planning Updated by [email or web address]: Raul Gonzalez on 05/15/19 6:[address] Patient Name: ANDI BRODY Encounter No: [id number] : 1935 Primary Insurance: MEDICARE A & B Anticipated DC Date: 05-15-2019 Planned Disposition: Assisted Living External Planned Provider: [facility] Discharge Planning Comments: CM FAXED HOSPITAL UPDATE TO THE [facility], ; CM FAXED HOSPITAL UPDATE TO THE [facility] AT [phone]. FOR DISCHARGE, NURSE REPORT TO BE CALLED TO THE [facility] AT [phone], REQUEST TRANSPORT WHEN NURSE REPORT IS CALLED; FAX DISCHARGE MEDICATION LIST AND INSTRUTIONS TO THE [facility] AT [phone]. NOTIFY THE [facility] AT [phone], FAX DISCHARGE INFORMATION TO THE [facility] AT [phone]. Organic Extractions Technician: Raul Gonzalez DCP- Discharge Planning Updated by [email or web address]: Raul Gonzalez on 05/13/19 1:[address] Patient Name: ANDI BRODY Admission Status: ER Accout number: [id number] Admission Date: 05-12-2019 : 1935 Admission Diagnosis: Attending: KITA SKINNER Current LOS: 1 Anticipated DC Date: Planned Disposition: Assisted Living - [facility] Primary Insurance: MEDICARE A & B PLANNED EXTERNAL PROVIDER: [facility] Discharge Planning Comments: CM RECEIVED ORDER FOR INPATIENT REHAB PRESCREENING. CM ATTEMPTED TO MEET WITH PT IN ROOM TO DISCUSS DISCHARGE PLANNING AND NEEDS, PT WAS NOT ABLE TO PROVIDE INFORMATION NEEDED; CM CALLED PT'S LISTED EMERGENCY CONTACT, POWER OF STEEL PAN FORM PLACING SUPERVISOR, PEPE MEÑO, . PT LIVES AT [facility] IN [facility]. PT USES A STANDARD WALKER. PT HAS NOT MEDICAL EQUIPMENT PROVIDER PREFERENCE. PT HAS [facility] FOR TH[facility]. [facility] PT'S PRIMARY CARE PHYSICIAN. [facility]J DECLINED INPATIENT REHAB OR HALFW[facility] FACILITY FOR REHAB. PJ REPORTS PT WILL RETURN TO THE [facility] SOON POSSIBLE TO FAMILIAR SURROUNDINGS AND ROUTINE. PEPE REPORTS PT IS MENTALLY ILL AND THE LONGER SHE IS AWAY FROM WHAT IS FAMILIAR IS BAD FOR HER MOTHER. PEPE WOULD LIKE [facility] AND ALSO WANTS PT TESTED FOR HOME AND PORTABLE OXYGEN. IF PT QUALIFIES, PJ HAS NO PREFERENCE ON MEDICAL EQUIPMENT PROVIDER. CHOICE COMPLETED FOR [facility] AND NO PROVIDER PREFERENCE FOR MEDICAL EQUIPMENT PROVIDER. CM NOTIFIED GERRY CAST. CM CALLED THE [facility], , SPOKE TO [facility], NOTIFIED OF ABOVE INFORMATION. FOR DISCHARGE, NURSE REPORT TO BE CALLED TO THE [facility] AT [phone], REQUEST TRANSPORT WHEN NURSE REPORT IS CALLED; FAX DISCHARGE MEDICATION LIST AND INSTRUTIONS TO THE [facility] AT [phone]. NOTIFY THE [facility] AT [phone], FAX DISCHARGE INFORMATION TO THE [facility] AT [phone]. Organic Extractions Technician: Raul Gonzalez DCA - Discharge Planning Initial Assessment Updated by [id number]: Raul Gonzalez on 05/13/19 2:12 pm * Is the patient Alert and Oriented? Yes * How many steps to enter\exit or inside your home? NONE * PCP DR. BANERJEE * Pharmacy [facility] * Preadmission Environment [facility] * Other Environment [facility] * Facility Name [facility] * ADLs Partial Dependent * Partial ADLs (Assistance needed) Bathing Medication Management * Equipment Walker * Other Equipment NO MEDICAL EQUIPMENT PROVIDER PREFERENCE * List name and contact numbers for known caregivers / representatives who currently or will assist patient after discharge: Esteban WILDER, XIAO/PRISCILLA, * Verbal permission to speak to the caregivers and representatives has been obtained from the patient. N/A * Community resources currently utilized Home Health * Please name any agencies selected above. [facility] * Additional services required to return to the preadmission environment? No * Can the patient safely return to the preadmission environment? Yes * Has this patient been hospitalized within the prior 30 days at any hospital? No Coverage Notice Reviewer: [email or web address] Starla Gonzalez Notice Issued Date-Time: 05/13/2019 12:40 Notice Type: Patient Choice Letter Notice Delivered To: Family Member Relationship to Patient: Daughter Case Finishing Machine Adjuster Name: PEPE WILDER Delivery Method: PHONE - Phone Thea Days: Prior Verbal Notification: Recipient Understood Notice: Yes Recipient Signature: Yes Med Rec Note Co-signed by Attending: Coverage Notice Comment: [facility], NO MEDICAL EQUIPMENT PROVIDER PREFERENCE. Last DP export: 05/15/19 6:14 am Patient Name: ANDI BRODY Page 00588 at 0722 All edits/amendments must be made on the electronic document DICTATION DATE: 05/15/19720 SLAB INSPECTOR: JERROD 05/15/19720 RPT#: [id number] DC DATE: STATUS: ADM IN [facility] [address] [place] [address] END OF REPORT
--- NOTE | 2019-05-15 07:33 | NUR ---
ASSESSMENT DONE. DENIES NEEDS.
[2019-05-15 08:00] VITALS: BP 147/61
--- NOTE | 2019-05-15 09:35 | NUR ---
TESTED PT FOR HOME 02, O2 WAS OFF PT WHEN I ENTERED THE ROOM, PT 02 SATURATION 85%. PLACED PT ON 2L NASAL CANNULA, O2 SATURATION CAME UP TO 95%.
--- NOTE | 2019-05-15 09:56 | NUR ---
I have reviewed this patient and I concur with the Shift Assessment completed by the Licensed Practical Nurse today this shift.
--- NOTE | 2019-05-15 11:29 | NUR ---
OT NOTE: BED MOB WITH MIN ASSIST; TRANSFERS FROM BED TO CHAIR WITH MIN ASSIST; SET UP WASH BASIN AND PT ABLE TO WASH FACE, HANDS, UPPER BODY, AND CHEST WITH SET UP AND VERBAL CUES. MOD ASSIST WITH LES; MOD/MAX WITH PERINEAL AREA. SET UP BREAKFAST TRAY AND PT ABLE TO FEED SELF WITH SET UP.. FREQ CUES FOR REDIRECTION AND ATTN TO TASK REQUIRED. ROWAN LUNA, O TR/L
[2019-05-15 11:37] VITALS: BP 93/45
--- NOTE | 2019-05-15 12:22 | MORECARE ---
CASE MANAGEMENT DISCHARGE SUMMARY PATIENT: ANDI BRODY UNIT: [id number] ADM DATE: 05/13/19 AGE: 84 : 33 SEX: F ROOM/BED: D.6729 AUTHOR: HANSA GUAMAN PHYSICIAN: REFERRING PHYSICIAN: KITA SKINNER MD DATE OF SERVICE: 05/15/19 Discharge Plan Patient Name: ANDI BRODY Facility: [facility]:[place] : 1935 Planned Disposition: Assisted Living Anticipated Discharge Date: 05/15/19 Discharge Date: Expected LOS: 2 Initial Reviewer: [id number] Initial Review Date: 05/13/2019 Generated: 05/15/19 1:21 pm Comments DCP- Discharge Planning Updated by [id number]: Raul Gonzalez on 05/15/19 6:[address] Patient Name: ANDI BRODY Encounter No: [id number] : 1935 Primary Insurance: MEDICARE A & B Anticipated DC Date: 05-15-2019 Planned Disposition: Assisted Living External Planned Provider: [facility] Discharge Planning Comments: CM FAXED HOSPITAL UPDATE TO THE [facility], ; CM FAXED HOSPITAL UPDATE TO [facility] AT [phone]. FOR DISCHARGE, [facility] [phone], REQUEST TRANSPORT WHEN NURSE REPORT IS CALLED; FAX DISCHARGE MEDICATION LIST AND INSTRUTIONS TO THE [facility] AT [phone]. NOTIFY [facility] AT [phone], FAX DISCHARGE INFORMATION TO [facility] AT [phone]. Gas Dispatcher: Raul Gonzalez DCP- Discharge Planning Updated by [id number]: Raul Gonzalez on 05/13/19 1:[address] Patient Name: ANDI BRODY Admission Status: ER Accout number: [id number] Admission Date: 05-12-2019 : 1935 Admission Diagnosis: Attending: KITA SKINNER Current LOS: 1 Anticipated DC Date: Planned Disposition: Assisted Living - [facility] Primary Insurance: MEDICARE A & B PLANNED EXTERNAL PROVIDER: [facility] Discharge Planning Comments: CM RECEIVED ORDER FOR INPATIENT REHAB PRESCREENING. CM ATTEMPTED TO MEET WITH PT IN ROOM TO DISCUSS DISCHARGE PLANNING AND NEEDS, PT WAS NOT ABLE TO PROVIDE INFORMATION NEEDED; CM CALLED PT'S LISTED EMERGENCY CONTACT, POWER OF PLUMBERS AND TOP HELPERS, PEPE MEÑO, . PT LIVES AT [facility]. PT USES A STANDARD WALKER. PT HAS NOT MEDICAL EQUIPMENT PROVIDER PREFERENCE. PT HAS [facility] FOR [facility]. [facility]'S PRIMARY CARE PHYSICIAN. [facility] DECLINED INPATIENT REHAB OR [facility] FOR REHAB. [facility] REPORTS PT WILL RETURN TO THE [facility] SOON POSSIBLE TO FAMILIAR SURROUNDINGS AND ROUTINE. PEPE REPORTS PT IS MENTALLY ILL AND THE LONGER SHE IS AWAY FROM WHAT IS FAMILIAR IS BAD FOR HER MOTHER. PEPE WOULD LIKE [facility] AND ALSO WANTS PT TESTED FOR HOME AND PORTABLE OXYGEN. IF PT QUALIFIES, [facility] HAS NO PREFERENCE ON MEDICAL EQUIPMENT PROVIDER. CHOICE COMPLETED FOR [facility] AND NO PROVIDER PREFERENCE FOR MEDICAL EQUIPMENT PROVIDER. CM NOTIFIED GERRY CAST. CM CALLED THE [facility], , SPOKE TO [facility], NOTIFIED OF ABOVE INFORMATION. FOR DISCHARGE, NURSE RE[facility] AT [phone], REQUEST TRANSPORT WHEN NURSE REPORT IS CALLED; FAX DISCHARGE MEDICATION LIST AND INSTRUTIONS TO THE [facility] AT [phone]. NOTIFY [facility] AT [phone], FAX DISCHARGE INFORMATION TO [facility] AT [phone]. Gas Dispatcher: Raul Gonzalez DCA - Discharge Planning Initial Assessment Updated by [id number]: Raul Gonzalez on 05/13/19 2:12 pm * Is the patient Alert and Oriented? Yes * How many steps to enter\exit or inside your home? NONE * PCP DR. BANERJEE * [facility] * Preadmission Environment [facility] * Other Environment [facility] * Facility Name [facility] * ADLs Partial Dependent * Partial ADLs (Assistance needed) Bathing Medication Management * Equipment Walker * Other Equipment NO MEDICAL EQUIPMENT PROVIDER PREFERENCE * List name and contact numbers for known caregivers / representatives who currently or will assist patient after discharge: Esteban WILDER, XIAO/PRISCILLA, * Verbal permission to speak to the caregivers and representatives has been obtained from the patient. N/A * Community resources currently utilized Home Health * Please name any agencies selected above. [facility] * Additional services required to return to the preadmission environment? No * Can the patient safely return to the preadmission environment? Yes * Has this patient been hospitalized within the prior 30 days at any hospital? No External Providers External Provider: [id number] Next Contact Date: 05/15/2019 Service Request Date: Service Type: Resolution: Reviewer: Comments: Coverage Notice Reviewer: [id number] Starla oGnzalez Notice Issued Date-Time: 05/13/2019 12:40 Notice Type: Patient Choice Letter Notice Delivered To: Family Member Relationship to Patient: Daughter System Support Administrator Name: PEPE WILDER Delivery Method: PHONE - Phone Thea Days: Prior Verbal Notification: Recipient Understood Notice: Yes Recipient Signature: Yes Med Rec Note Co-signed by Attending: Coverage Notice Comment: [facility], NO MEDICAL EQUIPMENT PROVIDER PREFERENCE. Last DP export: 05/15/19 6:22 am Patient Name: ANDI BRODY Page [phone] at 1222 All edits/amendments must be made on the electronic document DICTATION DATE: 05/15/19 1221 BUSINESS LEADER: JERROD 05/15/19 1221 RPT#: [id number] DC DATE: STATUS: ADM IN [facility] [address] [place] [address] END OF REPORT
--- NOTE | 2019-05-15 12:37 | MORECARE ---
CASE MANAGEMENT DISCHARGE SUMMARY PATIENT: ANDI BRODY UNIT: [id number] ADM DATE: 05/13/19 AGE: 84 : 33 SEX: F ROOM/BED: D.4390 AUTHOR: ROWENA,DOC PHYSICIAN: REFERRING PHYSICIAN: KITA SKINNER MD DATE OF SERVICE: 05/15/19 Discharge Plan Patient Name: ANDI BRODY Facility: [facility]:[place] : 1935 Planned Disposition: Assisted Living Anticipated Discharge Date: 05/15/19 Discharge Date: Expected LOS: 2 Initial Reviewer: [id number] Initial Review Date: 05/13/2019 Generated: 05/15/19 1:36 pm Comments DCP- Discharge Planning Updated by [id number]: Raul Gonzalez on 05/15/19 11:[address] Patient Name: ANDI BRODY Encounter No: [id number] : 1935 Primary Insurance: MEDICARE A & B Anticipated DC Date: 05-15-2019 Planned Disposition: Assisted Living External Planned Provider:[facility] Discharge Planning Comments: CM RECEIVED CALL FROM PT'S LISTED EMERGENCY CONTACT, POWER OF USED CAR MANAGER, PEPE WILDER, . SHE WOULD LIKE PT TO HAVE OXYGEN AND RETURN TO THE [facility] IN [facility]. CM RECEIVED OXYGEN TESTING RESULT, PT QUALIFIES FOR HOME AND PORTABLE OXYGEN. CM CALLED [facility], , SPOKE TO JAE AND PROVIDED REFERRAL INFORMATION. CM FAXED REFERRAL TO [facility], . JAE ADVISED THEY WILL DELIVER PORTABLE OXYGEN TO HOSPITAL TODAY AND WILL ARRANGE HOME OXYGEN WHEN PT ARRIVES AT THE COUNT INCLUDES THE [facility] AFTER DISCHARGE. CM CALLED THE COUNT INCLUDES THE [facility], , SPOKE TO DANE AND LEFT MESSSAGE FROM RAVI OF PT'S PLANNED DC BACK TODAY WITH NEW OXYGEN. CM CALLED [facility], , SPOKE TO JER, NOTIFIED OF PLANNED DISCHARGE TODAY AND NEW OXYGEN FOR HOME HEALTH RESUMPTION. FOR DISCHARGE, NURSE REPORT TO BE CALLED TO [facility] AT [phone], REQUEST TRANSPORT WHEN NURSE REPORT IS CALLED; FAX DISCHARGE MEDICATION LIST AND INSTRUTIONS TO THE [facility] AT [phone]. FAX DISCHARGE INFORMATION TO [facility] AT [phone]. Clerical Aide: Raul Gonzalez DCP- Discharge Planning Updated by [id number]: Raul Gonzalez on 05/15/19 6:[address] Patient Name: ANDI BRODY Encounter No: [id number] : 1935 Primary Insurance: MEDICARE A & B Anticipated DC Date: 05-15-2019 Planned Disposition: Assisted Living External Planned Provider: THE [facility] Discharge Planning Comments: CM FAXED HOSPITAL UPDATE TO THE COUNT INCLUDES THE [facility], ; CM FAXED HOSPITAL UPDATE TO [facility] AT [phone]. FOR DISCHARGE, NURSE REPORT TO BE CALLED TO [facility] AT [phone], REQUEST TRANSPORT WHEN NURSE REPORT IS CALLED; FAX DISCHARGE MEDICATION LIST AND INSTRUTIONS TO THE [facility] AT [phone]. NOTIFY [facility] AT [phone], FAX DISCHARGE INFORMATION TO [facility] AT [phone]. Clerical Aide: Raul Gonzalez DCP- Discharge Planning Updated by [email or web address]: Raul Gonzalez on 05/13/19 1:[address] Patient Name: ANDI BRODY Admission Status: ER Accout number: [id number] Admission Date: 05-12-2019 : 1935 Admission Diagnosis: Attending: KITA SKINNER Current LOS: 1 Anticipated DC Date: Planned Disposition: Assisted Living - [facility] Primary Insurance: MEDICARE A & B PLANNED EXTERNAL PROVIDER: THE [facility]ES THE [facility] Discharge Planning Comments: CM RECEIVED ORDER FOR INPATIENT REHAB PRESCREENING. CM ATTEMPTED TO MEET WITH PT IN ROOM TO DISCUSS DISCHARGE PLANNING AND NEEDS, PT WAS NOT ABLE TO PROVIDE INFORMATION NEEDED; CM CALLED PT'S LISTED EMERGENCY CONTACT, POWER OF USED CAR MANAGER, PEPE WILDER, . PT LIVES AT [facility] IN [facility]. PT USES A STANDARD WALKER. PT HAS NOT MEDICAL EQUIPMENT PROVIDER PREFERENCE. PT HAS [facility] FOR THERAPY SERVICES. PT HAS [facility] CALLS [facility] PT'S PRIMARY CARE PHYSICIAN. [facility] DECLINED INPATIENT REHAB OR HALF-WAY FACILITY FOR REHAB. [facility] REPORTS PT WILL RETURN TO THE [facility] SOON POSSIBLE TO FAMILIAR SURROUNDINGS AND ROUTINE. [facility] REPORTS PT IS MENTALLY ILL AND THE LONGER SHE IS AWAY FROM WHAT IS FAMILIAR IS BAD FOR HER MOTHER. PEPE WOULD LIKE [facility] AND ALSO WANTS PT TESTED FOR HOME AND PORTABLE OXYGEN. IF PT QUALIFIES, [facility] HAS NO PREFERENCE ON MEDICAL EQUIPMENT PROVIDER. CHOICE COMPLETED FOR [facility] AND NO PROVIDER PREFERENCE FOR MEDICAL EQUIPMENT PROVIDER. CM NOTIFIED GERRY CAST. CM CALLED THE [facility], , SPOKE TO [facility], NOTIFIED OF ABOVE INFORMATION. FOR DISCHARGE, NURSE REPORT TO BE CALLED TO [facility] AT [phone], REQUEST TRANSPORT WHEN NURSE REPORT IS CALLED; FAX DISCHARGE MEDICATION LIST AND INSTRUTIONS TO THE [facility] AT [phone]. NOTIFY [facility] AT [phone], FAX DISCHARGE INFORMATION TO [facility] AT [phone]. Clerical Aide: Raul Gonzalez DCPIA - Discharge Planning Initial Assessment Updated by [id number]: Raul Gonzalez on 05/13/19 2:12 pm * Is the patient Alert and Oriented? Yes * How many steps to enter\exit or inside your home? NONE * PCP DR. BANERJEE * Pharmacy [facility] * Preadmission Environment [facility] Care * Other Environment [facility] * Facility Name [facility] * ADLs Partial Dependent * Partial ADLs (Assistance needed) Bathing Medication Management * Equipment Walker * Other Equipment NO MEDICAL EQUIPMENT PROVIDER PREFERENCE * List name and contact numbers for known caregivers / representatives who currently or will assist patient after discharge: Esteban WILDER, DTR/POA, * Verbal permission to speak to the caregivers and representatives has been obtained from the patient. N/A * Community resources currently utilized Home Health * Please name any agencies selected above. [facility] * Additional services required to return to the preadmission environment? No * Can the patient safely return to the preadmission environment? Yes * Has this patient been hospitalized within the prior 30 days at any hospital? No Coverage Notice Reviewer: [id number] Starla Gonzalez Notice Issued Date-Time: 05/13/2019 12:40 Notice Type: Patient Choice Letter Notice Delivered To: Family Member Relationship to Patient: Daughter Frame Fixer Name: PEPE WILDER Delivery Method: PHONE - Phone Thea Days: Prior Verbal Notification: Recipient Understood Notice: Yes Recipient Signature: Yes Med Rec Note Co-signed by Attending: Coverage Notice Comment: [facility], NO MEDICAL EQUIPMENT PROVIDER PREFERENCE. Last DP export: 05/15/19 11:22 am Patient Name: ANDI BRODY Page [phone] at 1237 All edits/amendments must be made on the electronic document DICTATION DATE: 05/15/19 1236 ONLINE PROJECT MANAGER: JERROD 05/15/19 1236 RPT#: [id number] DC DATE: STATUS: ADM IN [facility] [address] [place] [address] END OF REPORT
--- NOTE | 2019-05-15 12:51 | MORECARE ---
CASE MANAGEMENT DISCHARGE SUMMARY PATIENT: ANDI BRODY UNIT: [id number] ADM DATE: 05/13/19 AGE: 84 : 33 SEX: F ROOM/BED: D.5149 AUTHOR: ROWENADOC PHYSICIAN: REFERRING PHYSICIAN: KITA SKINNER MD DATE OF SERVICE: 05/15/19 Discharge Plan Patient Name: ANDI BRODY Facility: [facility]:[place] : 1935 Planned Disposition: Assisted Living Anticipated Discharge Date: 05/15/19 Discharge Date: Expected LOS: 2 Initial Reviewer: [id number] Initial Review Date: 05/13/2019 Generated: 05/15/19 1:51 pm Comments DCP- Discharge Planning Updated by [id number]: Raul Gonzalez on 05/15/19 11:[address] Patient Name: ANDI BRODY Encounter No: [id number] : 1935 Primary Insurance: MEDICARE A & B Anticipated DC Date: 05-15-2019 Planned Disposition: Assisted Living External Planned Provider:[facility] Discharge Planning Comments: CM RECEIVED CALL FROM PT'S LISTED EMERGENCY CONTACT, POWER OF PURCHASE PRICE ANALYST, PEPE WILDER, . SHE WOULD LIKE PT TO HAVE OXYGEN AND RETURN TO THE [facility] IN [facility] [place]. CM RECEIVED OXYGEN TESTING RESULT, PT QUALIFIES FOR HOME AND PORTABLE OXYGEN. IMPORTANT MESSAGE FROM MEDICARE LEFT WITH PT IN ROOM, DISCUSSED WITH PEPE WILDER VIA PHONE. CM CALLED [facility], , SPOKE TO JAE AND PROVIDED REFERRAL INFORMATION. CM FAXED REFERRAL TO [facility], . JAE ADVISED THEY WILL DELIVER PORTABLE OXYGEN TO HOSPITAL TODAY AND WILL ARRANGE HOME OXYGEN WHEN PT ARRIVES AT THE [facility] AFTER DISCHARGE. CM CALLED [facility], , SPOKE TO DANE AND LEFT MESSSAGE FROM RAVI OF PT'S PLANNED DC BACK TODAY WITH NEW OXYGEN. CM CALLED [facility], , SPOKE TO JER, NOTIFIED OF PLANNED DISCHARGE TODAY AND NEW OXYGEN FOR HOME HEALTH RESUMPTION. FOR DISCHARGE, NURSE REPORT TO BE CALLED TO THE [facility] AT [phone], REQUEST TRANSPORT WHEN NURSE REPORT IS CALLED; FAX DISCHARGE MEDICATION LIST AND INSTRUTIONS TO THE [facility] AT [phone]. FAX DISCHARGE INFORMATION TO [facility] AT [phone]. High School Social Studies Tutor: Raul Gonzalez DCP- Discharge Planning Updated by [id number]: Raul Gonzalez on 05/15/19 6:[address] Patient Name: ANDI BRODY Encounter No: [id number] : 1935 Primary Insurance: MEDICARE A & B Anticipated DC Date: 05-15-2019 Planned Disposition: Assisted Living External Planned Provider: [facility] Discharge Planning Comments: CM FAXED HOSPITAL UPDATE TO [facility], ; CM FAXED HOSPITAL UPDATE TO [facility] AT [phone]. FOR DISCHARGE, NURSE REPORT TO BE CALLED TO THE [facility] AT [phone], REQUEST TRANSPORT WHEN NURSE REPORT IS CALLED; FAX DISCHARGE MEDICATION LIST AND INSTRUTIONS TO THE [facility] AT [phone]. NOTIFY [facility] AT [phone], FAX DISCHARGE INFORMATION TO [facility] AT [phone]. High School Social Studies Tutor: Raul Gonzalez ARP- Discharge Planning Updated by [id number]: Raul Gonzalez on 05/13/19 1:[address] Patient Name: ANDI BRODY Admission Status: ER Accout number: [id number] Admission Date: 05-12-2019 : 1935 Admission Diagnosis: Attending: KITA SKINNER Current LOS: 1 Anticipated DC Date: Planned Disposition: Assisted Living [facility] Primary Insurance: MEDICARE A & B PLANNED EXTERNAL PROVIDER: [facility] Discharge Planning Comments: CM RECEIVED ORDER FOR INPATIENT REHAB PRESCREENING. CM ATTEMPTED TO MEET WITH PT IN ROOM TO DISCUSS DISCHARGE PLANNING AND NEEDS, PT WAS NOT ABLE TO PROVIDE INFORMATION NEEDED; CM CALLED PT'S LISTED EMERGENCY CONTACT, POWER OF PURCHASE PRICE ANALYST, PEPE WILDER, . PT LIVES AT [facility] IN [place]. PT USES A STANDARD WALKER. PT HAS NOT MEDICAL EQUIPMENT PROVIDER PREFERENCE. PT HAS [facility] FOR THERAPY SERVICES. PT HAS [facility] CALLS MISHA PT'S PRIMARY CARE PHYSICIAN. [facility] DECLINED INPATIENT REHAB OR [facility] F[facility] FOR REHAB. [facility]J REPORTS PT WILL RETURN TO THE [facility] SOON POSSIBLE TO FAMILIAR SURROUNDINGS AND ROUTINE. PJ REPORTS PT IS MENTALLY ILL AND THE LONGER SHE IS AWAY FROM WHAT IS FAMILIAR IS BAD FOR HER MOTHER. PEPE WOULD LIKE [facility] AND ALSO WANTS PT TESTED FOR HOME AND PORTABLE OXYGEN. IF PT QUALIFIES, PEPE HAS NO PREFERENCE ON MEDICAL EQUIPMENT PROVIDER. CHOICE COMPLETED FOR [facility] AND NO PROVIDER PREFERENCE FOR MEDICAL EQUIPMENT PROVIDER. CM NOTIFIED GERRY SEGUN. CM CALLED [facility], , SPOKE TO [facility], NOTIFIED OF ABOVE INFORMATION. FOR DISCHARGE, NURSE REPORT TO BE CALLED TO THE [facility] AT [phone], REQUEST TRANSPORT WHEN NURSE REPORT IS CALLED; FAX DISCHARGE MEDICATION LIST AND INSTRUTIONS TO THE [facility] AT [phone]. NOTIFY [facility] AT [phone], FAX DISCHARGE INFORMATION TO [facility] AT [phone]. High [employer] Social Studies Tutor: Raul Gonzalez DCPIA - Discharge Planning Initial Assessment Updated by [id number]: Raul Gonzalez on 05/13/19 2:12 pm * Is the patient Alert and Oriented? Yes * How many steps to enter\exit or inside your home? NONE * PCP DR. BANERJEE * Pharmacy [facility] * Preadmission Environment Memory Care * Other Environment [facility] * Facility Name [facility] * ADLs Partial Dependent * Partial ADLs (Assistance needed) Bathing Medication Management * Equipment Walker * Other Equipment NO MEDICAL EQUIPMENT PROVIDER PREFERENCE * List name and contact numbers for known caregivers / representatives who currently or will assist patient after discharge: Esteban WILDER, DTR/POA, * Verbal permission to speak to the caregivers and representatives has been obtained from the patient. N/A * Community resources currently utilized Home Health * Please name any agencies selected above. [facility] * Additional services required to return to the preadmission environment? No * Can the patient safely return to the preadmission environment? Yes * Has this patient been hospitalized within the prior 30 days at any hospital? No Coverage Notice Reviewer: [id number] - Raul Gonzalez Notice Issued Date-Time: 05/13/2019 12:40 Notice Type: Patient Choice Letter Notice Delivered To: Family Member Relationship to Patient: Daughter Auto Technician Mechanic Name: PEPE WILDER Delivery Method: PHONE - Phone Thea Days: Prior Verbal Notification: Recipient Understood Notice: Yes Recipient Signature: Yes Med Rec Note Co-signed by Attending: Coverage Notice Comment: [facility], NO MEDICAL EQUIPMENT PROVIDER PREFERENCE. Reviewer: [id number] - Raul Gonzalez Notice Issued Date-Time: 05/15/2019 12:30 Notice Type: IM Discharge Notice Notice Delivered To: Family Member Relationship to Patient: Daughter Auto Technician Mechanic Name: PEPE WILDER Delivery Method: PHONE - Phone Thea Days: Prior Verbal Notification: Recipient Understood Notice: Yes Recipient Signature: Med Rec Note Co-signed by Attending: Coverage Notice Comment: PATIENT UNABLE TO SIGN Last DP export: 05/15/19 11:37 am Patient Name: ANDI BRODY Page [id number] at 1251 All edits/amendments must be made on the electronic document DICTATION DATE: 05/15/19 1251 BOBBIN FIXER: JERROD 05/15/19 1251 RPT#: [id number] DC DATE: STATUS: ADM IN [facility] [address] [place] [address] END OF REPORT
[2019-05-15 16:41] VITALS: BP 122/49
--- NOTE | 2019-05-15 17:29 | NUR ---
OT NOTE: PT COMPLETED BED MOB TASKS WITH MIN/CGA. PT COMPLETED BED TO CHAIR TSF WITH CGA. PT COMPLETED SELF BATHING TASKS WITH MIN/MOD A FOR LB DSG. THANK YOU, MALKA BARBOSA
--- NOTE | 2019-05-15 18:25 | NUR ---
WITHOUT CHANGES OR DISTRESS NOTED AT THIS TIME. DENIES NEEDS
--- NOTE | 2019-05-15 19:20 | NUR ---
RECEIVED REPORT, WILL CPOC. PATIENT IS ALERT, CONFUSED AT TIMES, UP WITH X1 ASSIST. NO S/SX OF DISTRESS NOTED, RR EVEN AND UNLABORED, SR ON MONITORS. IV TO LT JORGE ELLIOTT. IV TO RT FA JORGE. BOTH DRSGS ARE C/D/I. PATIENT DENIES FURTHER NEEDS. CL IN REACH, FALL PRECAUTIONS FOLLOWED, BED ALARM ON. WILL CTM.
[2019-05-15 20:00] VITALS: BP 128/56
[2019-05-16] VITALS: BP 119/56
[2019-05-16 04:00] VITALS: BP 156/94
[2019-05-16 04:41] LABS: BASOPHILS 0.5 % (0-2); EOSINOPHILS 9.3 % (0-7); HEMATOCRIT 34.5 % (36.0-48.0); IMMATURE GRANULOCYTES 0.3 % (0-5); LYMPHOCYTES 29.6 % (15-50); MCH 28.8 pg (26.0-34.0); MCHC 31.9 g/dL (31.0-37.0); MCV 90.3 fL (80.0-100.0); MEAN PLATELET VOLUME 10.9 fL (7.4-10.4); MONOCYTES 10.4 % (2-11); NEUTROPHILS 49.9 % (40-80); PLATELET COUNT 190 10x3/uL (130-400); RBC 3.82 10x6/uL (4.00-5.40); RDW 13.4 % (11.5-14.5); WBC 6.2 10x3/uL (4.8-10.8)
[2019-05-16 05:14] LABS: ALBUMIN 2.9 g/dL (3.4-5.0); ANION GAP 9.7 mmol/L (8-16); BILIRUBIN - TOTAL 0.5 mg/dL (0.2-1.3); CALCIUM 8.7 mg/dL (8.5-10.1); CARBON DIOXIDE 30.5 mmol/L (21.0-32.0); CREATININE - SERUM 1.3 mg/dL (0.6-1.3); MAGNESIUM - SERUM 1.2 mg/dL (1.8-2.4); PHOSPHOROUS 4.3 mg/dL (2.5-4.9); POTASSIUM - SERUM 4.2 mmol/L (3.5-5.1); PROTEIN - SERUM 6.5 g/dL (6.4-8.2)
[2019-05-16 05:17] LABS: TROPONIN-I 7.539 ng/mL (0.000-0.060)
--- NOTE | 2019-05-16 05:30 | NUR ---
LAB RESULTS MAG 1.2 GAVE 400MG OF MAG OX PO, NEXT DOSES DUE 3555, 2736, 1723
--- NOTE | 2019-05-16 06:16 | NUR ---
PATIENT IS RUNNING SINUS TACH ON MONITORS FOR EXTENDED PERIODS, GAVE 0900 CARDIAC MEDS EARLY. WILL CTM.
--- NOTE | 2019-05-16 07:09 | NUR ---
REPORT RECEIVED. WILL CONTINUE WITH POC. PT CURRENTLY LYING SEMI FOWLERS. CALL LIGHT W/I REACH. PT IS RESTING AT THE MOMENT. RR EVEN AND UNLABORED ON 2L 02. L.AC AND R.FOR PIV'S ARE SALINE LOCKED. PT DENIES ANY NEEDS AT THIS TIME. NO S/S OF DISTRESS NOTED. WILL CTM.
[2019-05-16 09:17] VITALS: BP 116/41
--- NOTE | 2019-05-16 09:52 | NUR ---
I have reviewed this patient and I concur with the Shift Assessment completed by the Licensed Practical Nurse today this shift.
[2019-05-16 12:22] VITALS: BP 115/44
--- NOTE | 2019-05-16 13:34 | NUR ---
Nutrition Follow-up: Diet: Cardiac PO intake: 58% (05/14-05/15) Last BM: 05/16 per chart Wt: 148# Labs noted: Glu 110, Mg 1.2, Alb 2.9 Meds noted: MagOx, Colace May consider cardiac carb consistent diet. [place] food preferences within diet restrictions. RD following.
--- NOTE | 2019-05-16 14:10 | NUR ---
PT ASSISTED TO AND FROM BATHROOM 10 PLUS TIMES WHERE PT HAS ONLY VOIDED APPROXIMATELY 200ML OF PALE YELLOW URINE. NO BM NOTED. PT CONFUSED TO SITUATION, TIME, PLACE, AND PERSON. PT DOES NOT BELIEVE THAT SHE IS GOING TO THE BATHROOM AND QUICKLY FORGETS THAT SHE HAS BEEN TO THE BATHROOM HENCE WHY SHE KEEPS ASKING EVERY 10 TO 15 MINUTES TO GO TO THE BATHROOM. WILL CTM.
--- NOTE | 2019-05-16 14:18 | NUR ---
OT NOTE: BED MOB WITH MIN ASSIST; FUNCTIONAL TRANSFERS WITH MIN ASSIST. SET UP FOR SIMPLE GROOMING AND FEEDING.. OCCASSIONAL VERBAL CUES FOR FEEDING TASKS. ROWAN LUNA, OTR/L
--- NOTE | 2019-05-16 15:39 | NUR ---
PT CURRENTLY LYING SEMI FOWLERS. CALL LIGHT W/I REACH. PT C/O OF BALDWIN. ADMINISTERED ORDERED DOSE OF TYLENOL. PT DENIES ANY FURTHER NEEDS. NO S/S OF DISTRESS NOTED. WILL CTM.
--- NOTE | 2019-05-16 16:26 | NUR ---
OT NOTE: PT COMPLETED BED MOB WITH MIN A FOR SUPINE TO SIT. PT COMPLETED ADL MOB WITH HAND HELD ASSIST TO TOILET. PT COMPLETED TOILETING TASKS WITH MAX A FOR HYGIENE. PT STATED SHE IS CONSTIPATED, ACE NOTIFIED NURSING. PT IS ANXIOUS THIS AM. THANK YOU, MALKA BARBOSA
--- NOTE | 2019-05-16 17:06 | MORECARE ---
CASE MANAGEMENT DISCHARGE SUMMARY PATIENT: ANDI BRODY UNIT: [id number] ADM DATE: 05/13/19 AGE: 84 : 33 SEX: F ROOM/BED: D.9680 AUTHOR: ROWENADOC PHYSICIAN: REFERRING PHYSICIAN: KITA SKINNER MD DATE OF SERVICE: 05/16/19 Discharge Plan Patient Name: ANDI BRODY Facility: [facility]:[place] : 1935 Planned Disposition: Assisted Living Anticipated Discharge Date: 05/17/19 Discharge Date: Expected LOS: 4 Initial Reviewer: [id number] Initial Review Date: 05/13/2019 Generated: 05/16/19 6:06 pm DCP- Discharge Planning Updated by [id number]: Raul Gonzalez on 05/15/19 11:[address] Patient Name: ANDI BRODY Encounter No: [id number] : 1935 Primary Insurance: MEDICARE A & B Anticipated DC Date: 05-15-2019 Planned Disposition: Assisted Living External Planned Provider:[facility] Discharge Planning Comments: CM RECEIVED CALL FROM PT'S LISTED EMERGENCY CONTACT, POWER OF OPTIMIZATION CONSULTANT, PEPE WILDER, . SHE WOULD LIKE PT TO HAVE OXYGEN AND RETURN TO THE [facility] IN [facility]. CM RECEIVED OXYGEN TESTING RESULT, PT QUALIFIES FOR HOME AND PORTABLE OXYGEN. IMPORTANT MESSAGE FROM MEDICARE LEFT WITH PT IN ROOM, DISCUSSED WITH PEPE WILDER VIA PHONE. CM CALLED [facility], , SPOKE TO JAE AND PROVIDED REFERRAL INFORMATION. CM FAXED REFERRAL TO [facility], . JAE ADVISED THEY WILL DELIVER PORTABLE OXYGEN TO HOSPITAL TODAY AND WILL ARRANGE HOME OXYGEN WHEN PT ARRIVES AT THE [facility] AFTER DISCHARGE. CM CALLED [facility], , SPOKE TO DANE AND LEFT MESSSAGE FROM RAVI OF PT'S PLANNED DC BACK TODAY WITH NEW OXYGEN. CM CALLED [facility], , SPOKE TO JER, NOTIFIED OF PLANNED DISCHARGE TODAY AND NEW OXYGEN FOR HOME HEALTH RESUMPTION. FOR DISCHARGE, NURSE REPORT TO BE CALLED TO THE [facility] AT [phone], REQUEST TRANSPORT WHEN NURSE REPORT IS CALLED; FAX DISCHARGE MEDICATION LIST AND INSTRUTIONS TO THE [facility] AT [phone]. FAX DISCHARGE INFORMATION TO [facility] AT [phone]. General Store Manager: Raul Gonzalez GAP- Discharge Planning Updated by [id number]: Raul Gonzalez on 05/15/19 6:[address] Patient Name: ANDI BRODY Encounter No: [id number] : 1935 Primary Insurance: MEDICARE A & B Anticipated DC Date: 05-15-2019 Planned Disposition: Assisted Living External Planned Provider: [facility] Discharge Planning Comments: CM FAXED HOSPITAL UPDATE TO THE [facility], ; CM FAXED HOSPITAL UPDATE TO [facility] AT [phone]. FOR DISCHARGE, NURSE REPORT TO BE CALLED TO THE [facility] AT [phone], REQUEST TRANSPORT WHEN NURSE REPORT IS CALLED; FAX DISCHARGE MEDICATION LIST AND INSTRUTIONS TO THE [facility] AT [phone]. NOTIFY [facility] AT [phone], FAX DISCHARGE INFORMATION TO [facility] AT [phone]. General Store Manager: Raul Gonzalez GAP- Discharge Planning Updated by [id number]: Raul Gonzalez on 05/13/19 1:[address] Patient Name: ANDI BRODY Admission Status: ER Accout number: [id number] Admission Date: 05-12-2019 : 1935 Admission Diagnosis: Attending: KITA SKINNER Current LOS: 1 Anticipated DC Date: Planned Disposition: Assisted Living [facility] Primary Insurance: MEDICARE A & B PLANNED EXTERNAL PROVIDER: [facility] Discharge Planning Comments: CM RECEIVED ORDER FOR INPATIENT REHAB PRESCREENING. CM ATTEMPTED TO MEET WITH PT IN ROOM TO DISCUSS DISCHARGE PLANNING AND NEEDS, PT WAS NOT ABLE TO PROVIDE INFORMATION NEEDED; CM CALLED PT'S LISTED EMERGENCY CONTACT, POWER OF OPTIMIZATION CONSULTANT, PEPE WILDER, . PT LIVES AT [facility] IN [facility]. PT USES A STANDARD WALKER. PT HAS NOT MEDICAL EQUIPMENT PROVIDER PREFERENCE. PT HAS [facility]. PT HAS [facility] CALLS MISHA PT'S PRIMARY CARE PHYSICIAN. [facility] DECLINED INPATIENT REHAB OR [facility] FACILITY FOR REHAB. PEPE REPORTS PT WILL RETURN TO THE [facility] SOON POSSIBLE TO FAMILIAR SURROUNDINGS AND ROUTINE. PEPE REPORTS PT IS MENTALLY ILL AND THE LONGER SHE IS AWAY FROM WHAT IS FAMILIAR IS BAD FOR HER MOTHER. PEPE WOULD LIKE [facility] FOR HOME HEALTH AND ALSO WANTS PT TESTED FOR HOME AND PORTABLE OXYGEN. IF PT QUALIFIES, [facility] HAS NO PREFERENCE ON MEDICAL EQUIPMENT PROVIDER. CHOICE COMPLETED FOR [facility] AND NO PROVIDER PREFERENCE FOR MEDICAL EQUIPMENT PROVIDER. CM NOTIFIED GERRY SEGUN. CM CALLED [facility], , SPOKE TO [facility], NOTIFIED OF ABOVE INFORMATION. FOR DISCHARGE, NURSE REPORT TO BE CALLED TO THE [facility] AT [phone], REQUEST TRANSPORT WHEN NURSE REPORT IS CALLED; FAX DISCHARGE MEDICATION LIST AND INSTRUTIONS TO THE [facility] AT [phone]. NOTIFY [facility] AT [phone], FAX DISCHARGE INFORMATION TO [facility] AT [phone]. General Store Manager: Raul Gonzalez DCPIA - Discharge Planning Initial Assessment Updated by [email or web address]: Raul Gonzalez on 05/13/19 2:12 pm * Is the patient Alert and Oriented? Yes * How many steps to enter\exit or inside your home? NONE * PCP DR. BANERJEE * Pharmacy [facility] * Preadmission Environment [facility] * Other Environment [facility] * Facility Name [facility] * ADLs Partial Dependent * Partial ADLs (Assistance needed) Bathing Medication Management * Equipment Walker * Other Equipment NO MEDICAL EQUIPMENT PROVIDER PREFERENCE * List name and contact numbers for known caregivers / representatives who currently or will assist patient after discharge: Esteban WILDER, DTR/POA, * Verbal permission to speak to the caregivers and representatives has been obtained from the patient. N/A * Community resources currently utilized Home Health * Please name any agencies selected above. [facility] * Additional services required to return to the preadmission environment? No * Can the patient safely return to the preadmission environment? Yes * Has this patient been hospitalized within the prior 30 days at any hospital? No Coverage Notice Reviewer: [id number] - Raul Gonzalez Notice Issued Date-Time: 05/13/2019 12:40 Notice Type: Patient Choice Letter Notice Delivered To: Family Member Relationship to Patient: Daughter Senior Portfolio Analyst Name: PEPE WILDER Delivery Method: PHONE - Phone Thea Days: Prior Verbal Notification: Recipient Understood Notice: Yes Recipient Signature: Yes Med Rec Note Co-signed by Attending: Coverage Notice Comment: [facility], NO MEDICAL EQUIPMENT PROVIDER PREFERENCE. Reviewer: [id number] - Raul Gonzalez Notice Issued Date-Time: 05/15/2019 12:30 Notice Type: IM Discharge Notice Notice Delivered To: Family Member Relationship to Patient: Daughter Senior Portfolio Analyst Name: PEPE WILDER Delivery Method: PHONE - Phone Thea Days: Prior Verbal Notification: Recipient Understood Notice: Yes Recipient Signature: Med Rec Note Co-signed by Attending: Coverage Notice Comment: PATIENT UNABLE TO SIGN Last DP export: 05/15/19 11:51 am Patient Name: ANDI BRODY Page [id number] at 1706 All edits/amendments must be made on the electronic document DICTATION DATE: 05/16/191704 AUTOMOBILE RELOCATION ENGINEER: JERROD 05/16/191704 RPT#: [id number] DC DATE: STATUS: ADM IN [facility] [address] [place] [address] END OF REPORT
--- NOTE | 2019-05-16 17:16 | MORECARE ---
CASE MANAGEMENT DISCHARGE SUMMARY PATIENT: ANDI BRODY UNIT: [id number] ADM DATE: 05/13/19 AGE: 84 : 33 SEX: F ROOM/BED: D.4523 AUTHOR: ROWENA,DOC PHYSICIAN: REFERRING PHYSICIAN: KITA SKINNER MD DATE OF SERVICE: 05/16/19 Discharge Plan Patient Name: ANDI BRODY Facility: [facility]:[place] : 1935 Planned Disposition: Assisted Living Anticipated Discharge Date: 05/17/19 Discharge Date: Expected LOS: 4 Initial Reviewer: [id number] Initial Review Date: 05/13/2019 Generated: 05/16/19 6:15 pm Comments DCP- Discharge Planning Updated by [id number]: Raul Gonzalez on 05/16/19 4:[address] Patient Name: ANDI BRODY Encounter No: [id number] : 1935 Primary Insurance: MEDICARE A & B Anticipated DC Date: 05-17-2019 Planned Disposition: Assisted Living WITH HOME HEALTH External Planned Provider:[facility] Discharge Planning Comments: CM CALLED AND SPOKE TO JAE AT THE [facility], PT WILL NOT REQUIRE REASSESSMENT. CM SPOKE TO NURSE ANI RAYMOND AT THE [facility], PROVIDED UPDATE; ANI REQUESTED HOME HEALTH WITH [facility] FOR PHYSICAL THERAPY, THEY WILL NEED NURSE REPORT IN THE MORNING AND WILL ARRANGE VAN CHILD WELFARE MANAGER. OXYGEN HAS BEEN DELIVERED FROM [facility] AT THE [facility] FOR PT. CM CALLED [facility], , SPOKE TO ALEX, NOTIFIED OF PLANNED DISCHARGE TOMORROW AND NEW OXYGEN FOR HOME HEALTH AND [facility]IS MEDICATION FOR RESUMPTION OF HOME HEALTH SERVICES. FOR DISCHARGE, NURSE REPORT TO BE CALLED TO THE [facility] AT [phone], REQUEST TRANSPORT WHEN NURSE REPORT IS CALLED; FAX DISCHARGE MEDICATION LIST AND INSTRUTIONS TO THE [facility] AT [phone]. FAX DISCHARGE INFORMATION TO [facility] AT [phone]. Parole Or Probation Officer: Raul Gonzalez DCP- Discharge Planning Updated by [id number]: Raul Gonzalez on 05/15/19 11:[address] Patient Name: ANDI BRODY Encounter No: [id number] : 1935 Primary Insurance: MEDICARE A & B Anticipated DC Date: 05-15-2019 Planned Disposition: Assisted Living External Planned Provider:[facility] Discharge Planning Comments: CM RECEIVED CALL FROM PT'S LISTED EMERGENCY CONTACT, POWER OF KENNEL HELPER, PEPE WILDER, . SHE WOULD LIKE PT TO HAVE OXYGEN AND RETURN TO THE [facility]. CM RECEIVED OXYGEN TESTING RESULT, PT QUALIFIES FOR HOME AND PORTABLE OXYGEN. IMPORTANT MESSAGE FROM MEDICARE LEFT WITH PT IN ROOM, DISCUSSED WITH PEPE WILDER VIA PHONE. CM CALLED [facility], , SPOKE TO JAE AND PROVIDED REFERRAL INFORMATION. CM FAXED REFERRAL TO [facility], . JAE ADVISED THEY WILL DELIVER PORTABLE OXYGEN TO HOSPITAL TODAY AND WILL ARRANGE HOME OXYGEN WHEN PT ARRIVES AT THE [facility] AFTER DISCHARGE. CM CALLED [facility], , SPOKE TO DANE AND LEFT MESSSAGE FROM RAVI OF PT'S PLANNED DC BACK TODAY WITH NEW OXYGEN. CM CALLED [facility], , SPOKE TO JER, NOTIFIED OF PLANNED DISCHARGE TODAY AND NEW OXYGEN FOR HOME HEALTH RESUMPTION. FOR DISCHARGE, NURSE REPORT TO BE CALLED TO THE [facility] AT [phone], REQUEST TRANSPORT WHEN NURSE REPORT IS CALLED; FAX DISCHARGE MEDICATION LIST AND INSTRUTIONS TO THE [facility] AT [phone]. FAX DISCHARGE INFORMATION TO [facility] AT [phone]. Parole Or Probation Officer: Raul Gonzalez DCP- Discharge Planning Updated by [id number]: Raul Gonzalez on 05/15/19 6:[address] Patient Name: ANDI BRODY Encounter No: [id number] : 1935 Primary Insurance: MEDICARE A & B Anticipated DC Date: 05-15-2019 Planned Disposition: Assisted Living External Planned Provider: [facility] Discharge Planning Comments: CM FAXED HOSPITAL UPDATE TO THE [facility], ; CM FAXED HOSPITAL UPDATE TO [facility] AT [phone]. FOR DISCHARGE, NURSE REPORT TO BE CALLED TO THE [facility] AT [phone], REQUEST TRANSPORT WHEN NURSE REPORT IS CALLED; FAX DISCHARGE MEDICATION LIST AND INSTRUTIONS TO THE [facility] AT [phone]. NOTIFY [facility] AT [phone], FAX DISCHARGE INFORMATION TO [facility] AT [phone]. Parole Or Probation Officer: Raul Gonzalez DCP- Discharge Planning Updated by [id number]: Raul Gonzalez on 05/13/19 1:[address] Patient Name: ANDI BRODY Admission Status: ER Accout number: [id number] Admission Date: 05-12-2019 : 1935 Admission Diagnosis: Attending: KITA SKINNER Current LOS: 1 Anticipated DC Date: Planned Disposition: Assisted Living - [facility] Primary Insurance: MEDICARE A & B PLANNED EXTERNAL PROVIDER: [facility] Discharge Planning Comments: CM RECEIVED ORDER FOR INPATIENT REHAB PRESCREENING. CM ATTEMPTED TO MEET WITH PT IN ROOM TO DISCUSS DISCHARGE PLANNING AND NEEDS, PT WAS NOT ABLE TO PROVIDE INFORMATION NEEDED; CM CALLED PT'S LISTED EMERGENCY CONTACT, POWER OF KENNEL HELPER, PEPE WILDER, . PT LIVES AT [facility] IN [facility]. PT USES A STANDARD WALKER. PT HAS NOT MEDICAL EQUIPMENT PROVIDER PREFERENCE. PT HAS [facility] FOR THERAPY SERVICES. PT HAS [facility] CALLS [facility]HA PT'S PRIMARY CARE PHYSICIAN. [facility] DECLINED INPATIENT REHAB OR HALFWAY FACILITY FOR REHAB. [facility] REPORTS PT WILL RETURN TO THE [facility] SOON POSSIBLE TO FAMILIAR SURROUNDINGS AND ROUTINE. PJ REPORTS PT IS MENTALLY ILL AND THE LONGER SHE IS AWAY FROM WHAT IS FAMILIAR IS BAD FOR HER MOTHER. PEPE WOULD LIKE [facility] FOR HOME HEALTH AND ALSO WANTS PT TESTED FOR HOME AND PORTABLE OXYGEN. IF PT QUALIFIES, [facility] HAS NO PREFERENCE ON MEDICAL EQUIPMENT PROVIDER. CHOICE COMPLETED FOR [facility] AND NO PROVIDER PREFERENCE FOR MEDICAL EQUIPMENT PROVIDER. CM NOTIFIED GERRY CAST. CM CALLED [facility], , SPOKE TO [facility], NOTIFIED OF ABOVE INFORMATION. FOR DISCHARGE, NURSE REPORT TO BE CALLED TO THE [facility] AT [phone], REQUEST TRANSPORT WHEN NURSE REPORT IS CALLED; FAX DISCHARGE MEDICATION LIST AND INSTRUTIONS TO THE [facility] AT [phone]. NOTIFY [facility] AT [phone], FAX DISCHARGE INFORMATION TO [facility] AT [phone]. Parole Or Probation Officer: Raul Gonzalez DCPIA - Discharge Planning Initial Assessment Updated by [email or web address]: Raul Gonzalez on 05/13/19 2:12 pm * Is the patient Alert and Oriented? Yes * How many steps to enter\exit or inside your home? NONE * PCP DR. BANERJEE * Pharmacy [facility] * Preadmission Environment [facility] Care * Other Environment [facility] * Facility Name [facility] * ADLs Partial Dependent * Partial ADLs (Assistance needed) Bathing Medication Management * Equipment Walker * Other Equipment NO MEDICAL EQUIPMENT PROVIDER PREFERENCE * List name and contact numbers for known caregivers / representatives who currently or will assist patient after discharge: Esteban WILDER, DTR/POEric, * Verbal permission to speak to the caregivers and representatives has been obtained from the patient. N/A * Community resources currently utilized Home Health * Please name any agencies selected above. [facility] * Additional services required to return to the preadmission environment? No * Can the patient safely return to the preadmission environment? Yes * Has this patient been hospitalized within the prior 30 days at any hospital? No Coverage Notice Reviewer: [id number] Starla Gonzalez Notice Issued Date-Time: 05/13/2019 12:40 Notice Type: Patient Choice Letter Notice Delivered To: Family Member Relationship to Patient: Daughter Hat Forming Machine Feeder Name: PEPE WILDER Delivery Method: PHONE - Phone Thea Days: Prior Verbal Notification: Recipient Understood Notice: Yes Recipient Signature: Yes Med Rec Note Co-signed by Attending: Coverage Notice Comment: [facility], NO MEDICAL EQUIPMENT PROVIDER PREFERENCE. Reviewer: [id number] Starla Gonzalez Notice Issued Date-Time: 05/15/2019 12:30 Notice Type: IM Discharge Notice Notice Delivered To: Family Member Relationship to Patient: Daughter Hat Forming Machine Feeder Name: PEPE WILDER Delivery Method: PHONE - Phone Thea Days: Prior Verbal Notification: Recipient Understood Notice: Yes Recipient Signature: Med Rec Note Co-signed by Attending: Coverage Notice Comment: PATIENT UNABLE TO SIGN Last DP export: 05/16/19 4:06 pm Patient Name: ANDI BRODY Page [id number] Electronically Signed by [facility] OK[facility]HOMA CITYAlexandrea on 05/16/19 at 1716 All edits/amendments must be made on the electronic document DICTATION DATE: 05/16/191714 MOTOR ELECTRICIAN: JERROD 05/16/191714 RPT#: [id number] DC DATE: STATUS: ADM IN [facility] [address] [place] [address] END OF REPORT
--- NOTE | 2019-05-16 19:12 | NUR ---
RESUMING PATIENT CARE. PATIENT IS ALERT AND ORIENTED X 1. PATIENT RESTING COMFORTABLY IN BED. RESPIRATIONS ARE EVEN AND UNPABORED. NO S/S OF DISTRESS. NO C/O PAIN. CALL LIGHT WITHIN REACH. WILL CPOC.
[2019-05-16 20:00] VITALS: BP 137/70
--- NOTE | 2019-05-16 22:35 | NUR ---
PATIENT RESTING COMFORTABLY IN BED. RESPIRATIONS ARE EVEN AND UNLABORED. NO S/S OF DISTRESS. NO C/O PAIN. CALL LIGHT WITHIN REACH. WILL CPOC.
[2019-05-17] VITALS: BP 123/51
[2019-05-17 05:09] LABS: BASOPHILS 0.3 % (0-2); EOSINOPHILS 8.9 % (0-7); HEMATOCRIT 34.5 % (36.0-48.0); HEMOGLOBIN 11.2 g/dL (12-16); IMMATURE GRANULOCYTES 0.3 % (0-5); LYMPHOCYTES 26.6 % (15-50); MCH 29.3 pg (26.0-34.0); MCHC 32.5 g/dL (31.0-37.0); MCV 90.3 fL (80.0-100.0); MEAN PLATELET VOLUME 10.9 fL (7.4-10.4); NEUTROPHILS 51.9 % (40-80); PLATELET COUNT 188 10x3/uL (130-400); RBC 3.82 10x6/uL (4.00-5.40); RDW 13.4 % (11.5-14.5); WBC 6.4 10x3/uL (4.8-10.8)
[2019-05-17 05:45] LABS: ANION GAP 9.9 mmol/L (8-16); BILIRUBIN - TOTAL 0.47 mg/dL (0.2-1.3); CALCIUM 9.1 mg/dL (8.5-10.1); CARBON DIOXIDE 31.3 mmol/L (21.0-32.0); CREATININE - SERUM 1.2 mg/dL (0.6-1.3); MAGNESIUM - SERUM 1.3 mg/dL (1.8-2.4); PHOSPHOROUS 4.4 mg/dL (2.5-4.9); POTASSIUM - SERUM 4.2 mmol/L (3.5-5.1); PROTEIN - SERUM 6.7 g/dL (6.4-8.2)
--- NOTE | 2019-05-17 09:14 | MORECARE ---
CASE MANAGEMENT DISCHARGE SUMMARY PATIENT: ANDI BRODY UNIT: [id number] ADM DATE: 05/13/19 AGE: 84 : 33 SEX: F ROOM/BED: D.7978 AUTHOR: ROWENADOC PHYSICIAN: REFERRING PHYSICIAN: KITA SKINNER MD DATE OF SERVICE: 05/17/19 Discharge Plan Patient Name: ANDI BRODY Facility: [facility]:[place] : 1935 Planned Disposition: Assisted Living Anticipated Discharge Date: 05/17/19 Discharge Date: Expected LOS: 4 Initial Reviewer: [id number] Initial Review Date: 05/13/2019 Generated: 05/17/19 10:14 am Comments DCP- Discharge Planning Updated by [id number]: Raul Gonzalez on 05/16/19 4:[address] Patient Name: ANDI BRODY Encounter No: [id number] : 1935 Primary Insurance: MEDICARE A & B Anticipated DC Date: 05-17-2019 Planned Disposition: Assisted Living WITH HOME HEALTH External Planned Provider:[facility] Discharge Planning Comments: CM CALLED AND SPOKE TO JAE AT THE [facility], PT WILL NOT REQUIRE REASSESSMENT. CM SPOKE TO NURSE ANI RAYMOND AT THE [facility], PROVIDED UPDATE; ANI REQUESTED HOME HEALTH WITH [facility] FOR [facility]YSICAL THERAPY, THEY WILL NEED NURSE REPORT IN THE MORNING AND WILL ARRANGE VAN RIGGING LOFT REPAIRER. OXYGEN HAS BEEN DELIVERED FROM [facility] AT THE [facility] FOR PT. CM CALLED [facility], , SPOKE TO ALEX, NOTIFIED OF PLANNED DISCHARGE TOMORROW AND NEW OXYGEN FOR HOME HEALTH AND ELIQUIS MEDICATION FOR RESUMPTION OF HOME HEALTH SERVICES. FOR DISCHARGE, NURSE REPORT TO BE CALLED TO THE [facility] AT [phone], REQUEST TRANSPORT WHEN NURSE REPORT IS CALLED; FAX DISCHARGE MEDICATION LIST AND INSTRUTIONS TO THE [facility] AT [phone]. FAX DISCHARGE INFORMATION TO [facility] AT [phone]. Plan Nurse: Raul Gonzalez DCP- Discharge Planning Updated by [id number]: Raul Gonzalez on 05/15/19 11:[address] Patient Name: ANDI BRODY Encounter No: [id number] : 1935 Primary Insurance: MEDICARE A & B Anticipated DC Date: 05-15-2019 Planned Disposition: Assisted Living External Planned Provider:[facility] Discharge Planning Comments: CM RECEIVED CALL FROM PT'S LISTED EMERGENCY CONTACT, POWER OF ALLOY WEIGHER, PEPE WILDER, . SHE WOULD LIKE PT TO HAVE OXYGEN AND RETURN TO THE [facility]. CM RECEIVED OXYGEN TESTING RESULT, PT QUALIFIES FOR HOME AND PORTABLE OXYGEN. IMPORTANT MESSAGE FROM MEDICARE LEFT WITH PT IN ROOM, DISCUSSED WITH PEPE WILDER VIA PHONE. CM CALLED [facility], , SPOKE TO JAE AND PROVIDED REFERRAL INFORMATION. CM FAXED REFERRAL TO [facility], . JAE ADVISED THEY WILL DELIVER PORTABLE OXYGEN TO HOSPITAL TODAY AND WILL ARRANGE HOME OXYGEN WHEN PT ARRIVES AT [facility] AFTER DISCHARGE. CM CALLED [facility], , SPOKE TO DANE AND LEFT MESSSAGE FROM RAVI OF PT'S PLANNED DC BACK TODAY WITH NEW OXYGEN. CM CALLED [facility], , SPOKE TO JER, NOTIFIED OF PLANNED DISCHARGE TODAY AND NEW OXYGEN FOR HOME HEALTH RESUMPTION. FOR DISCHARGE, NURSE REPORT TO BE CALLED TO THE [facility] AT [phone], REQUEST TRANSPORT WHEN NURSE REPORT IS CALLED; FAX DISCHARGE MEDICATION LIST AND INSTRUTIONS TO THE [facility] AT [phone]. FAX DISCHARGE INFORMATION TO [facility] AT [phone]. Plan Nurse: Raul Gonzalez DCP- Discharge Planning Updated by [id number]: Raul Gonzalez on 05/15/19 6:[address] Patient Name: ANDI BRODY Encounter No: [id number] : 1935 Primary Insurance: MEDICARE A & B Anticipated DC Date: 05-15-2019 Planned Disposition: Assisted Living External Planned Provider: [facility] Discharge Planning Comments: CM FAXED HOSPITAL UPDATE TO [facility], ; CM FAXED HOSPITAL UPDATE TO [facility] AT [phone]. FOR DISCHARGE, NURSE REPORT TO BE CALLED TO THE [facility] AT [phone], REQUEST TRANSPORT WHEN NURSE REPORT IS CALLED; FAX DISCHARGE MEDICATION LIST AND INSTRUTIONS TO THE [facility] AT [phone]. NOTIFY [facility] AT [phone], FAX DISCHARGE INFORMATION TO [facility] AT [phone]. Plan Nurse: Raul Gonzalez DCP- Discharge Planning Updated by [id number]: Raul Gonzalez on 05/13/19 1:[address] Patient Name: ANDI BRODY Admission Status: ER Accout number: [id number] Admission Date: 05-12-2019 : 1935 Admission Diagnosis: Attending: KITA SKINNER Current LOS: 1 Anticipated DC Date: Planned Disposition: Assisted Living - [facility] Primary Insurance: MEDICARE A & B PLANNED EXTERNAL PROVIDER: [facility] Discharge Planning Comments: CM RECEIVED ORDER FOR INPATIENT REHAB PRESCREENING. CM ATTEMPTED TO MEET WITH PT IN ROOM TO DISCUSS DISCHARGE PLANNING AND NEEDS, PT WAS NOT ABLE TO PROVIDE INFORMATION NEEDED; CM CALLED PT'S LISTED EMERGENCY CONTACT, POWER OF ALLOY WEIGHER, PEPE WILDER, . PT LIVES AT [facility] IN [facility]. PT USES A STANDARD WALKER. PT HAS NOT MEDICAL EQUIPMENT PROVIDER PREFERENCE. PT HAS [facility] FOR THERAPY SERVICES. PT HAS [facility] CALLS M[facility] PT'S PRIMARY CARE PHYSICIAN. [facility] DECLINED INPATIENT REHAB OR [facility] FACILITY FOR REHAB. [facility] REPORTS PT WILL RETURN TO THE [facility] SOON POSSIBLE TO FAMILIAR SURROUNDINGS AND ROUTINE. [facility] REPORTS PT IS MENTALLY ILL AND THE LONGER SHE IS AWAY FROM WHAT IS FAMILIAR IS BAD FOR HER MOTHER. PEPE WOULD LIKE [facility]ED FOR HOME HEALTH AND ALSO WANTS PT TESTED FOR HOME AND PORTABLE OXYGEN. IF PT QUALIFIES, [facility] HAS NO PREFERENCE ON MEDICAL EQUIPMENT PROVIDER. CHOICE COMPLETED FOR [facility] AND NO PROVIDER PREFERENCE FOR MEDICAL EQUIPMENT PROVIDER. CM NOTIFIED [facility]. CM CALLED [facility], , [facility], NOTIFIED OF ABOVE INFORMATION. FOR DISCHARGE, NURSE REPORT TO BE CALLED TO THE [facility] AT [phone], REQUEST TRANSPORT WHEN NURSE REPORT IS CALLED; FAX DISCHARGE MEDICATION LIST AND INSTRUTIONS TO THE [facility] AT [phone]. NOTIFY [facility] AT [phone], FAX DISCHARGE INFORMATION TO [facility] AT [phone]. Plan Nurse: Raul Gonzalez DCPIA - Discharge Planning Initial Assessment Updated by [id number]: Raul Gonzalez on 05/13/19 2:12 pm * Is the patient Alert and Oriented? Yes * How many steps to enter\exit or inside your home? NONE * PCP DR. BANERJEE * [facility] * Preadmission Environment Memory Care * Other Environment [facility] * Facility Name [facility] * ADLs Partial Dependent * Partial ADLs (Assistance needed) Bathing Medication Management * Equipment Walker * Other Equipment NO MEDICAL EQUIPMENT PROVIDER PREFERENCE * List name and contact numbers for known caregivers / representatives who currently or will assist patient after discharge: Esteban WILDER, DTR/POEric, * Verbal permission to speak to the caregivers and representatives has been obtained from the patient. N/A * Community resources currently utilized Home Health * Please name any agencies selected above. [facility] * Additional services required to return to the preadmission environment? No * Can the patient safely return to the preadmission environment? Yes * Has this patient been hospitalized within the prior 30 days at any hospital? No Coverage Notice Reviewer: [id number] Starla Gonzalez Notice Issued Date-Time: 05/13/2019 12:40 Notice Type: Patient Choice Letter Notice Delivered To: Family Member Relationship to Patient: Daughter Director Women Name: PEPE WILDER Delivery Method: PHONE - Phone Thea Days: Prior Verbal Notification: Recipient Understood Notice: Yes Recipient Signature: Yes Med Rec Note Co-signed by Attending: Coverage Notice Comment: [facility], NO MEDICAL EQUIPMENT PROVIDER PREFERENCE. Reviewer: [id number] Starla Gonzalez Notice Issued Date-Time: 05/15/2019 12:30 Notice Type: IM Discharge Notice Notice Delivered To: Family Member Relationship to Patient: Daughter Director Women Name: PEPE WILDER Delivery Method: PHONE - Phone Thea Days: Prior Verbal Notification: Recipient Understood Notice: Yes Recipient Signature: Med Rec Note Co-signed by Attending: Coverage Notice Comment: PATIENT UNABLE TO SIGN Last DP export: 05/16/19 4:16 pm Patient Name: ANDI BRODY Page [id number] at 0914 All edits/amendments must be made on the electronic document DICTATION DATE: 05/17/19912 GRITTING MACHINE OPERATOR: JERROD 05/17/19912 RPT#: [id number] DC DATE: STATUS: ADM IN [facility] [address] [place] [address] END OF REPORT
[2019-05-17 09:27] VITALS: BP 130/51
[2019-05-17] MEDS ORDERED: BETAPACE 80 MG80 MG PO (10:18)
[2019-05-17] MEDS ORDERED: CARDIZEM60 MG PO (10:19)
[2019-05-17] MEDS ORDERED: ELIQUIS5 MG PO (10:24)
--- NOTE | 2019-05-17 11:12 | MORECARE ---
CASE MANAGEMENT DISCHARGE SUMMARY PATIENT: ANDI BRODY UNIT: [id number] ADM DATE: 05/13/19 AGE: 84 : 33 SEX: F ROOM/BED: D.8222 AUTHOR: ROWENA,DOC PHYSICIAN: REFERRING PHYSICIAN: KITA SKINNER MD DATE OF SERVICE: 05/17/19 Discharge Plan Patient Name: ANDI BRODY Facility: [facility]:[place] : 1935 Planned Disposition: Assisted Living Anticipated Discharge Date: 05/17/19 Discharge Date: Expected LOS: 4 Initial Reviewer: [id number] Initial Review Date: 05/13/2019 Generated: 05/17/19 12:12 pm Comments DCP- Discharge Planning Updated by [id number]: Raul Gonzalez on 05/16/19 4:[address] Patient Name: ANDI BRODY Encounter No: [id number] : 1935 Primary Insurance: MEDICARE A & B Anticipated DC Date: 05-17-2019 Planned Disposition: Assisted Living WITH HOME HEALTH External Planned Provider:[facility] Discharge Planning Comments: CM CALLED AND SPOKE TO JAE AT THE [facility], PT WILL NOT REQUIRE REASSESSMENT. CM SPOKE TO NURSE ANI RAYMOND AT THE [facility], PROVIDED UPDATE; ANI REQUESTED HOME HEALTH WITH [facility] FOR PHYSICAL THERAPY, THEY WILL NEED NURSE REPORT IN THE MORNING AND WILL ARRANGE VAN BACK SHOE OPERATOR. OXYGEN HAS BEEN DELIVERED FROM [facility] AT THE [facility] FOR PT. CM CALLED [facility], , SPOKE TO ALEX, NOTIFIED OF PLANNED DISCHARGE TOMORROW AND NEW OXYGEN FOR HOME HEALTH AND ELIQUIS MEDICATION FOR RESUMPTION OF HOME HEALTH SERVICES. FOR DISCHARGE, NURSE REPORT TO BE CALLED TO THE [facility] AT [phone], REQUEST TRANSPORT WHEN NURSE REPORT IS CALLED; FAX DISCHARGE MEDICATION LIST AND INSTRUTIONS TO THE [facility] AT [phone]. FAX DISCHARGE INFORMATION TO [facility] AT [phone]. Graduate Assistant Athletic Trainer: Raul Gonzalez DCP- Discharge Planning Updated by [id number]: Raul Gonzalez on 05/15/19 11:[address] Patient Name: ANDI BRODY Encounter No: [id number] : 1935 Primary Insurance: MEDICARE A & B Anticipated DC Date: 05-15-2019 Planned Disposition: Assisted Living External Planned Provider:[facility] Discharge Planning Comments: CM RECEIVED CALL FROM PT'S LISTED EMERGENCY CONTACT, POWER OF REFINERY OPERATOR [employer], PEPE WILDER, . SHE WOULD LIKE PT TO HAVE OXYGEN AND RETURN TO THE [facility]. CM RECEIVED OXYGEN TESTING RESULT, PT QUALIFIES FOR HOME AND PORTABLE OXYGEN. IMPORTANT MESSAGE FROM MEDICARE LEFT WITH PT IN ROOM, DISCUSSED WITH PEPE WILDER VIA PHONE. CM CALLED [facility], , SPOKE TO JAE AND PROVIDED REFERRAL INFORMATION. CM FAXED REFERRAL TO [facility], . JAE ADVISED THEY WILL DELIVER PORTABLE OXYGEN TO HOSPITAL TODAY AND WILL ARRANGE HOME OXYGEN WHEN PT ARRIVES AT [facility] AFTER DISCHARGE. CM CALLED [facility], , SPOKE TO DANE AND LEFT MESSSAGE FROM [facility] OF PT'S PLANNED DC BACK TODAY WITH NEW OXYGEN. CM CALLED [facility], , SPOKE TO JER, NOTIFIED OF PLANNED DISCHARGE TODAY AND NEW OXYGEN FOR HOME HEALTH RESUMPTION. FOR DISCHARGE, NURSE REPORT TO BE CALLED TO THE [facility] AT [phone], REQUEST TRANSPORT WHEN NURSE REPORT IS CALLED; FAX DISCHARGE MEDICATION LIST AND INSTRUTIONS TO THE [facility] AT [phone]. FAX DISCHARGE INFORMATION TO [facility] AT [phone]. Graduate Assistant Athletic Trainer: Raul Gonzalez DCP- Discharge Planning Updated by [id number]: Raul Gonzalez on 05/15/19 6:[address] Patient Name: ANDI BRODY Encounter No: [id number] : 1935 Primary Insurance: MEDICARE A & B Anticipated DC Date: 05-15-2019 Planned Disposition: Assisted Living External Planned Provider: [facility] Discharge Planning Comments: CM FAXED HOSPITAL UPDATE TO [facility], ; CM FAXED HOSPITAL UPDATE TO [facility] AT [phone]. FOR DISCHARGE, NURSE REPORT TO BE CALLED TO THE [facility] AT [phone], REQUEST TRANSPORT WHEN NURSE REPORT IS CALLED; FAX DISCHARGE MEDICATION LIST AND INSTRUTIONS TO THE [facility] AT [phone]. NOTIFY [facility] AT [phone], FAX DISCHARGE INFORMATION TO [facility] AT [phone]. Graduate Assistant Athletic Trainer: Raul Gonzalez DCP- Discharge Planning Updated by [id number]: Raul Gonzalez on 05/13/19 1:[address] Patient Name: ANDI BRODY Admission Status: ER Accout number: [id number] Admission Date: 05-12-2019 : 1935 Admission Diagnosis: Attending: KITA SKINNER Current LOS: 1 Anticipated DC Date: Planned Disposition: Assisted Living - [facility] Primary Insurance: MEDICARE A & B PLANNED EXTERNAL PROVIDER: [facility] Discharge Planning Comments: CM RECEIVED ORDER FOR INPATIENT REHAB PRESCREENING. CM ATTEMPTED TO MEET WITH PT IN ROOM TO DISCUSS DISCHARGE PLANNING AND NEEDS, PT WAS NOT ABLE TO PROVIDE INFORMATION NEEDED; CM CALLED PT'S LISTED EMERGENCY CONTACT, POWER OF REFINERY OPERATOR [employer], PEPE WILDER, . PT LIVES AT [facility] [place]. PT USES A STANDARD WALKER. PT HAS NOT MEDICAL EQUIPMENT PROVIDER PREFERENCE. PT HAS [facility] FOR THERAPY SERVICES. PT HAS [facility] CALL[facility] PT'S PRIMARY CARE PHYSICIAN. [facility] DECLINED INPATIENT REHAB OR SENIOR CARE FACILITY FOR REHAB. [facility] REPORTS PT WILL RETURN TO THE [facility] SOON POSSIBLE TO FAMILIAR SURROUNDINGS AND ROUTINE. [facility] REPORTS PT IS MENTALLY ILL AND THE LONGER SHE IS AWAY FROM WHAT IS FAMILIAR IS BAD FOR HER MOTHER. PEPE WOULD LIKE [facility] FOR HOME HEALTH AND ALSO WANTS PT TESTED FOR HOME AND PORTABLE OXYGEN. IF PT QUALIFIES, [facility] HAS NO PREFERENCE ON MEDICAL EQUIPMENT PROVIDER. CHOICE COMPLETED FOR [facility] AND NO PROVIDER PREFERENCE FOR MEDICAL EQUIPMENT PROVIDER. CM NOTIFIED [facility]. CM CALLED [facility], , [facility], NOTIFIED OF ABOVE INFORMATION. FOR DISCHARGE, NURSE REPORT TO BE CALLED TO THE [facility] AT [phone], REQUEST TRANSPORT WHEN NURSE REPORT IS CALLED; FAX DISCHARGE MEDICATION LIST AND INSTRUTIONS TO THE [facility] AT [phone]. NOTIFY [facility] AT [phone], FAX DISCHARGE INFORMATION TO [facility] AT [phone]. Graduate Assistant Athletic Trainer: Raul Gonzalez DCPIA - Discharge Planning Initial Assessment Updated by [id number]: Raul Gonzalez on 05/13/19 2:12 pm * Is the patient Alert and Oriented? Yes * How many steps to enter\exit or inside your home? NONE * PCP DR. BANERJEE * Pharmacy [facility] * Preadmission Environment Memory Care * Other Environment [facility] * Facility Name [facility] * ADLs Partial Dependent * Partial ADLs (Assistance needed) Bathing Medication Management * Equipment Walker * Other Equipment NO MEDICAL EQUIPMENT PROVIDER PREFERENCE * List name and contact numbers for known caregivers / representatives who currently or will assist patient after discharge: Estebna WILDER, DTR/POEric, * Verbal permission to speak to the caregivers and representatives has been obtained from the patient. N/A * Community resources currently utilized Home Health * Please name any agencies selected above. [facility] * Additional services required to return to the preadmission environment? No * Can the patient safely return to the preadmission environment? Yes * Has this patient been hospitalized within the prior 30 days at any hospital? No Coverage Notice Reviewer: [id number] Starla Gonzalez Notice Issued Date-Time: 05/13/2019 12:40 Notice Type: Patient Choice Letter Notice Delivered To: Family Member Relationship to Patient: Daughter Cna Name: PEPE WILDER Delivery Method: PHONE - Phone Thea Days: Prior Verbal Notification: Recipient Understood Notice: Yes Recipient Signature: Yes Med Rec Note Co-signed by Attending: Coverage Notice Comment: [facility], NO MEDICAL EQUIPMENT PROVIDER PREFERENCE. Reviewer: [id number] Starla Gonzalez Notice Issued Date-Time: 05/15/2019 12:30 Notice Type: IM Discharge Notice Notice Delivered To: Family Member Relationship to Patient: Daughter Cna Name: PEPE WILDER Delivery Method: PHONE - Phone Thea Days: Prior Verbal Notification: Recipient Understood Notice: Yes Recipient Signature: Med Rec Note Co-signed by Attending: Coverage Notice Comment: PATIENT UNABLE TO SIGN Last DP export: 05/17/19 8:14 am Patient Name: ANDI BRODY Page [id number] at 1112 All edits/amendments must be made on the electronic document DICTATION DATE: 05/17/19 1112 SAFE TECHNICIAN: JERROD 05/17/19 1112 RPT#: [id number] DC DATE: STATUS: ADM IN [facility] [address] [facility] [place] [address] END OF REPORT
--- NOTE | 2019-05-17 11:27 | MORECARE ---
CASE MANAGEMENT DISCHARGE SUMMARY PATIENT: ANDI BRODY UNIT: [id number] ADM DATE: 05/13/19 AGE: 84 : 33 SEX: F ROOM/BED: D.8072 AUTHOR: ROWENADOC PHYSICIAN: REFERRING PHYSICIAN: KITA SKINNER MD DATE OF SERVICE: 05/17/19 Discharge Plan Patient Name: ANDI BRODY Facility: [facility]:[place] : 1935 Planned Disposition: Assisted Living Anticipated Discharge Date: 05/17/19 Discharge Date: Expected LOS: 4 Initial Reviewer: [email or web address] Initial Review Date: 05/13/2019 Generated: 05/17/19 12:27 pm Comments DCP- Discharge Planning Updated by [id number]: Raul Gonzalez on 05/17/19 10:[address] Patient Name: ANDI BRODY Encounter No: [id number] : 1935 Primary Insurance: MEDICARE A & B Anticipated DC Date: 05-17-2019 Planned Disposition: Assisted Living External Planned Provider: [facility] WITH [facility] Discharge Planning Comments: CM RECEIVED DISCHARGE ORDER, FAXED DISCHARGE MEDICATION LIST AND DISCHARGE ORDER TO THE [facility] AT [phone]. CM NOTIFIED NURSE PELAEZ OF THE [facility] WHO INFORMED CM THAT VAN WILL BE ARRANGED WHEN NURSE REPORT IS RECEIVED. CM FAXED DISCHARGE INFORMATION TO [facility] AT [phone]. CM CALLED AND NOTIFIED PEPE WILDER, PT'S DAUGHTER, OF DISCHARGE, WHO IS IN AGREEMENT WITH DISCHARGE TO THE [facility] SOON POSSIBLE. NURSE REPORT TO BE CALLED TO THE [facility] AT [phone], REQUEST TRANSPORT WHEN NURSE REPORT IS CALLED; [employer] Salesperson: Raul Gonzalez DCP- Discharge Planning Updated by [id number]: Raul Gonzalez on 05/16/19 4:[address] Patient Name: ANDI BRODY Encounter No: [id number] : 1935 Primary Insurance: MEDICARE A & B Anticipated DC Date: 05-17-2019 Planned Disposition: Assisted Living WITH HOME HEALTH External Planned Provider:[facility] WITH [facility] Discharge Planning Comments: CM CALLED AND SPOKE TO JAE AT THE [facility], PT WILL NOT REQUIRE REASSESSMENT. CM SPOKE TO NURSE ANI RAYMOND AT THE [facility], PROVIDED UPDATE; ANI REQUESTED HOME HEALTH WITH [facility] FOR PHYSICAL THERAPY, THEY WILL NEED NURSE REPORT IN THE MORNING AND WILL ARRANGE VAN SOFTWARE DEVELOPMENT ANALYST. OXYGEN HAS BEEN DELIVERED FROM [facility] AT THE [facility] FOR PT. CM CALLED [facility], , SPOKE TO ALEX, NOTIFIED OF PLANNED DISCHARGE TOMORROW AND NEW OXYGEN FOR HOME HEALTH AND ELIQUIS MEDICATION FOR RESUMPTION OF HOME HEALTH SERVICES. FOR DISCHARGE, NURSE REPORT TO BE CALLED TO THE [facility] AT [phone], REQUEST TRANSPORT WHEN NURSE REPORT IS CALLED; FAX DISCHARGE MEDICATION LIST AND INSTRUTIONS TO THE [facility] AT [phone]. FAX DISCHARGE INFORMATION TO [facility] AT [phone]. [employer] Salesperson: Raul Gonzalez DCP- Discharge Planning Updated by [id number]: Raul Gonzalez on 05/15/19 11:[address] Patient Name: NADI BRODY Encounter No: [id number] : 1935 Primary Insurance: MEDICARE A & B Anticipated DC Date: 05-15-2019 Planned Disposition: Assisted Living External Planned Provider:[facility] Discharge Planning Comments: CM RECEIVED CALL FROM PT'S LISTED EMERGENCY CONTACT, POWER OF FUSE MAKER, PEPE WILDER, . SHE WOULD LIKE PT TO HAVE OXYGEN AND RETURN TO THE [facility] IN [facility]. CM RECEIVED OXYGEN TESTING RESULT, PT QUALIFIES FOR HOME AND PORTABLE OXYGEN. IMPORTANT MESSAGE FROM MEDICARE LEFT WITH PT IN ROOM, DISCUSSED WITH PEPE WILDER VIA PHONE. CM CALLED [facility], , SPOKE TO JAE AND PROVIDED REFERRAL INFORMATION. CM FAXED REFERRAL TO [facility], . JAE ADVISED THEY WILL DELIVER PORTABLE OXYGEN TO HOSPITAL TODAY AND WILL ARRANGE HOME OXYGEN WHEN PT ARRIVES AT [facility] AFTER DISCHARGE. CM CALLED [facility], , SPOKE TO DANE AND LEFT MESSSAGE FROM RAVI OF PT'S PLANNED DC BACK TODAY WITH NEW OXYGEN. CM CALLED [facility], , SPOKE TO JER, NOTIFIED OF PLANNED DISCHARGE TODAY AND NEW OXYGEN FOR HOME HEALTH RESUMPTION. FOR DISCHARGE, NURSE REPORT TO BE CALLED TO THE [facility] AT [phone], REQUEST TRANSPORT WHEN NURSE REPORT IS CALLED; FAX DISCHARGE MEDICATION LIST AND INSTRUTIONS TO THE [facility] AT [phone]. FAX DISCHARGE INFORMATION TO [facility] AT [phone]. [employer] Salesperson: Raul Gonzalez DCP- Discharge Planning Updated by [id number]: Raul Gonzalez on 05/15/19 6:[address] Patient Name: ANDI BRODY Encounter No: [id number] : 1935 Primary Insurance: MEDICARE A & B Anticipated DC Date: 05-15-2019 Planned Disposition: Assisted Living External Planned Provider: [facility] Discharge Planning Comments: CM FAXED HOSPITAL UPDATE TO [facility], ; CM FAXED HOSPITAL UPDATE TO [facility] AT [phone]. FOR DISCHARGE, NURSE REPORT TO BE CALLED TO THE [facility] AT [phone], REQUEST TRANSPORT WHEN NURSE REPORT IS CALLED; FAX DISCHARGE MEDICATION LIST AND INSTRUTIONS TO THE [facility] AT [phone]. NOTIFY [facility] AT [phone], FAX DISCHARGE INFORMATION TO [facility] AT [phone]. [employer] Salesperson: Raul Gonzalez DCP- Discharge Planning Updated by [id number]: Raul Gonzalez on 05/13/19 1:[address] Patient Name: ANDI BRODY Admission Status: ER Accout number: [id number] Admission Date: 05-12-2019 : 1935 Admission Diagnosis: Attending: KITA SKINNER Current LOS: 1 Anticipated DC Date: Planned Disposition: Assisted Living - [facility] Primary Insurance: MEDICARE A & B PLANNED EXTERNAL PROVIDER: [facility] Discharge Planning Comments: CM RECEIVED ORDER FOR INPATIENT REHAB PRESCREENING. CM ATTEMPTED TO MEET WITH PT IN ROOM TO DISCUSS DISCHARGE PLANNING AND NEEDS, PT WAS NOT ABLE TO PROVIDE INFORMATION NEEDED; CM CALLED PT'S LISTED EMERGENCY CONTACT, POWER OF FUSE MAKER, PEPE WILDER, . PT LIVES AT [facility] IN [facility]. PT USES A STANDARD WALKER. PT HAS NOT MEDICAL EQUIPMENT PROVIDER PREFERENCE. PT HAS [facility] FOR THERAPY SERVICES. PT HAS [facility] CALLS MISHA PT'S PRIMARY CARE PHYSICIAN. [facility]J DECLINED INPATIENT REHAB OR SNF FACILITY FOR REHAB. PJ REPORTS PT WILL RETURN TO THE [facility] SOON POSSIBLE TO FAMILIAR SURROUNDINGS AND ROUTINE. PEPE REPORTS PT IS MENTALLY ILL AND THE LONGER SHE IS AWAY FROM WHAT IS FAMILIAR IS BAD FOR HER MOTHER. PEPE WOULD LIKE [facility]ED FOR HOME HEALTH AND ALSO WANTS PT TESTED FOR HOME AND PORTABLE OXYGEN. IF PT QUALIFIES, PEPE HAS NO PREFERENCE ON MEDICAL EQUIPMENT PROVIDER. CHOICE COMPLETED FOR [facility] AND NO PROVIDER PREFERENCE FOR MEDICAL EQUIPMENT PROVIDER. CM NOTIFIED GERRY CAST. CM CALLED [facility], , SPOKE TO [facility], NOTIFIED OF ABOVE INFORMATION. FOR DISCHARGE, NURSE REPORT TO BE CALLED TO THE [facility] AT [phone], REQUEST TRANSPORT WHEN NURSE REPORT IS CALLED; FAX DISCHARGE MEDICATION LIST AND INSTRUTIONS TO THE [facility] AT [phone]. NOTIFY [facility] AT [phone], FAX DISCHARGE INFORMATION TO [facility] AT [phone]. [employer] Salesperson: Raul Gonzalez DCPIA - Discharge Planning Initial Assessment Updated by [id number]: Raul Gonzalez on 05/13/19 2:12 pm * Is the patient Alert and Oriented? Yes * How many steps to enter\exit or inside your home? NONE * PCP DR. BANERJEE * Pharmacy [facility] * Preadmission Environment [facility] * Other Environment [facility] * Facility Name [facility] * ADLs Partial Dependent * Partial ADLs (Assistance needed) Bathing Medication Management * Equipment Walker * Other Equipment NO MEDICAL EQUIPMENT PROVIDER PREFERENCE * List name and contact numbers for known caregivers / representatives who currently or will assist patient after discharge: Esteban WILDER, DTR/POA, * Verbal permission to speak to the caregivers and representatives has been obtained from the patient. N/A * Community resources currently utilized Home Health * Please name any agencies selected above. [facility] * Additional services required to return to the preadmission environment? No * Can the patient safely return to the preadmission environment? Yes * Has this patient been hospitalized within the prior 30 days at any hospital? No Coverage Notice Reviewer: [id number] Starla Gonzalez Notice Issued Date-Time: 05/13/2019 12:40 Notice Type: Patient Choice Letter Notice Delivered To: Family Member Relationship to Patient: Daughter Hospice Director Name: PJ MEÑO Delivery Method: PHONE - Phone Thea Days: Prior Verbal Notification: Recipient Understood Notice: Yes Recipient Signature: Yes Med Rec Note Co-signed by Attending: Coverage Notice Comment: [facility], NO MEDICAL EQUIPMENT PROVIDER PREFERENCE. Reviewer: [id number] Starla Gonzalez Notice Issued Date-Time: 05/15/2019 12:30 Notice Type: IM Discharge Notice Notice Delivered To: Family Member Relationship to Patient: Daughter Hospice Director Name: PEPE MEÑO Delivery Method: PHONE - Phone Thea Days: Prior Verbal Notification: Recipient Understood Notice: Yes Recipient Signature: Med Rec Note Co-signed by Attending: Coverage Notice Comment: PATIENT UNABLE TO SIGN Last DP export: 05/17/19 10:12 am Patient Name: ANDI BRODY Page [id number] at 1127 All edits/amendments must be made on the electronic document DICTATION DATE: 05/17/191126 MARINE SPECIALIST: JERROD 05/17/19 1127 RPT#: [id number] [place] DATE: STATUS: ADM IN [facility] [address] [place] [address] END OF REPORT
[2019-05-17] MEDS ORDERED: MAG-OX 400 MG400 MG PO (12:59)
--- NOTE | 2019-05-17 15:07 | NUR ---
IV AND TELEMETRY DCD. DC REPORT CALLED TO [facility]. HOME [facility] AT BS. [facility] BY ANGIE CAMPBELL
--- NOTE | 2019-05-17 16:25 | NUR ---
OT NOTE: PT COMPLETED BED MOB WITH MIN A. PT COMPLETED ADL MOB WITH CGA. PT COMPLETED HAIR GROOMING WITH SET UP-MIN A. PT COMPLETED FACE WASH WITH SET UP. PT STATED THE BED WAS HURTING HER NECK. HOWEVER, PT REFUSED TO SIT IN CHAIR. THANK YOU, MALKA BARBOSA
== END 2019-05-17 15:08 | disposition home or self-care (01) | DRG 280 ==
LOC: D.ER 17:13 → OBSVTIME 19:13 → D.M2 19:13
PROVIDERS: Emergency Medicine; Family Medicine; Internal Medicine Interventional Cardiology; ADMIT Internal Medicine Nephrology; ATTEND Internal Medicine Nephrology
PROC: B2151ZZ Fluoroscopy of Left Heart using Low Osmolar Contrast (ICD-10-PCS; 2019-05-13)
PROC: 4A023N7 Measurement of Cardiac Sampling and Pressure, Left Heart, Percutaneous Approach (ICD-10-PCS; 2019-05-13)
PROC: B2111ZZ Fluoroscopy of Multiple Coronary Arteries using Low Osmolar Contrast (ICD-10-PCS; principal; 2019-05-13 08:45)
DX: I21.4 Non-ST elevation (NSTEMI) myocardial infarction (principal); I26.99 Other pulmonary embolism without acute cor pulmonale; J96.01 Acute respiratory failure with hypoxia; N17.9 Acute kidney failure, unspecified; J98.11 Atelectasis; J44.1 Chronic obstructive pulmonary disease with (acute) exacerbation; I48.0 Paroxysmal atrial fibrillation; E11.65 Type 2 diabetes mellitus with hyperglycemia; I10 Essential (primary) hypertension; F03.90 Unspecified dementia, unspecified severity, without behavioral disturbance, psychotic disturbance, mood disturbance, and anxiety; D64.9 Anemia, unspecified; F41.9 Anxiety disorder, unspecified; J30.9 Allergic rhinitis, unspecified; I34.0 Nonrheumatic mitral (valve) insufficiency; R94.31 Abnormal electrocardiogram [ECG] [EKG]; I25.10 Atherosclerotic heart disease of native coronary artery without angina pectoris; E78.5 Hyperlipidemia, unspecified

== ENCOUNTER 2019-10-06 16:57 | Inpatient (IN) | payer MEDICARE, BC ==
[~2019-10-06] VITALS: Ht 162.6 cm; Wt 70.3 kg
[~2019-10-06 16:57] MED LIST changes: +BETAPACE 80 MG80 MG PO; +CARDIZEM60 MG PO; +ELIQUIS5 MG PO; +MAG-OX 400 MG400 MG PO
[2019-10-06 17:17] VITALS: BP 125/56
[2019-10-06 17:25] LABS: BASOPHILS 0.4 % (0-2); EOSINOPHILS 3.3 % (0-7); HEMATOCRIT 36.9 % (36.0-48.0); HEMOGLOBIN 11.6 g/dL (12-16); IMMATURE GRANULOCYTES 0.2 % (0-5); LYMPHOCYTES 31.8 % (15-50); MCH 28.7 pg (26.0-34.0); MCHC 31.4 g/dL (31.0-37.0); MCV 91.3 fL (80.0-100.0); MEAN PLATELET VOLUME 11.3 fL (7.4-10.4); MONOCYTES 11.1 % (2-11); NEUTROPHILS 53.2 % (40-80); PLATELET COUNT 193 10x3/uL (130-400); RBC 4.04 10x6/uL (4.00-5.40); WBC 5.5 10x3/uL (4.8-10.8)
[2019-10-06 17:34] LABS: APTT 33.7 SECONDS (22.8-39.4); INR 1.37 (0.85-1.17); PROTIME 16.3 SECONDS (11.6-15.0)
[2019-10-06 17:39] LABS: CALC OSMOLALITY 285 mosm/kg (275-300); CALCIUM 9.1 mg/dL (8.5-10.1); CHLORIDE - SERUM 104 mmol/L (98-107); CREATININE - SERUM 1.1 mg/dL (0.6-1.3); GLUCOSE 105 mg/dL (74-106); POTASSIUM - SERUM 3.9 mmol/L (3.5-5.1); SODIUM 143 mmol/L (136-145); UREA NITROGEN 16 mg/dL (7-18); eGFR NON AFRICAN AMERICAN 50 mL/min (90-120)
[2019-10-06 17:49] LABS: ALBUMIN 3.1 g/dL (3.4-5.0); ALKALINE PHOSPHATASE 51 U/L (46-116); ALT (SGPT) 23 U/L (10-68); BILIRUBIN - TOTAL 0.34 mg/dL (0.2-1.3); CKMB 2.9 U/L (0.0-3.6); CREATINE KINASE 208 UL (21-215); MAGNESIUM - SERUM 1.7 mg/dL (1.8-2.4); PROTEIN - SERUM 6.9 g/dL (6.4-8.2)
[2019-10-06 17:53] LABS: TROPONIN-I < 0.017 ng/mL (0.000-0.060)
[2019-10-06 18:51] VITALS: BP 106/73
--- NOTE | 2019-10-06 18:59 | NUR ---
PT RESTING ON BED. NO VISITORS PRESENT. PT DENIES NEEDS AT THIS TIME.
[2019-10-06 19:00] VITALS: BP 119/43
--- NOTE | 2019-10-06 20:00 | NUR ---
PT RESTING ON BED. NO S/S OF ACUTE DISTRESS NOTED.
--- NOTE | 2019-10-06 21:00 | NUR ---
PT SLEEPING. O2 IN PLACE, O2 SAT 97%. NO S/S OF ACUTE DISTRESS NOTED.
[2019-10-06 22:22] VITALS: BP 109/39; BMI 26.6
--- NOTE | 2019-10-06 22:31 | NUR ---
ADMIT ASSESSMENT COMPLETE. PT VERBALIZES NO PAIN. LEFT SIDED WEAKNESS FROM PREVIOUS STROKE. PT ABLE TO ANSWERS SOME QUESTIONS APPROPRIATELY. GENERALIZED TWITCHING NOTED. PT POOR HISTORIAN.
[2019-10-06 23:06] LABS: CKMB 1.8 U/L (0.0-3.6); CREATINE KINASE 172 UL (21-215); TROPONIN-I < 0.017 ng/mL (0.000-0.060)
[2019-10-07 00:30] VITALS: BP 145/64
--- NOTE | 2019-10-07 01:41 | NUR ---
ADDED PATIENT TO TELE WAIT LIST
[2019-10-07 05:31] VITALS: BP 101/60; BP 151/70
[2019-10-07 06:20] LABS: CKMB 1.9 U/L (0.0-3.6); CREATINE KINASE 173 UL (21-215); TROPONIN-I 0.017 ng/mL (0.000-0.060)
--- NOTE | 2019-10-07 06:45 | NUR ---
CONFUSED, RESTING IN BED. NO C/O PAIN. NO S/S OF ACUTE DISTRESS NOTED. INCONTINENT OF B&B. ON 2L O2, NC. IV TO RIGHT HAND, SL. SITE PATENT WITHOUT REDNESS OR SWELLING. DENIES ANY NEEDS AT THIS TIME. MICHAEL ALARM ON. WILL CONTINUE TO MONITOR.
[2019-10-07 08:25] VITALS: BP 149/57
[2019-10-07 13:07] VITALS: BP 123/71
[2019-10-07 13:33] VITALS: Ht 162.6 cm; Wt 70.3 kg
--- NOTE | 2019-10-07 15:48 | NUR ---
I have reviewed this patient and I concur with the Shift Assessment completed by the Licensed Practical Nurse today this shift.
[2019-10-07 16:40] VITALS: BP 109/59
--- NOTE | 2019-10-07 19:24 | NUR ---
PATIENT RESTING IN BED WITH NO S/S OF DISTRESS. BED IN LOWEST POSITION AND CALL LIGHT WITHIN REACH. REORIENTED PATIENT TO PLACE AND TIME. ENCOURAGED THE PATIENT TO CALL IF SHE HAS NEEDS. WILL CONTINUE TO MONITOR.
[2019-10-07 20:30] VITALS: BP 122/54
[2019-10-08 00:22] VITALS: BP 98/59
[2019-10-08 04:45] VITALS: BP 149/68
[2019-10-08 05:35] LABS: BASOPHILS 0.3 % (0-2); EOSINOPHILS 0.8 % (0-7); HEMATOCRIT 37.5 % (36.0-48.0); HEMOGLOBIN 11.9 g/dL (12-16); IMMATURE GRANULOCYTES 0.1 % (0-5); LYMPHOCYTES 15.2 % (15-50); MCH 28.8 pg (26.0-34.0); MCHC 31.7 g/dL (31.0-37.0); MCV 90.8 fL (80.0-100.0); MONOCYTES 12.6 % (2-11); PLATELET COUNT 198 10x3/uL (130-400); RBC 4.13 10x6/uL (4.00-5.40); RDW 13.1 % (11.5-14.5)
[2019-10-08 05:43] LABS: ANION GAP 16.3 mmol/L (8-16); CALCIUM 9.4 mg/dL (8.5-10.1); CARBON DIOXIDE 27.4 mmol/L (21.0-32.0); CREATININE - SERUM 1.1 mg/dL (0.6-1.3); POTASSIUM - SERUM 3.7 mmol/L (3.5-5.1)
--- NOTE | 2019-10-08 05:43 | NUR ---
PATIENT PULLED IV TO RIGHT HAND OUT. RESITED IV TO THE LEFT FA WITH A 20G ON THE FIRST ATTEMPT.
--- NOTE | 2019-10-08 06:45 | NUR ---
CONFUSED AT TIMES. ALERT TO SELF ONLY. NO C/O PAIN. NO S/S OF ACUTE DISTRESS NOTED. INCONTINENT OF B&B. MICHAEL ALARM ON. O2 @ 2L, NC. IV TO LEFT FOREARM, SL. SITE PATENT WITHOUT REDNESS OR SWELLING. DENIES ANY NEEDS AT THIS TIME. CALL LIGHT IN REACH. WILL CONTINUE TO MONITOR.
[2019-10-08 06:51] LABS: WBC 7.3 10x3/uL (4.8-10.8)
--- NOTE | 2019-10-08 07:56 | NUR ---
PATIENT HR 135 PER CHART, TELEMETRY ORDERED ON 10/06 CALLED MONITOR STATION SPOKE WITH NEAL SHE STATED THAT SHE WAS NOT ON ONE. I ASKED IF THERE WAS ONE AVAIBLE AND SHE STATED THAT SHE ONLY HAD 3. EXPLAINED TO HER THE V/S AND HX. SHE WOULD LET THE PATIENT HAVE ONE. I LET THE LENCHO THE PATIENT'S NURSE KNOW.
[2019-10-08 09:19] VITALS: BP 130/72
--- NOTE | 2019-10-08 12:22 | MORECARE ---
CASE MANAGEMENT DISCHARGE SUMMARY PATIENT: ANDI BRODY UNIT: [id number] ADM DATE: 10/07/19 AGE: 84 : 33 SEX: F ROOM/BED: D.2219 AUTHOR: HANSA GUAMAN PHYSICIAN: REFERRING PHYSICIAN: KITA SKINNER MD DATE OF SERVICE: 10/08/19 Discharge Plan Patient Name: ANDI BRODY Facility: [facility]:[place] : 1935 Planned Disposition: Assisted Living Anticipated Discharge Date: Discharge Date: Expected LOS: Initial Reviewer: [id number] Initial Review Date: 10/06/2019 Generated: 10/08/19 1:21 pm DCPIA - Discharge Planning Initial Assessment Updated by [email or web address]: Brigette Ojeda on 10/08/19 12:18 pm * Is the patient Alert and Oriented? Yes * How many steps to enter\exit or inside your home? * [facility]CP [facility] * Pharmacy [facility] * Preadmission Environment Assisted Living * Facility Name [facility] * ADLs Partial Dependent * Partial ADLs (Assistance needed) Medication Management * Equipment Oxygen Walker * List name and contact numbers for known caregivers / representatives who currently or will assist patient after discharge: EPPE WILDER [phone] * Community resources currently utilized Assisted Living * Please name any agencies selected above. [facility] * Additional services required to return to the preadmission environment? No * Can the patient safely return to the preadmission environment? Yes * Has this patient been hospitalized within the prior 30 days at any hospital? No Coverage Notice Reviewer: [id number] Starla Garcia Notice Issued Date-Time: 10/06/2019 18:51 Notice Type: Medicare Outpatient Observation Notice Notice Delivered To: Patient Relationship to Patient: Self Offline Cutter Name: Andi Mike Delivery Method: HAND - Hand Delivered Thea Days: Prior Verbal Notification: Recipient Understood Notice: Recipient Signature: Yes Med Rec Note Co-signed by Attending: Coverage Notice Comment: CALDERON delivered to and signed by patient. Original given to patient and one placed on chart. Patient Name: ANDI BRODY Page [phone] at 1222 All edits/amendments must be made on the electronic document DICTATION DATE: 10/08/19 122 ELECTROMECHANISMS DESIGN DRAFTER: JREROD 10/08/19 1221 RPT#: [id number] [place] DATE: STATUS: ADM IN [facility] [address] [facility] [place] [address] END OF REPORT
--- NOTE | 2019-10-08 12:30 | MORECARE ---
CASE MANAGEMENT DISCHARGE SUMMARY PATIENT: ANDI BRODY UNIT: [id number] ADM DATE: 10/07/19 AGE: 84 : 33 SEX: F ROOM/BED: D.2219 AUTHOR: HANSA GUAMAN PHYSICIAN: REFERRING PHYSICIAN: KITA SKINNER MD DATE OF SERVICE: 10/08/19 Discharge Plan Patient Name: ANDI BRODY Facility: [facility]:[place] : 1935 Planned Disposition: Assisted Living Anticipated Discharge Date: Discharge Date: Expected LOS: Initial Reviewer: [email or web address] Initial Review Date: 10/06/2019 Generated: 10/08/19 1:29 pm Comments DCP- Discharge Planning Updated by [email or web address]: Brigette Ojeda on 10/08/19 11:[address] Patient Name: ANDI BRODY Admission Status: ER Accout number: [id number] Admission Date: 10-07-2019 : 1935 Admission Diagnosis: Attending: KITA SKINNER Current LOS: 1 Anticipated DC Date: Planned Disposition: Assisted Living Primary Insurance: MEDICARE A & B Discharge Planning Comments: CM RECEIVED A CALL FROM DAUGHTER, PEPE WILDER ([phone]) TO DISCUSS HER MOTHER DISCHARGING BACK TO THE [facility] AT [facility]. SHE STATED THAT HER MOTHER IS AT THE [facility] WITH THE [facility] WHERE SHE PLANS ON HER RETURNING AT [facility]. SHE STATED THAT HER MOTHER IS INDEPENDENT WITH HER CARE. SHE HAS A WALKER AND A WEARS HOME O2 AT NIGHT, BUT COULD NOT REMEMBER WHAT COMPANY. SHE STATED THAT HER MOTHER HAS A LONG HX OF MENTAL ILLNESS AND DEMENTIA AND THE LONGER THAT SHE STAYS HERE THE WORSE SHE WILL GET. SHE STATED THAT IF HER MOTHER NEEDS HOME HEALTH, THAT HOUSE CALLS WILL ORDER IT. SHE ALSO STATED THAT HER MOTHER TAKES ELIQUIS, BUT HER NEW INSURANCE SHE MAKES 100.00 TOO MUCH AND THEY WILL NOT COVER THIS MEDICATION ANYMORE AND WILL NEED A DIFFERENT MED THAT IS SIMILAR TO THIS. I WILL LET THE MD KNOW OF THIS. CM WILL CONTINUE TO FOLLOW AND ASSIST WITH DC PLANNING NEEDED Spa Manager: Brigette Ojeda DCPIA - Discharge Planning Initial Assessment Updated by [id number]: Brigette Ojeda on 12/31/19 12:18 pm * Is the patient Alert and Oriented? Yes * How many steps to enter\exit or inside your home? * [facility]CP [facility] * Pharmacy [facility] * Preadmission Environment Assisted Living * Facility Name [facility] * ADLs Partial Dependent * Partial ADLs (Assistance needed) Medication Management * Equipment Oxygen Walker * List name and contact numbers for known caregivers / representatives who currently or will assist patient after discharge: PEPE WILDER [phone] * Community resources currently utilized Assisted Living * Please name any agencies selected above. [facility] * Additional services required to return to the preadmission environment? No * Can the patient safely return to the preadmission environment? Yes * Has this patient been hospitalized within the prior 30 days at any hospital? No Coverage Notice Reviewer: [id number] Starla Garcia Notice Issued Date-Time: 10/06/2019 18:51 Notice Type: Medicare Outpatient Observation Notice Notice Delivered To: Patient Relationship to Patient: Self Agriscience Instructor Name: Andi Mike Delivery Method: HAND - Hand Delivered Thea Days: Prior Verbal Notification: Recipient Understood Notice: Recipient Signature: Yes Med Rec Note Co-signed by Attending: Coverage Notice Comment: CALDERON delivered to and signed by patient. Original given to patient and one placed on chart. Last DP export: 10/08/19 11:22 Patient Name: ANDI BRODY Page [id number] at 1230 All edits/amendments must be made on the electronic document DICTATION DATE: 10/08/19 122 TEM[place] MILL OPERATOR: JERROD 10/08/19 1229 RPT#: [id number] DC DATE: STATUS: ADM IN [facility] [address] [place] [address] END OF REPORT
[2019-10-08 13:53] VITALS: BP 120/67
[2019-10-08] MEDS ORDERED: [UNRECOGNIZED DRUG - CODE] TRANSDERM (16:19)
[2019-10-08 18:05] VITALS: BP 115/70
--- NOTE | 2019-10-08 18:32 | NUR ---
I have reviewed this patient and I concur with the Shift Assessment completed by the Licensed Practical Nurse today this shift.
--- NOTE | 2019-10-08 18:40 | NUR ---
RESTING IN BED, EYES CLOSED. RESPIRATIONS EVEN AND UNLABORED. DISCHARGING BACK TO [facility], VIA AMBULANCE. UNABLE TO GO OVER DISCHARGE INSTRUCTIONS WITH PATIENT, CONFUSED. DISCONTINUED IV, CATHETER TIP INTACT.
--- NOTE | 2019-10-12 09:44 | MORECARE ---
CASE MANAGEMENT DISCHARGE SUMMARY PATIENT: ANDI BRODY UNIT: [id number] ADM DATE: 10/07/19 AGE: 84 : 33 SEX: F ROOM/BED: D.2219 AUTHOR: HANSA GUAMAN PHYSICIAN: REFERRING PHYSICIAN: KITA SKINNER MD DATE OF SERVICE: 10/12/19 Discharge Plan Patient Name: ANDI BRODY Facility: [facility]:[place] : 1935 Planned Disposition: Assisted Living Anticipated Discharge Date: Discharge Date: 10/08/2019 Expected LOS: Initial Reviewer: [email or web address] Initial Review Date: 10/06/2019 Generated: 10/12/19 10:43 am Comments DCP- Discharge Planning Updated by [id number]: Brigette Ojeda on 10/08/19 11:[address] Patient Name: ANDI BRODY Admission Status: ER Accout number: [id number] Admission Date: 10-07-2019 : 1935 Admission Diagnosis: Attending: KITA SKINNER Current LOS: 1 Anticipated DC Date: Planned Disposition: Assisted Living Primary Insurance: MEDICARE A & B Discharge Planning Comments: CM RECEIVED A CALL FROM DAUGHTERPEPE ([phone]) TO DISCUSS HER MOTHER DISCHARGING BACK TO THE [facility] AT [facility]. SHE STATED THAT HER MOTHER IS AT THE [facility] L[facility]ING WITH THE [facility] WHERE SHE PLANS ON HER RETURNING AT [facility]. SHE STATED THAT HER MOTHER IS INDEPENDENT WITH HER CARE. SHE HAS A WALKER AND A WEARS HOME O2 AT NIGHT, BUT COULD NOT REMEMBER WHAT COMPANY. SHE STATED THAT HER MOTHER HAS A LONG HX OF MENTAL ILLNESS AND DEMENTIA AND THE LONGER THAT SHE STAYS HERE THE WORSE SHE WILL GET. SHE STATED THAT IF HER MOTHER NEEDS HOME HEALTH, THAT HOUSE CALLS WILL ORDER IT. SHE ALSO STATED THAT HER MOTHER TAKES ELIQUIS, BUT HER NEW INSURANCE SHE MAKES 100.00 TOO MUCH AND THEY WILL NOT COVER THIS MEDICATION ANYMORE AND WILL NEED A DIFFERENT MED THAT IS SIMILAR TO THIS. I WILL LET THE MD KNOW OF THIS. CM WILL CONTINUE TO FOLLOW AND ASSIST WITH DC PLANNING NEEDED Retail Merchandiser: Brigette Ojeda DCPIA - Discharge Planning Initial Assessment Updated by [id number]: Brigette Ojeda on 10/08/19 12:18 pm * Is the patient Alert and Oriented? Yes * How many steps to enter\exit or inside your home? * [facility]CP [facility] * Pharmacy [facility] * Preadmission Environment Assisted Living * Facility Name [facility] * ADLs Partial Dependent * Partial ADLs (Assistance needed) Medication Management * Equipment Oxygen Walker * List name and contact numbers for known caregivers / representatives who currently or will assist patient after discharge: PEPE WILDER [phone] * Community resources currently utilized Assisted Living * Please name any agencies selected above. [facility] * Additional services required to return to the preadmission environment? No * Can the patient safely return to the preadmission environment? Yes * Has this patient been hospitalized within the prior 30 days at any hospital? No Coverage Notice Reviewer: [email or web address] Starla Garcia Notice Issued Date-Time: 10/06/2019 18:51 Notice Type: Medicare Outpatient Observation Notice Notice Delivered To: Patient Relationship to Patient: Self Dot Compliance Specialist Name: Andi Mike Delivery Method: HAND - Hand Delivered Thea Days: Prior Verbal Notification: Recipient Understood Notice: Recipient Signature: Yes Med Rec Note Co-signed by Attending: Coverage Notice Comment: CALDERON delivered to and signed by patient. Original given to patient and one placed on chart. Last DP export: 10/08/19 11:30 Patient Name: ANDI BRODY Page 17915 at 0944 All edits/amendments must be made on the electronic document DICTATION DATE: 10/12/19942 WOODWORKER HELPER: JERROD 10/12/19 0943 RPT#: [id number] DC DATE:10/08/19 STATUS: DIS IN [facility] [address] [place] [address] END OF REPORT
== END 2019-10-08 18:51 | DRG 303 ==
LOC: D.ER 16:57 → D.MS 18:41 → OBSVTIME 18:41 → D.MS 10-07 15:29 → D.SDCHOLD 10-07 15:29 → D.MS 10-07 19:44
PROVIDERS: Emergency Medicine; ADMIT Internal Medicine Nephrology; ATTEND Internal Medicine Nephrology
DX: I25.118 Atherosclerotic heart disease of native coronary artery with other forms of angina pectoris (principal); I10 Essential (primary) hypertension; E78.5 Hyperlipidemia, unspecified; E11.9 Type 2 diabetes mellitus without complications; J44.9 Chronic obstructive pulmonary disease, unspecified; F03.90 Unspecified dementia, unspecified severity, without behavioral disturbance, psychotic disturbance, mood disturbance, and anxiety; I27.20 Pulmonary hypertension, unspecified; I48.0 Paroxysmal atrial fibrillation; Z79.01 Long term (current) use of anticoagulants

== ENCOUNTER 2021-03-23 18:19 | Inpatient (IN) | payer MEDICARE, BC ==
[~2021-03-23] VITALS: Ht 162.6 cm; Wt 40.9 kg
--- NOTE | ~2021-03-23 | EC ---
PATIENT:ANDI BRODY DATE OF SERVICE: 03/23/21 SEX: F MEDICAL RECORD: [id number] DATE OF : 31 LOCATION:D.M2 D.212 AGE OF PATIENT: 86 ADMISSION DATE: 03/23/21 REFERRING PHYSICIAN: INTERPRETING PHYSICIAN: VILMA FRANCO MD ECHOCARDIOGRAM REPORT ECHO CHARGES 4 ECHO COMPLETE Date: 04/01/21 CLINICAL DIAGNOSIS: CHF ECHOCARDIOGRAPHIC MEASUREMENTS (adult normal given) AC root (d.<3.7cm) 2.8 cm LV Septum d (<1.2 cm> 0.9 cm Valve Excursion 0.9 cm LV Septum (systole) 1.0 cm Left Atria (s.<4.0cm> 4.2 cm LVPW d(<1.2cm) 0.9 cm RV (d.<2.3cm) 2.4 cm LVPW (sytole) 1.2 cm LV diastole(<5.6CM) 6.0 cm MV E-F(>70mm/sec) cm LV systole 5.1 cm LVOT Diameter 1.6 cm MV exc.(>10mm) cm Est.ejection fraction (50-75%) % DOPPLER: LVIT cm/sec A 218 cm/sec E 180 cm/sec LA cm/sec RVSP 39 mmHg LVOT 124 cm/sec AOP1/2T m/s Asc. Ao 31 cm/sec RVOT 69 cm/sec RA cm/sec PA cm/sec AV Gradient Peak 38.8 mmHg AV Mean 18.0 mmHg AV Area 1.0 cm MV Gradient Peak mmHg MV Mean mmHg MV Area cm COMMENTS: Home Energy Consultant: April BRODY Activity Leader: 2 Dr. Barroso TAPE# Pericardial Effusion N DATE OF SERVICE: DIAGNOSIS: Congestive heart failure. INTERPRETATION: Technically difficult study due to uncooperating patient at the time is noted. Overall, normal left ventricular chamber size contractile function with mild concentric left ventricular hypertrophy with an ejection fraction of 55%. Mild left atrial chamber enlargement. Right atrium and right ventricular chamber size and function appears normal. Thickening and calcification of the aortic valve with decreased cusp excursion with an aortic ECHOCARDIOGRAM REPORT [id number] ANDI BRODY velocity max 3.1 consistent with moderate aortic stenosis. Mild aortic regurgitation. Mild thickening of the mitral valve leaflets. Mild to moderate mitral annular calcification. Mild mitral regurgitation. Tricuspid valve appears normal. Mild tricuspid regurgitation. Pulmonic valve not well visualized. No pulmonary regurgitation noted. No pericardial effusion visualized. IMPRESSION: 1. Technically difficult study, overall normal left ventricular chamber size and contractile function with mild concentric left ventricular hypertrophy, ejection fraction 55%. 2. Moderate aortic stenosis. TRANSINT:[id number] Voice Confirmation ID: [id number] DOCUMENT ID: [id number] VILMA FRANCO MD CC: [id number] DICTATION DATE: 04/01/21 1538 POLITICAL WORKER: 04/01/21 1633 DIS IN 04/01/21 [facility] [address] [id number]
[~2021-03-23 18:19] MED LIST changes: +ASPIRIN325 MG PO; +HYDROCODON-ACE1 EAC7 PO; +HYDROCORTISONE30 G9 TOPICAL; +KEFLEX500 MG PO; +LEXAPRO10 MG PO; +LEXAPRO20 MG PO; +MELATONIN 3 MG1 TAB PO; +PLAVIX75 MG PO; +RISPERDAL2 MG PO; +SORINE80 MG PO; +TYLENOL ARTHRI650 MG PO; +VITAMIN D10000 UNI1 PO; +[UNRECOGNIZED DRUG - CODE] TRANSDERM
--- NOTE | 2021-03-23 19:38 | NUR ---
PATIENT REPORT RECEIVED FROM ABRAHAM GALDAMEZ AND CARE TRANSFERRED TO ABRAHAM BOONE
[2021-03-23 21:39] VITALS: BP 121/40
--- NOTE | 2021-03-23 22:39 | NUR ---
BEDSIDE BLOOD GLUCOSE 94
[2021-03-24] VITALS (10 sets, daily range): BP systolic 99–155; BP diastolic 43–73; Ht 162.6 cm; Wt 40.9 kg
--- NOTE | 2021-03-24 00:38 | NUR ---
PATIENT IV IN RIGHT WRIST REDRESSED AND FLUSHED BY NURSE FOR PATENENCY. IV PATENT AT THIS TIME.
--- NOTE | 2021-03-24 00:39 | NUR ---
PATIENT GIVEN WARM BLANKETS FOR COMFORT, READJUSTED IN BED, AND REASSURED OF HER CARE PLAN BY NURSE. PATIENT RESTING COMFORTABLY IN BED AT THIS TIME.
--- NOTE | 2021-03-24 00:46 | NUR ---
PATIENT TO CT
--- NOTE | 2021-03-24 00:48 | NUR ---
URINE TO LAB AT 0002
--- NOTE | 2021-03-24 01:02 | NUR ---
RECIEVED REPORT FROM ABRAHAM BOONE AT THIS TIME. PT RESTING WITH EVEN RESPIRATIONS NOTED. PT ON PICK UP MAN, SINUS RHYTHM OF 82/MIN. CALL LIGHT WITHIN REACH.
[2021-03-24 01:21] LABS: BASOPHILS 0.6 % (0-2); EOSINOPHILS 3.4 % (0-7); HEMATOCRIT 32.3 % (36.0-48.0); HEMOGLOBIN 10.7 g/dL (12-16); MCH 28.9 pg (26.0-34.0); MCHC 33.1 g/dL (31.0-37.0); MCV 87.4 fL (80.0-100.0); MEAN PLATELET VOLUME 9.3 fL (7.4-10.4); MONOCYTES 9.4 % (2-11); NEUTROPHILS 62.6 % (40-80); RBC 3.69 10x6/uL (4.00-5.40); RDW 13.5 % (11.5-14.5); WBC 6.8 10x3/uL (4.8-10.8)
[2021-03-24 01:22] LABS: CALC OSMOLALITY 289 mosm/kg (275-300); CARBON DIOXIDE 32.1 mmol/L (21.0-32.0); CHLORIDE - SERUM 107 mmol/L (98-107); CREATININE - SERUM 0.9 mg/dL (0.6-1.3); GLUCOSE 91 mg/dL (74-106); PLATELET COUNT 232 10x3/uL (130-400); SODIUM 145 mmol/L (136-145); UREA NITROGEN 14 mg/dL (7-18); eGFR NON AFRICAN AMERICAN 62 mL/min (90-120)
[2021-03-24 01:24] LABS: APTT 30.8 SECONDS (22.8-39.4); INR 1.33 (0.85-1.17); PROTIME 15.2 SECONDS (11.6-15.0)
[2021-03-24 01:25] LABS: D-DIMER-QUANTITATIVE 0.66 ug/mLFEU (0.20-0.54)
[2021-03-24 01:41] LABS: ALBUMIN 3.2 g/dL (3.4-5.0); ALKALINE PHOSPHATASE 48 U/L (30-120); ALT (SGPT) 17 U/L (10-68); BILIRUBIN - TOTAL 0.48 mg/dL (0.2-1.3); C-REACTIVE PROTEIN 0.6 mg/dL (0.0-0.9); MAGNESIUM - SERUM 1.7 mg/dL (1.8-2.4); PRO BNP 653 pg/mL (0-450); PROTEIN - SERUM 6.5 g/dL (6.4-8.2); THYROID STIMULATING HORMONE 1.58 uIU/mL (0.36-3.74)
[2021-03-24 01:41] LABS: BILIRUBIN NEGATIVE (NEGATIVE); KETONE NEGATIVE mg/dL (< 1+); NITRITE NEGATIVE (NEGATIVE); PH 6.5 (5.0-8.0); UROBILINOGEN NORMAL mg/dL (< 2); WHITE CELLS - URINE <1 HPF (0-4)
[2021-03-24 01:42] LABS: LIPASE 39 U/L (73-393); TROPONIN-I < 0.017 ng/mL (0.000-0.060)
--- NOTE | 2021-03-24 03:30 | NUR ---
PT MOVED TO HOSPITAL BED, PT HAD NOTED EPISODE OF INCONTINENCE OF URINE. PERINEAL CARE AND LINEN CHANGE PROVIDED.
--- NOTE | 2021-03-24 03:50 | NUR ---
REPOSITIONED PT TO RIGHT SIDE LYING POSITION AT THIS TIME. NAD NOTED.
--- NOTE | 2021-03-24 04:00 | NUR ---
PT MOVED TO HOSPITAL BED, TURNED TO LEFT SIDE LYING POSITION WITH PILLOW BEHIND BACK .
--- NOTE | 2021-03-24 05:15 | NUR ---
PT LAYING ON BACK, REPOSITIONED TO RIGHT SIDE LYING POSITION X2 ASSIST. NAD NOTED.
--- NOTE | 2021-03-24 06:41 | NUR ---
PT DAUGHTER, PRISCILLA, CALLED AT THIS TIME FOR UPDATE ON PT. SHE STATES THAT SHE WOULD LIKE PT TO GO BACK TO ASSISTED LIVING SOON POSSIBLE SO SHE CAN GET BACK TO HER ROUTINE. THIS NURSE EXPLAINED THAT WE WOULD BRING THIS UP WITH PHYSICIAN WHEN THEY ROUND IN AM.
[2021-03-24 10:12] LABS: UDS - AMPHET NEGATIVE QUAL (NEGATIVE); UDS - BARB NEGATIVE QUAL (NEGATIVE); UDS - BENZO NEGATIVE QUAL (NEGATIVE); UDS - COCAINE NEGATIVE QUAL (NEGATIVE); UDS - OPIATE NEGATIVE QUAL (NEGATIVE); UDS - PCP NEGATIVE QUAL (NEGATIVE); UDS - THC NEGATIVE QUAL (NEGATIVE)
--- NOTE | 2021-03-24 15:39 | NUR ---
PT ARRIVED TO RM 2126 AT THIS TIME VIA STRETCHER, RR EVEN NON LABORED ON ROOM AIR. PT AWAKE, REPEATS PHRASES BUT UNABLE TO ANSWER QUESTIONS. WHEN ASKED PT REGARDING TIME/PLACE PT STATES "I DONT KNOW," PT HAD REDNESS NOTED TO BUTTOCK. VSS. PT POSITIONED IN BED AND SUPPORTED WITH PILLOWS. IV NOTED, NS INFUSING WITHOUT COMPLICATIONS. CLWR.
--- NOTE | 2021-03-24 16:59 | NUR ---
SPOKE WITH PT DAUGHTER AT THIS TIME REGARDING PT PLAN OF CARE AND UPDATE. PT DAUGHTER NAME PEPE WILDER - [phone].
--- NOTE | 2021-03-24 19:30 | NUR ---
PT IN BED, AAO X 1, PT CONFUSED, RESP EVEN AND UNLABORED, NO DISTRESS NOTED, CL IN REACH, SR UP X 2.
--- NOTE | 2021-03-25 02:22 | NUR ---
I have reviewed this patient and I concur with the Shift Assessment completed by the Licensed Practical Nurse today this shift.
[2021-03-25 05:14] LABS: BASOPHILS 0.3 % (0-2); EOSINOPHILS 2.3 % (0-7); HEMATOCRIT 34.3 % (36.0-48.0); HEMOGLOBIN 11.5 g/dL (12-16); MCH 28.9 pg (26.0-34.0); MCHC 33.5 g/dL (31.0-37.0); MCV 86.5 fL (80.0-100.0); MEAN PLATELET VOLUME 9.3 fL (7.4-10.4); MONOCYTES 8.5 % (2-11); NEUTROPHILS 75.9 % (40-80); PLATELET COUNT 235 10x3/uL (130-400); RBC 3.96 10x6/uL (4.00-5.40); RDW 13.3 % (11.5-14.5)
[2021-03-25 05:24] VITALS: BP 149/76
[2021-03-25 05:35] LABS: WBC 9.7 10x3/uL (4.8-10.8)
[2021-03-25 05:46] LABS: ALBUMIN 3.3 g/dL (3.4-5.0); ANION GAP 13.4 mmol/L (8-16); BILIRUBIN - TOTAL 0.7 mg/dL (0.2-1.3); CALCIUM 8.8 mg/dL (8.5-10.1); CARBON DIOXIDE 26.2 mmol/L (21.0-32.0); CREATININE - SERUM 0.8 mg/dL (0.6-1.3); MAGNESIUM - SERUM 1.5 mg/dL (1.8-2.4); POTASSIUM - SERUM 3.6 mmol/L (3.5-5.1); PROTEIN - SERUM 6.9 g/dL (6.4-8.2)
--- NOTE | 2021-03-25 06:45 | NUR ---
PATIENT AWAKE AND ALERT. NO CURRENT DISTRESS NOTED. RESP EVEN AND UNLABORED ON ROOM AIR. IV TO LEFT FA NS AT 75
[2021-03-25 07:51] VITALS: BP 140/69
--- NOTE | 2021-03-25 08:35 | NUR ---
PATIENT AWAKE AND ALERT, CONFUSION NOTED. EASILY REDIRECTED. RESP EVEN AND UNLABORED ON ROOM AIR. SATS 99. LUNG SOUNDS CLEAR BUT DIMINISHED. HEART SOUNDS REUGLAR RATE AND RYTHYM. IV TO LEFT FA RUNNING NS AT 75. BOWEL SOUNDS ACTIVE X 4. ABDOMEN SOFT AND NONTENDER.
[2021-03-25 11:41] VITALS: BP 116/67
[2021-03-25 16:08] VITALS: BP 124/68
--- NOTE | 2021-03-25 19:30 | NUR ---
PT IN BED, PT CONFUSED, RESP EVEN AND UNLABORED, NO DISTRESS NOTED, CL IN REACH, SR UP X 2.
[2021-03-25 20:39] VITALS: BP 160/72
[2021-03-26 01:14] VITALS: BP 136/66
[2021-03-26 01:33] VITALS: BP 120/60
--- NOTE | 2021-03-26 06:22 | NUR ---
I have reviewed this patient and I concur with the Shift Assessment completed by the Licensed Practical Nurse today this shift.
--- NOTE | 2021-03-26 06:30 | NUR ---
BEDSIDE REPORT RECEIVED. NO CURRENT PAIN OR DISTRESS PATIENT IS CONFUSED, RESP EVEN AND UNLABORED. ON ROOM AIR. IV TO LEFT AC.
[2021-03-26 06:41] VITALS: BP 119/54
[2021-03-26 07:20] LABS: BASOPHILS 0 % (0-2); EOSINOPHILS 4.4 % (0-7); HEMATOCRIT 32.5 % (36.0-48.0); HEMOGLOBIN 10.8 g/dL (12-16); LYMPHOCYTES 14.3 % (15-50); MCHC 33.4 g/dL (31.0-37.0); MCV 86.9 fL (80.0-100.0); MEAN PLATELET VOLUME 9.5 fL (7.4-10.4); MONOCYTES 10.2 % (2-11); NEUTROPHILS 71.1 % (40-80); PLATELET COUNT 216 10x3/uL (130-400); RBC 3.74 10x6/uL (4.00-5.40); RDW 13.6 % (11.5-14.5); WBC 8.9 10x3/uL (4.8-10.8)
[2021-03-26 07:43] LABS: ANION GAP 11.5 mmol/L (8-16); BILIRUBIN - TOTAL 0.6 mg/dL (0.2-1.3); CALCIUM 8.4 mg/dL (8.5-10.1); CARBON DIOXIDE 25.6 mmol/L (21.0-32.0); CREATININE - SERUM 0.8 mg/dL (0.6-1.3); MAGNESIUM - SERUM 1.4 mg/dL (1.8-2.4); POTASSIUM - SERUM 3.1 mmol/L (3.5-5.1); PROTEIN - SERUM 6.2 g/dL (6.4-8.2)
[2021-03-26 11:16] VITALS: BP 120/75
--- NOTE | 2021-03-26 13:09 | NUR ---
Nutrition Follow-up: Pt confused. Discussed in IDT meeting. PT reported s/s of aspiration on thin liquids & jello yesterday. Diet: Clear Liquid AAT (since admit) No new wt; last wt: 138# (03/24) Labs noted: K+ 3.1, Glu 88, Ca 8.4, Mg 1.4, Alb 3.0 Meds noted: Protonix, Humalog, NS @ 75, electrolyte protocol -Rec ST eval. -Pt has been on clears since admit. If pt safely able to take PO (pending ST eval), rec advance diet when medically feasible, although may need to consider nutrition support. -Need new wt. -RD will follow up within 3 days.
--- NOTE | 2021-03-26 15:04 | NUR ---
OT NOTE: PT COMPLETED BED MOBILITY WITH MIN A. PT COMPLETED SUPINE TO SIT WITH CGA. PT COMPLETED BUE AROM AXS TOLERATED. PT COMPLETED FACE HYGIENE WITH MIN A. PT COMPLETED HAIR GROOMING WITH TOTAL A. [phone] THANK YOU,MALKA BARBOSA
--- NOTE | 2021-03-26 19:58 | NUR ---
INITIAL ROUNDS AND ASSESSMENT COMPLETED. PT RESTING NO DISTRESS. CALL LIGHT IN REACH. SEE SHIFT ASSESSMENT.
[2021-03-26 20:00] VITALS: BP 143/83
--- NOTE | 2021-03-26 22:57 | NUR ---
ALL BEDTIME MEDS GIVEN. PT RESTING WITH NO DISTRESS. CALL LIGHT IN REACH. SR UP X 2.
[2021-03-27] VITALS: BP 150/73
[2021-03-27 04:00] VITALS: BP 149/70
--- NOTE | 2021-03-27 04:12 | NUR ---
RESTING IN BED WITH EYES CLOSED. NO DISTRESS. IVF INFUSING. CALL LIGHT IN REACH. SR UP X 3, FALL PRECAUTIONS IN PLACE.
--- NOTE | 2021-03-27 06:45 | NUR ---
RECEIVED BEDSIDE REPORT. RESP EVEN AND UNLABORED. IV TO LEFT FOREARM IN PLACE WITH FLUIDS. NO O2 IN USE.
[2021-03-27 06:49] LABS: BASOPHILS 0.3 % (0-2); EOSINOPHILS 4.5 % (0-7); HEMATOCRIT 29.8 % (36.0-48.0); HEMOGLOBIN 10.2 g/dL (12-16); MCH 29.4 pg (26.0-34.0); MCHC 34.2 g/dL (31.0-37.0); MCV 85.9 fL (80.0-100.0); MEAN PLATELET VOLUME 9.2 fL (7.4-10.4); MONOCYTES 10.3 % (2-11); NEUTROPHILS 70.9 % (40-80); PLATELET COUNT 204 10x3/uL (130-400); RBC 3.47 10x6/uL (4.00-5.40); RDW 13.3 % (11.5-14.5); WBC 10.2 10x3/uL (4.8-10.8)
[2021-03-27 06:55] LABS: ALKALINE PHOSPHATASE 48 U/L (30-120); ALT (SGPT) 11 U/L (10-68); CALC OSMOLALITY 282 mosm/kg (275-300); CALCIUM 8.2 mg/dL (8.5-10.1); CHLORIDE - SERUM 110 mmol/L (98-107); CREATININE - SERUM 0.7 mg/dL (0.6-1.3); GLUCOSE 90 mg/dL (74-106); MAGNESIUM - SERUM 1.2 mg/dL (1.8-2.4); POTASSIUM - SERUM 3.2 mmol/L (3.5-5.1); PROTEIN - SERUM 5.7 g/dL (6.4-8.2); SODIUM 143 mmol/L (136-145); UREA NITROGEN 6 mg/dL (7-18); eGFR NON AFRICAN AMERICAN 83 mL/min (90-120)
[2021-03-27 07:53] VITALS: BP 148/74
--- NOTE | 2021-03-27 09:05 | NUR ---
PATIENT AWAKE AND ALERT. NO CURRENT PAIN OR DISTRESS NOTED. RESP EVEN AND UNLABORED. PATIENT IS CONFUSED. UNABLE TO REDIRECT AT TIMES. HEART SOUNDS REGULAR RATE AND RYTHYM. BOWEL SOUNDS ACTIVE X 4. PATIENT IS CONFUSED OF LOCATION AND PERSONAL BELONGINGS LOCATION. EXPLAINED SHE IS IN HOSPITAL. PATIENT WILL SETTLE BUT DOES GET AGITATED OR ANXIOUS AT TIMES.
[2021-03-27 11:40] VITALS: BP 146/72
[2021-03-27 15:39] VITALS: BP 148/76
--- NOTE | 2021-03-27 15:58 | NUR ---
I have reviewed this patient and I concur with the Shift Assessment completed by the Licensed Practical Nurse today this shift.
[2021-03-27 20:00] VITALS: BP 147/81
[2021-03-28 06:10] VITALS: BP 166/76
[2021-03-28 06:14] LABS: BASOPHILS 0.3 % (0-2); EOSINOPHILS 1.7 % (0-7); HEMATOCRIT 34.1 % (36.0-48.0); HEMOGLOBIN 11.6 g/dL (12-16); LYMPHOCYTES 13.6 % (15-50); MCH 29.1 pg (26.0-34.0); MCV 85.6 fL (80.0-100.0); MONOCYTES 9.7 % (2-11); NEUTROPHILS 74.7 % (40-80); PLATELET COUNT 238 10x3/uL (130-400); RBC 3.99 10x6/uL (4.00-5.40); RDW 13.8 % (11.5-14.5)
[2021-03-28 06:48] LABS: ALBUMIN 3.4 g/dL (3.4-5.0); ANION GAP 16.7 mmol/L (8-16); BILIRUBIN - TOTAL 0.75 mg/dL (0.2-1.3); CALCIUM 9.1 mg/dL (8.5-10.1); CARBON DIOXIDE 21.4 mmol/L (21.0-32.0); POTASSIUM - SERUM 3.1 mmol/L (3.5-5.1); PROTEIN - SERUM 6.9 g/dL (6.4-8.2)
--- NOTE | 2021-03-28 06:50 | NUR ---
BEDSIDE REPORT RECEIVED. RESP EVEN AND UNLABORED ON 2L. IV TO LEFT AC PATENT.
[2021-03-28 06:59] LABS: CREATININE - SERUM 0.9 mg/dL (0.6-1.3)
[2021-03-28 08:12] VITALS: BP 152/80
--- NOTE | 2021-03-28 09:49 | NUR ---
PATIENT ASLEEP, RESTING COMFORTABLY, LUNG SOUNDS CLEAR WITH DIMINISHED LOWER LOBES. RESP EVEN AND LABORED ON 2L VIA NASAL CANNULA. HEART SOUNDS REGULAR RATE AND RYTHYM. IV TO LEFT AC PATIENT AND RUNNING FLUIDS AT 75 FOR HYDRATION. NO DISTRESS NOTED.
[2021-03-28 11:23] VITALS: BP 148/76
--- NOTE | 2021-03-28 14:01 | NUR ---
I have reviewed this patient and I concur with the Shift Assessment completed by the Licensed Practical Nurse today this shift.
[2021-03-28 15:30] VITALS: BP 116/57
[2021-03-28 20:43] VITALS: BP 137/70
[2021-03-29 00:10] VITALS: BP 139/75
[2021-03-29 04:47] VITALS: BP 129/55
[2021-03-29 05:34] LABS: BASOPHILS 0.4 % (0-2); EOSINOPHILS 3.3 % (0-7); HEMATOCRIT 29.5 % (36.0-48.0); HEMOGLOBIN 9.8 g/dL (12-16); MCH 29.1 pg (26.0-34.0); MCHC 33.3 g/dL (31.0-37.0); MCV 87.5 fL (80.0-100.0); MEAN PLATELET VOLUME 9.3 fL (7.4-10.4); MONOCYTES 10.7 % (2-11); NEUTROPHILS 68.6 % (40-80); PLATELET COUNT 202 10x3/uL (130-400); RBC 3.37 10x6/uL (4.00-5.40); RDW 13.7 % (11.5-14.5)
[2021-03-29 05:59] LABS: ALBUMIN 2.9 g/dL (3.4-5.0); ALKALINE PHOSPHATASE 47 U/L (30-120); ALT (SGPT) 10 U/L (10-68); BILIRUBIN - TOTAL 0.45 mg/dL (0.2-1.3); CALC OSMOLALITY 288 mosm/kg (275-300); CALCIUM 8.4 mg/dL (8.5-10.1); CARBON DIOXIDE 25.6 mmol/L (21.0-32.0); CHLORIDE - SERUM 111 mmol/L (98-107); CREATININE - SERUM 0.7 mg/dL (0.6-1.3); GLUCOSE 92 mg/dL (74-106); MAGNESIUM - SERUM 1.2 mg/dL (1.8-2.4); PROTEIN - SERUM 5.9 g/dL (6.4-8.2); SODIUM 145 mmol/L (136-145); eGFR NON AFRICAN AMERICAN 83 mL/min (90-120)
[2021-03-29 06:05] LABS: UREA NITROGEN 13 mg/dL (7-18)
[2021-03-29 06:19] LABS: WBC 7.6 10x3/uL (4.8-10.8)
[2021-03-29 08:06] VITALS: BP 119/60
[2021-03-29 11:06] VITALS: BP 125/60
--- NOTE | 2021-03-29 13:21 | NUR ---
Nutrition Follow-up: Pt confused. Sitting in bed eating breakfast this AM. ST following. Awaiting placement. Diet: Regular, Mech Soft, feeding assistance No PO intake recorded No new wt; last wt: 138# (03/24) Labs noted: K+ 3.0, Ca 8.4, Mg 1.2, Alb 2.9 Meds noted: Protonix, NS @ 75, electrolyte protocol -Encourage PO intake and honor food preferences within diet restrictions. -Offer nutrition supplements. -Need new wt. -RD will follow up within 3 days.
--- NOTE | 2021-03-29 19:50 | NUR ---
PT YELLING OUT THAT SHE NEEDS SOMEONE, ENTERED ROOM PT ASKING FOR HER FEET TO BE COVERED. BLANKET PLACED OVER FEET. NO OTHER NEEDS VOICED AT THIS TIME.
--- NOTE | 2021-03-29 22:10 | NUR ---
PHOTOENGRAVING RETOUCHER AT BED SIDE, BATH AND LINEN CHANGE COMPLETE.
[2021-03-30 00:17] VITALS: BP 134/89
--- NOTE | 2021-03-30 03:32 | NUR ---
I have reviewed this patient and I concur with the Shift Assessment completed by the Licensed Practical Nurse today this shift.
[2021-03-30 04:59] LABS: BASOPHILS 0.2 % (0-2); EOSINOPHILS 1.9 % (0-7); HEMATOCRIT 32.3 % (36.0-48.0); HEMOGLOBIN 10.9 g/dL (12-16); LYMPHOCYTES 11.7 % (15-50); MCH 29.4 pg (26.0-34.0); MCHC 33.8 g/dL (31.0-37.0); MEAN PLATELET VOLUME 9.7 fL (7.4-10.4); MONOCYTES 10.8 % (2-11); NEUTROPHILS 75.4 % (40-80); PLATELET COUNT 240 10x3/uL (130-400); RBC 3.71 10x6/uL (4.00-5.40); RDW 13.4 % (11.5-14.5)
[2021-03-30 05:09] LABS: WBC 12.2 10x3/uL (4.8-10.8)
[2021-03-30 05:19] LABS: ALBUMIN 3.2 g/dL (3.4-5.0); ALKALINE PHOSPHATASE 56 U/L (30-120); ALT (SGPT) 12 U/L (10-68); BILIRUBIN - TOTAL 0.59 mg/dL (0.2-1.3); CALC OSMOLALITY 284 mosm/kg (275-300); CALCIUM 8.5 mg/dL (8.5-10.1); CARBON DIOXIDE 22.8 mmol/L (21.0-32.0); CHLORIDE - SERUM 108 mmol/L (98-107); CREATININE - SERUM 0.7 mg/dL (0.6-1.3); GLUCOSE 119 mg/dL (74-106); PROTEIN - SERUM 6.7 g/dL (6.4-8.2); SODIUM 143 mmol/L (136-145); UREA NITROGEN 10 mg/dL (7-18); eGFR NON AFRICAN AMERICAN 83 mL/min (90-120)
[2021-03-30 05:46] VITALS: BP 135/42
[2021-03-30 05:51] LABS: POTASSIUM - SERUM 2.8 mmol/L (3.5-5.1)
--- NOTE | 2021-03-30 06:40 | NUR ---
POTASSIUM 2.8 PER AM LAB DRAW. FIRST DOSE OF 10 MEQ POTASSIUM INFUSING PER PROTOCOL.
[2021-03-30 09:20] VITALS: BP 147/74
[2021-03-30 12:53] VITALS: BP 117/52
--- NOTE | 2021-03-30 13:32 | MORECARE ---
CASE MANAGEMENT DISCHARGE SUMMARY PATIENT: ANDI BRODY UNIT: [id number] ADM DATE: 03/23/21 AGE: 86 : 33 SEX: F ROOM/BED: D.2126 AUTHOR: ROWENA,DOC PHYSICIAN: REFERRING PHYSICIAN: ALEX AMBRIZ MD DATE OF SERVICE: 03/30/21 Case Management Discharge Planning Summary COMMENTS ENTERED DATE: 03/29/21 16:53 CT COMMENT TYPE: Discharge Planning REVIEWER: Yuko Duvall FAX SENT TO [facility] IN [facility]. SPOKE WITH DAUGHTER PEPE WILDER, WILL FOLLOW UP TOMORROW WITH JESUS AT [place]. ENTERED DATE: 03/26/21 16:52 CT COMMENT TYPE: Discharge Planning REVIEWER: Yuko Duvall CM spoke with [employer] customer sales representative and was informed that patient is needs have increased and pt needs higher level of care. Will need to speak with family for KIERA and possible SNF. DCP REVIEW SUMMARY ANTICIPATED D/C DATE: EXPECTED LOS : CASE STATUS: DCP Initiated INITIAL REVIEW: 03/23/2021 INITIAL REVIEWER: Yuko Duvall FINAL DISCHARGE DISPOSITION: : FINAL REVIEWER: FINAL REVIEW DATE: DCP Focus Questions & Answers QUESTION: ANSWER : PATIENT: ANDI BRODY ENCOUNTER: [id number] MEDICAL RECORD#: [id number] ADMISSION DATE: 03/23/2021 DISCHARGE DATE: ATTENDING MD: : AGE: 86 MARITAL STATUS: W DC PLAN ID: [id number] FACILITY: [facility] PRINTED ON: 03/30/21 13:32 CT All edits/amendments must be made on the electronic document DICTATION DATE: 03/30/211331 SUPERINTENDENT MECHANICAL: JERROD 03/30/21 133 RPT#: [id number] DC DATE: STATUS: ADM IN [facility] [address] [place] [address] END OF REPORT
--- NOTE | 2021-03-30 13:49 | MORECARE ---
CASE MANAGEMENT DISCHARGE SUMMARY PATIENT: ANDI BRODY UNIT: [id number] ADM DATE: 03/23/21 AGE: 86 : 33 SEX: F ROOM/BED: D.2126 AUTHOR: ROWENA,DOC PHYSICIAN: REFERRING PHYSICIAN: ALEX AMBRIZ MD DATE OF SERVICE: 03/30/21 Case Management Discharge Planning Summary COMMENTS ENTERED DATE: 03/30/21 13:36 CT COMMENT TYPE: Discharge Planning REVIEWER: Yuko Duvall CM spoke to patients daughter yesterday in length pertaining to SNF placement for patient. Pt had been a patient at the [facility] in , but had been denied return due to the increased level of care needs. Pt daughter was upset with facility and wanting to discuss other options. Pt informed CM that she wants her mother to go to [place] in [facility]. Referral sent to Krista at [phone]. Update from today is that patient needs a MICHELLE sent. Will plan to do that today. ENTERED DATE: 03/29/21 16:53 CT COMMENT TYPE: Discharge Planning REVIEWER: Yuko Duvall FAX SENT TO [facility]. SPOKE WITH DAUGHTER PEPE WILDER, WILL FOLLOW UP TOMORROW WITH JESUS AT [place]. ENTERED DATE: 03/26/21 16:52 CT COMMENT TYPE: Discharge Planning REVIEWER: Yuko Duvall CM spoke with [employer] territory sales representative and was informed that patient is needs have increased and pt needs higher level of care. Will need to speak with family for KIERA and possible SNF. DCP REVIEW SUMMARY ANTICIPATED D/C DATE: EXPECTED LOS : CASE STATUS: DCP Initiated INITIAL REVIEW: 03/23/2021 INITIAL REVIEWER: Yuko Duvall FINAL DISCHARGE DISPOSITION: : FINAL REVIEWER: FINAL REVIEW DATE: DCP Focus Questions & Answers QUESTION: ANSWER : PATIENT: ANDI BRODY ENCOUNTER: [id number] MEDICAL RECORD#: [id number] ADMISSION DATE: 03/23/2021 DISCHARGE DATE: ATTENDING MD: NINA: AGE: 86 MARITAL STATUS: W DC PLAN ID: [id number] FACILITY: [facility] PRINTED ON: 03/30/21 13:48 CT All edits/amendments must be made on the electronic document DICTATION DATE: 03/30/211347 FREIGHT TALLIER: JERROD 03/30/211347 RPT#: [id number] DC DATE: STATUS: ADM IN [facility] [address] [place] [address] END OF REPORT
--- NOTE | 2021-03-30 14:06 | NUR ---
OT NOTE: PT VERY WEAK; MAX ASSIST FOR BED MOB INCLUDING ROLLING SIDE TO SIDE AND SUPINE TO SIT; MOD ASSIST WITH STATIC EOB SITTING; A/AROM TO B UES..REQUIRES FREQ REST BREAKS AND TOLERATES MINIMAL ACT. ROWAN LUNA, OTR/L [id number]
[2021-03-30 16:45] VITALS: BP 114/47
[2021-03-30 20:45] VITALS: BP 127/71
--- NOTE | 2021-03-30 21:43 | NUR ---
CURTAIN CUTTER AT BED SIDE, BATH COMPLETE.
[2021-03-31 00:52] VITALS: BP 144/65
--- NOTE | 2021-03-31 02:34 | NUR ---
I have reviewed this patient and I concur with the Shift Assessment completed by the Licensed Practical Nurse today this shift.
[2021-03-31 05:20] VITALS: BP 138/67
[2021-03-31 06:46] LABS: BASOPHILS 0.3 % (0-2); EOSINOPHILS 1.6 % (0-7); HEMATOCRIT 29.4 % (36.0-48.0); HEMOGLOBIN 9.7 g/dL (12-16); LYMPHOCYTES 9.5 % (15-50); MCHC 33.1 g/dL (31.0-37.0); MCV 87.5 fL (80.0-100.0); MEAN PLATELET VOLUME 9.5 fL (7.4-10.4); MONOCYTES 9.7 % (2-11); NEUTROPHILS 78.9 % (40-80); PLATELET COUNT 203 10x3/uL (130-400); RBC 3.36 10x6/uL (4.00-5.40); RDW 13.5 % (11.5-14.5); WBC 10.2 10x3/uL (4.8-10.8)
[2021-03-31 06:58] LABS: ALBUMIN 2.8 g/dL (3.4-5.0); ALKALINE PHOSPHATASE 47 U/L (30-120); ALT (SGPT) 13 U/L (10-68); CALC OSMOLALITY 282 mosm/kg (275-300); CALCIUM 8.3 mg/dL (8.5-10.1); CHLORIDE - SERUM 110 mmol/L (98-107); CREATININE - SERUM 0.7 mg/dL (0.6-1.3); GLUCOSE 100 mg/dL (74-106); POTASSIUM - SERUM 3.9 mmol/L (3.5-5.1); PROTEIN - SERUM 6.1 g/dL (6.4-8.2); SODIUM 143 mmol/L (136-145); UREA NITROGEN 8 mg/dL (7-18); eGFR NON AFRICAN AMERICAN 83 mL/min (90-120)
[2021-03-31 09:00] VITALS: BP 128/62
--- NOTE | 2021-03-31 13:09 | NUR ---
Nutrition Reassessment/Follow-up: Pt confused. Spoke with nurse (Gisselle) in pt's room. Nursing reports pt is weak and unable to feed self; nurse holding Ensure with straw up to pt's mouth to drink. Reportedly ate <50% of meals yesterday. ST signed off. Awaiting placement. Diet: Regular, Mech Soft, feeding assistance with precautions No new wt; last wt: 138# (03/24) Labs noted: Ca 8.3, Alb 2.8 Meds noted: KDur, Protonix, NS @ 75, electrolyte protocol Est needs: 9076-6249 kcal/day (20-30 kcal/kg) 60-75 g protein/day (1-1.2 g/kg) 0972-7950 mL fluid/day (1 mL/kcal) or per MD Nutrition Dx: -Inadequate energy intake R/T AMS, weakness, appetite AEB poor PO intake reported. Nutrition Goals: -PO intake >=50% avg of meals/snacks. -Meet est fluid needs without fluid overload. -Stable dry wt. -Glu at or near normal. Nutrition Intervention: -Encourage PO intake and honor food preferences within diet restrictions. -+Ensure with meals. -Need new wt. -RD will follow up within 2-5 days.
[2021-03-31 15:00] VITALS: BP 143/59
--- NOTE | 2021-03-31 16:52 | NUR ---
OT NOTE: UPON ENTERING ROOM, PT MOVING HER LEGS UP AND DOWN IN THE BED. PT VERY ANXIOUS.. CONT TO STATE THAT SHE CANT BREATH. NURSING REPORTS THAT IT MAY BE DUE TO REMOVAL OF DENTURES.. ATTEMPTED TO HAVE PT PUT IN DENTURES, BUT SHE BECAME TOO ANXIOUS ABOUT DIFFICULTY BREATHING.. AFTER SEVERAL ATTEMPTS, DENTURES WERE IN.. 02 SATS AT 96%..ATTEMPTING TO EXPLAIN TO PT THAT SHE NEEDS TO RELAX AND STOP MOVING IF SHE FEELS LIKE SHES HAVING DIFFICULTY BREATHING.. PT BECAME VERY AGITATED AND BEGAN ATTEMPTING TO SWING AT THERAPIST.. NURSING INFORMED RT THAT PT REPORTING DIFFICULTY BREATHING. ROWAN LUNA,OTR/L
--- NOTE | 2021-03-31 19:43 | NUR ---
GONE TO CT VIA BED.
[2021-04-01 00:13] VITALS: BP 110/52
[2021-04-01 00:27] VITALS: BP 131/65
[2021-04-01 03:05] VITALS: BP 117/68
--- NOTE | 2021-04-01 04:04 | NUR ---
I have reviewed this patient and I concur with the Shift Assessment completed by the Licensed Practical Nurse today this shift.
[2021-04-01 05:20] VITALS: BP 113/69
--- NOTE | 2021-04-01 06:30 | NUR ---
RECEIVED BEDSIDE REPORT. RESP EVEN AND UNLABORED ON 2L. IV TO LEFT AC PATENT.
[2021-04-01 06:51] LABS: BASOPHILS 0.8 % (0-2); EOSINOPHILS 4.3 % (0-7); HEMATOCRIT 27.6 % (36.0-48.0); HEMOGLOBIN 9.1 g/dL (12-16); LYMPHOCYTES 16.2 % (15-50); MCH 29.1 pg (26.0-34.0); MCHC 33.1 g/dL (31.0-37.0); MEAN PLATELET VOLUME 10.1 fL (7.4-10.4); MONOCYTES 9.8 % (2-11); NEUTROPHILS 68.9 % (40-80); PLATELET COUNT 220 10x3/uL (130-400); RBC 3.14 10x6/uL (4.00-5.40); RDW 13.8 % (11.5-14.5)
[2021-04-01 07:06] LABS: ALBUMIN 2.8 g/dL (3.4-5.0); ALKALINE PHOSPHATASE 38 U/L (30-120); ALT (SGPT) 14 U/L (10-68); BILIRUBIN - TOTAL 0.56 mg/dL (0.2-1.3); CALC OSMOLALITY 290 mosm/kg (275-300); CALCIUM 8.5 mg/dL (8.5-10.1); CARBON DIOXIDE 24.8 mmol/L (21.0-32.0); CHLORIDE - SERUM 110 mmol/L (98-107); CREATININE - SERUM 0.7 mg/dL (0.6-1.3); GLUCOSE 74 mg/dL (74-106); POTASSIUM - SERUM 3.9 mmol/L (3.5-5.1); PROTEIN - SERUM 5.7 g/dL (6.4-8.2); SODIUM 146 mmol/L (136-145); UREA NITROGEN 14 mg/dL (7-18); eGFR NON AFRICAN AMERICAN 83 mL/min (90-120)
[2021-04-01 08:13] VITALS: BP 107/49
[2021-04-01] MEDS ORDERED: PROTONIX40 MG PO (11:28)
[2021-04-01 13:02] VITALS: BP 144/70
--- NOTE | 2021-04-01 15:53 | NUR ---
PATIENT AWAKE AND CONFUSED. RESP EVEN AND UNLABORED ON 2L. IV PATENT TO LEFT AC. NO CURRENT PAIN OR DISTRESS. LUNG SOUNDS CLEAR BUT DIMINISHED. ABDOMEN ACTIVE X 4 QUADS.
--- NOTE | 2021-04-01 16:15 | MORECARE ---
CASE MANAGEMENT DISCHARGE SUMMARY PATIENT: ANDI BRODY UNIT: [id number] ADM DATE: 03/23/21 AGE: 86 : 33 SEX: F ROOM/BED: D.0346 AUTHOR: ROWENA,DOC PHYSICIAN: REFERRING PHYSICIAN: ALEX AMBRIZ MD DATE OF SERVICE: 04/01/21 Case Management Discharge Planning Summary COMMENTS ENTERED DATE: 03/30/21 13:36 CT COMMENT TYPE: Discharge Planning REVIEWER: Yuko Duvall CM spoke to patients daughter yesterday in length pertaining to SNF placement for patient. Pt had been a patient at the [facility] in , but had been denied return due to the increased level of care needs. Pt daughter was upset with facility and wanting to discuss other options. Pt informed CM that she wants her mother to go to [facility] in [facility]. Referral sent to Krista at [phone]. Update from today is that patient needs a MICHELLE sent. Will plan to do that today. ENTERED DATE: 03/29/21 16:53 CT COMMENT TYPE: Discharge Planning REVIEWER: Yuko Duvall FAX SENT TO [facility] IN [facility]. SPOKE WITH DAUGHTER PEPE WILDER, WILL FOLLOW UP TOMORROW WITH JESUS AT [place]. ENTERED DATE: 03/26/21 16:52 CT COMMENT TYPE: Discharge Planning REVIEWER: Yuko Duvall CM spoke with [employer] printing sales representative and was informed that patient is needs have increased and pt needs higher level of care. Will need to speak with family for KIERA and possible SNF. DCP REVIEW SUMMARY ANTICIPATED D/C DATE: 04/01/2021 EXPECTED LOS : 9 CASE STATUS: DCP Initiated INITIAL REVIEW: 03/23/2021 INITIAL REVIEWER: Yuko Duvall FINAL DISCHARGE DISPOSITION: : FINAL REVIEWER: FINAL REVIEW DATE: DCP Focus Questions & Answers QUESTION: ANSWER : PATIENT: ANDI BRODY ENCOUNTER: [id number] MEDICAL RECORD#: [id number] ADMISSION DATE: 03/23/2021 DISCHARGE DATE: 04/01/2021 ATTENDING MD: NINA: AGE: 86 MARITAL STATUS: W DC PLAN ID: [id number] FACILITY: [facility] PRINTED ON: 04/01/21 16:15 CT All edits/amendments must be made on the electronic document DICTATION DATE: 04/01/211614 OUTSIDE PLANT TECHNICIAN: JERROD 04/01/211614 RPT#: [id number] DC DATE:04/01/21 STATUS: DIS IN [facility] [address] [place] [address] END OF REPORT
--- NOTE | 2021-04-01 21:58 | MORECARE ---
CASE MANAGEMENT DISCHARGE SUMMARY PATIENT: ANDI BRODY UNIT: [id number] ADM DATE: 03/23/21 AGE: 86 : 33 SEX: F ROOM/BED: D.4896 AUTHOR: ROWENA,DOC PHYSICIAN: REFERRING PHYSICIAN: ALEX AMBRIZ MD DATE OF SERVICE: 04/01/21 Case Management Discharge Planning Summary COMMENTS ENTERED DATE: 03/30/21 13:36 CT COMMENT TYPE: Discharge Planning REVIEWER: Yuko Duvall CM spoke to patients daughter yesterday in length pertaining to SNF placement for patient. Pt had been a patient at the [facility] in , but had been denied return due to the increased level of care needs. Pt daughter was upset with facility and wanting to discuss other options. Pt informed CM that she wants her mother to go to [place] [facility] in [facility]. Referral sent to Krista at [phone]. Update from today is that patient needs a MICHELLE sent. Will plan to do that today. ENTERED DATE: 03/29/21 16:53 CT COMMENT TYPE: Discharge Planning REVIEWER: Yuko Duvall FAX SENT TO [facility] IN [facility]. SPOKE WITH DAUGHTER PEPE WILDER, WILL FOLLOW UP TOMORROW WITH JESUS AT [place]. ENTERED DATE: 03/26/21 16:52 CT COMMENT TYPE: Discharge Planning REVIEWER: Yuko Duvall CM spoke with [employer] automotive leasing sales representative and was informed that patient is needs have increased and pt needs higher level of care. Will need to speak with family for KIERA and possible SNF. DCP REVIEW SUMMARY ANTICIPATED D/C DATE: 04/01/2021 EXPECTED LOS : 9 CASE STATUS: DCP Initiated INITIAL REVIEW: 03/23/2021 INITIAL REVIEWER: Yuko Duvall FINAL DISCHARGE DISPOSITION: : FINAL REVIEWER: FINAL REVIEW DATE: DCP Focus Questions & Answers QUESTION: ANSWER : PATIENT: ANDI BRODY ENCOUNTER: [id number] MEDICAL RECORD#: [id number] ADMISSION DATE: 03/23/2021 DISCHARGE DATE: 04/01/2021 ATTENDING MD: NINA: AGE: 86 MARITAL STATUS: W DC PLAN ID: [id number] FACILITY: [facility] PRINTED ON: 04/01/21 21:57 CT All edits/amendments must be made on the electronic document DICTATION DATE: 04/01/212156 OIL PIT ATTENDANT: JERROD 04/01/212156 RPT#: [id number] DC DATE:04/01/21 STATUS: DIS IN [facility] [address] [place] [address] END OF REPORT
--- NOTE | 2021-04-01 22:35 | NUR ---
OT NOTE: PT REQUIRED MOD-MAX A FOR BED MOBILITY. PT COMPLETED SIDE ROLLING WITH MOD-MAX A. PT REQUIRED TOTAL A FOR LB HYGIENE. PT COMPLETED FACE HYGIENE WITH MAX A. PT IS CONFUSED. NURSING AWARE. PT REQUIRED TOTAL A FOR POSITIONING IN BED. CL IN REACH...ALARM ON. -[phone] YUSEF TURCIOS COTA
--- NOTE | 2021-04-02 11:23 | MORECARE ---
CASE MANAGEMENT DISCHARGE SUMMARY PATIENT: ANDI BRODY UNIT: [id number] ADM DATE: 03/23/21 AGE: 86 : 33 SEX: F ROOM/BED: D.4786 AUTHOR: ROWENA,DOC PHYSICIAN: REFERRING PHYSICIAN: ALEX AMBRIZ MD DATE OF SERVICE: 04/02/21 Case Management Discharge Planning Summary COMMENTS ENTERED DATE: 04/02/21 11:11 CT COMMENT TYPE: Discharge Planning REVIEWER: Yuko Duvall PT WAS DISCHARGED 04/01 TO [facility]. TRANSPORTED BY EMS. SENT PATIENT BELONGINGS BROUGHT TO THIS FACLITY BY THE [facility] WHICH CONSISTED OF 2 FILE BOXES OF CLOTHING. CONTACT NUMBER FOR [facility] IS [phone] ENTERED DATE: 03/30/21 13:36 CT COMMENT TYPE: Discharge Planning REVIEWER: Yuko Duvall CM spoke to patients daughter yesterday in length pertaining to SNF placement for patient. Pt had been a patient at the [facility] in , but had been denied return due to the increased level of care needs. Pt daughter was upset with facility and wanting to discuss other options. Pt informed CM that she wants her mother to go to [facility] in [facility]. Referral sent to [facility] at [phone]. Update from today is that patient needs a MICHELLE sent. Will plan to do that today. ENTERED DATE: 03/29/21 16:53 CT COMMENT TYPE: Discharge Planning REVIEWER: Yuko Duvall FAX SENT TO [facility] IN [facility]. SPOKE WITH DAUGHTER PEPE WILDER, WILL FOLLOW UP TOMORROW WITH JESUS AT [place]. ENTERED DATE: 03/26/21 16:52 CT COMMENT TYPE: Discharge Planning REVIEWER: Yuko Duvall CM spoke with [employer] airport representative and was informed that patient is needs have increased and pt needs higher level of care. Will need to speak with family for KIERA and possible SNF. DCP REVIEW SUMMARY ANTICIPATED D/C DATE: 04/01/2021 EXPECTED LOS : 9 CASE STATUS: DCP Initiated INITIAL REVIEW: 03/23/2021 INITIAL REVIEWER: Yuko Duvall FINAL DISCHARGE DISPOSITION: : FINAL REVIEWER: FINAL REVIEW DATE: DCP Focus Questions & Answers QUESTION: ANSWER : PATIENT: ANDI BRODY ENCOUNTER: [id number] MEDICAL RECORD#: [id number] ADMISSION DATE: 03/23/2021 DISCHARGE DATE: 04/01/2021 ATTENDING MD: NINA: [id number] AGE: 86 MARITAL STATUS: W DC PLAN ID: [id number] FACILITY: [facility] PRINTED ON: 04/02/21 11:23 CT All edits/amendments must be made on the electronic document DICTATION DATE: 04/02/21 112 MANAGER WATER: JERROD 04/02/21 112 RPT#: [id number] DC DATE:04/01/21 STATUS: DIS IN [facility] [address] [place] [address] END OF REPORT
--- NOTE | 2021-04-05 09:13 | MORECARE ---
CASE MANAGEMENT DISCHARGE SUMMARY PATIENT: ANDI BRODY UNIT: [id number] ADM DATE: 03/23/21 AGE: 86 : 31 SEX: F ROOM/BED: D.8146 AUTHOR: ROWENA,DOC PHYSICIAN: REFERRING PHYSICIAN: ALEX AMBRIZ MD DATE OF SERVICE: 04/05/21 Case Management Discharge Planning Summary COMMENTS ENTERED DATE: 04/02/21 11:11 CT COMMENT TYPE: Discharge Planning REVIEWER: Yuko Duvall PT WAS DISCHARGED 04/01 TO [facility] IN [facility]. TRANSPORTED BY EMS. SENT PATIENT BELONGINGS BROUGHT TO THIS FACLITY BY THE [facility] WHICH CONSISTED OF 2 FILE BOXES OF CLOTHING. CONTACT NUMBER FOR [facility] IS [phone] ENTERED DATE: 03/30/21 13:36 CT COMMENT TYPE: Discharge Planning REVIEWER: Yuko Duvall CM spoke to patients daughter yesterday in length pertaining to SNF placement for patient. Pt had been a patient at the [facility] in , but had been denied return due to the increased level of care needs. Pt daughter was upset with facility and wanting to discuss other options. Pt informed CM that she wants her mother to go to [facility] in [facility]. Referral sent to [facility] at [phone]. Update from today is that patient needs a MICHELLE sent. Will plan to do that today. ENTERED DATE: 03/29/21 16:53 CT COMMENT TYPE: Discharge Planning REVIEWER: Yuko Duvall FAX SENT TO [facility] IN [facility]. SPOKE WITH DAUGHTER PEPE WILDER, WILL FOLLOW UP TOMORROW WITH JESUS AT [facility]. ENTERED DATE: 03/26/21 16:52 CT COMMENT TYPE: Discharge Planning REVIEWER: Yuko Duvall CM spoke with [facility] registered representative and was informed that patient is needs have increased and pt needs higher level of care. Will need to speak with family for KIERA and possible SNF. DCP REVIEW SUMMARY ANTICIPATED D/C DATE: 04/01/2021 EXPECTED LOS : 9 CASE STATUS: DCP Initiated INITIAL REVIEW: 03/23/2021 INITIAL REVIEWER: Yuko Duvall FINAL DISCHARGE DISPOSITION: : FINAL REVIEWER: FINAL REVIEW DATE: DCP [employer] Questions & Answers QUESTION: ANSWER : PATIENT: ANDI BRODY ENCOUNTER: [id number] MEDICAL RECORD#: [id number] ADMISSION DATE: 03/23/2021 DISCHARGE DATE: 04/01/2021 ATTENDING MD: NINA: [id number] AGE: 86 MARITAL STATUS: W DC PLAN ID: [id number] FACILITY: [facility] PRINTED ON: 04/05/21 9:12 CT All edits/amendments must be made on the electronic document DICTATION DATE: 04/05/21911 SILK SPREADER: JERROD 04/05/21911 RPT#: [id number] DC DATE:04/01/21 STATUS: DIS IN [facility] [address] [place] [address] END OF REPORT
== END 2021-04-01 14:50 | DRG 70 ==
LOC: D.ER 18:19 → D.M2 23:49 → D.EDHOLD 23:49 → D.M2 03-24 13:55
PROVIDERS: Emergency Medicine; Family Medicine; ADMIT Family Medicine; ATTEND Family Medicine
DX: G93.40 Encephalopathy, unspecified (principal); E43 Unspecified severe protein-calorie malnutrition; Z68.1 Body mass index [BMI] 19.9 or less, adult; R53.1 Weakness; D64.9 Anemia, unspecified; E83.42 Hypomagnesemia; E11.9 Type 2 diabetes mellitus without complications; I11.0 Hypertensive heart disease with heart failure; I50.9 Heart failure, unspecified; I48.91 Unspecified atrial fibrillation; J44.9 Chronic obstructive pulmonary disease, unspecified; F41.9 Anxiety disorder, unspecified; F03.90 Unspecified dementia, unspecified severity, without behavioral disturbance, psychotic disturbance, mood disturbance, and anxiety